=== PATIENT | female | born 1930 | race African-American/Black ===

== ENCOUNTER 2017-02-06 06:52 | Inpatient (IN) | payer OTHER ==
[2017-02-06 07:18] VITALS: BMI 15.6
[2017-02-06] MEDS ORDERED: ACETAMINOPHEN 1000 MG/100 ML VIAL (NON FORMULARY) IVPB ONE (07:29)
--- NOTE | 2017-02-06 07:36 | PDOC ---
History of Present Illness - General Chief Complaint: Injury Stated Complaint: FALL Time Seen by Provider: 02/06/17 07:11 History Source: Patient Exam Limitations: No Limitations - History of Present Illness Initial Comments: 02/06/17 07:50 86 yo F with significant PMHx of HTN, HLD, CHF, hypothyroidism , COPD and RA presents s/p fall x2. She states that last evening she fell walking from kitchen. she is not sure why she fell. She did not feel dizzy or legs did not give out. Unsure if she hit her head but was lightheaded after fall. Her aid was there to help her up. She was able to walk after. She then went to sleep and had to urinate. When she went to get up she states that her legs gave out and she fell again. Her niece was there to help her and called 911. She is not complaining of severe right leg pain 10/10 worse when she moves. No alleviating factors. Denies CP, DUTTON, SOB, abd. pain, N/V. Occurred: reports: just prior to arrival Severity: reports: moderate Pain Location: reports: lower extremity Method of Injury: Yes: fall Modifying Factors: improves with: rest Loss of Consciousness: no loss of consciousness Associated Symptoms (Fall): trouble walking Past History - Travel Traveled outside of the country in the last 30 days: No Close contact w/someone who was outside of country & ill: No - Past Medical History Allergies/Adverse Reactions: Allergies Allergy/AdvReac Type Severity Reaction Status Date / Time lactose Allergy Mild Verified 02/06/17 07:00 meperidine HCl [From Demerol] Allergy Verified 02/06/17 07:00 TAPE AdvReac Intermediate Uncoded 02/06/17 07:00 Home Medications: Ambulatory Orders Aspirin [ASA -] 81 mg PO DAILY 02/06/17 Atorvastatin Ca [Lipitor] 20 mg PO HS 02/06/17 Clopidogrel Bisulfate [Plavix -] 75 mg PO DAILY 02/06/17 Docusate Sodium 100 mg PO TID 02/06/17 Folic Acid 1 mg PO DAILY 02/06/17 Furosemide [Lasix] 40 mg PO DAILY 02/06/17 Isosorbide Mononitrate [Imdur -] 30 mg PO DAILY 02/06/17 Levothyroxine [Synthroid -] 50 mcg PO DAILY 02/06/17 Metoprolol Succinate [Toprol Xl] 50 mg PO DAILY 02/06/17 Montelukast Na [Singulair -] 10 mg PO HS 02/06/17 Multivitamin [Poly-Vitamin] 1 each PO DAILY 02/06/17 Omeprazole/Sodium Bicarbonate [Omeprazole-Bicarb 20-1,100 Cap] 1 each PO DAILY 02/06/17 Oxycodone HCl/Acetaminophen [Percocet 10-325 mg Tablet] 1 each PO Q6H PRN Prednisone 25 mg PO DAILY 02/06/17 Tizanidine HCl 2 mg PO DAILY 02/06/17 Trazodone HCl 50 mg PO HS 02/06/17 Anemia: Yes Asthma: Yes Cancer: No Cardiac Disorders: Yes CVA: No COPD: Yes (asthma, bronchitisbronchial pneumonia) CHF: No Dementia: No Diabetes: No GI Disorders: Yes (DIVERTICULITIS, polypscouldn'tbe taken out as pt on plavix and couldn't be) Disorders: No HTN: Yes Hypercholesterolemia: Yes Liver Disease: No Suicide Attempt (Hx): No Seizures: Yes (h/o trance-like episodes) Thyroid Disease: Yes (hypo) - Surgical History Abdominal Surgery: Yes Appendectomy: Yes Cardiac Surgery: Yes (cardiac stent X 3) Cholecystectomy: Yes Lung Surgery: Yes (Pul TB Lobectomy) Neurologic Surgery: No Orthopedic Surgery: Yes (RT HIP REPLACEMENT) - Immunization History Immunization Up to Date: Yes - Psycho/Social/Smoking Cessation Hx Anxiety: No Suicidal Ideation: No Smoking Status: Yes Smoking History: Never smoked Have you smoked in the past 12 months: No Number of Cigarettes Smoked Daily: 2 Information on smoking cessation initiated: No 'Breaking Loose' booklet given: 02/02/14 Hx Alcohol Use: No Drug/Substance Use Hx: No Substance Use Type: None Hx Substance Use Treatment: No Trauma Specific PMHX - Complaint Specific PMHX Arthritis: Yes (RA on chronic prednisone. ) Review of Systems - Review of Systems Able to Perform ROS?: Yes Is the patient limited Thai proficient: No Musculoskeletal: Yes: Joint Pain, Joint Stiffness All Other Systems: Reviewed and Negative *Physical Exam - Vital Signs Last Vital Signs Temp Pulse Resp BP Pulse Ox 97.1 F L 86 18 120/57 97 02/06/17 07:00 02/06/17 07:00 02/06/17 07:00 02/06/17 07:00 02/06/17 07:00 - Physical Exam General Appearance: Yes: Moderate Distress HEENT: positive: EOMI, MARCIO, Other (bilat. cataract) Neck: positive: Supple Respiratory/Chest: positive: Lungs Clear, Normal Breath Sounds. negative: Respiratory Distress, Accessory Muscle Use Cardiovascular: positive: Regular Rhythm, Tachycardia, Gallop/S3 Vascular Pulses: Dorsalis-Pedis (R): 1+, Doralis-Pedis (L): 1+ Gastrointestinal/Abdominal: positive: Normal Bowel Sounds, Flat, Soft, Other ( surgical scars midline). negative: Pulsatile Mass Musculoskeletal: positive: Normal Inspection. negative: CVA Tenderness Extremity: positive: Tender (severely tender on right hip. ), Other (calcified nodules on bilat. lateral thighs ). negative: Normal Range of Motion, Pelvis Stable, Swelling, Calf Tenderness Integumentary: positive: Normal Color, Dry, Warm, Other (calcified nodularities of bilat. lateral thighs. ). negative: Cyanotic, Erythema, Jaundice Neurologic: positive: edge burnisher II-XII NML intact, Fully Oriented, Alert, Normal Mood/ Affect. negative: Sensory Deficit ED Treatment Course - LABORATORY CBC & Chemistry Diagram: 02/07/17 06:40 02/07/17 06:40 - RADIOLOGY Radiology Studies Ordered: Category Date Time Status HEAD CT WITHOUT CONTRAST [CT] Stat CT Scan 02/06/17 07:29 Ordered HIP & PELVIS-RIGHT [RAD] Stat Radiology 02/06/17 07:27 Ordered Radiograph Interpretation: 02/06/17 09:44 * CT/HEAD CT WITHOUT CONTRAST Status post fall. CT scan of the brain without intravenous contrast. Since 09/01/2015, there remains moderate volume that is more prominent in the posterior fossa and moderate ventricular dilatation. Moderate periventricular chronic microvascular ischemic changes are present. No mass lesion, focal acute infarct or intracranial hemorrhage is seen. There is no shift of the midline structures. Minimal mucosal thickening in the ethmoid air cells. Calcification of the cavernous carotid arteries are present. The mastoid air cells are well aerated and the calvarium is intact IMPRESSION: No significant interval change or acute lung disease is present. Correlate clinically to determine further evaluation and follow-up Reported By: Sanjay Barnes MD 02/06/17 0901 Medical Decision Making - Medical Decision Making 02/06/17 08:06 A:86 yo F with significant PMHx of HTN, HLD, CHF, hypothyroidism , COPD and RA presents s/p fall x2. Possible hip fracture and will r/o IC bleed. P: * CBC,CMP,UA, and B12 * Hip/Pelvic Xray and Head CT w/o contrast. * IV tylenol for pain . *DC/Admit/Observation/Transfer Diagnosis at time of Disposition: Pelvic fracture Qualifiers: Encounter type: initial encounter Pelvic bone location: pubis Sublocation of pubis: unspecified portion of pubis Fracture type: closed Laterality: right Qualified Code(s): S32.501A - Unspecified fracture of right pubis, initial encounter for closed fracture - Discharge Dispostion Condition at time of disposition: Fair
[2017-02-06] MEDS ORDERED: ACETAMINOPHEN INJECTION 100 ML IVPB ONE (07:54)
--- NOTE | 2017-02-06 08:25 | PDOC ---
Attending Attestation - Resident Resident Name: Jose Eduardo Peoples - ED Attending Attestation I have performed the following: I have examined & evaluated the patient, The case was reviewed & discussed with the resident, I agree w/resident's findings & plan, Exceptions are as noted - HPI HPI: 02/06/17 08:22 86-year-old female with history of rheumatoid arthritis who walks with a walker at baseline presents with 2 falls since last night, the first with head injury but no loss of consciousness, the second this morning due to right leg weakness. Unable to stand after the second fall because of right groin/hip pain , has worsened mobility of her right lower extremity compared to baseline. No headache or focal neuro complaints. - Physicial Exam PE: 02/06/17 08:23 Vital signs normal. Head atraumatic. Right groin/pelvic tenderness, limited range of motion of the right lower extremity, but no shortening or rotation - Medical Decision Making 02/06/17 08:24 Patient seen and evaluated with the resident. I agree with the overall evaluation, assessment, and management with the following summary of visit: 86-year-old female with 2 falls, positive head injury, apparent right hip injury. Possible pelvic fracture, rule out TBI. Labs, urinalysis CT head, hip and right pelvis Pain control Likely admission 02/06/17 12:29 labs wnl, CT confirms fracture R inf pubis and ischial spine fx. non-ambulatory and requiring pain meds, will need pain control and likely rehab. D/W Dr. Centeno, agrees and requests admission to Dr. Godwin, who accepts pt for inpatient med/surg. Discharge Disposition - Diagnosis Pelvic fracture Qualifiers: Encounter type: initial encounter Pelvic bone location: pubis Sublocation of pubis: unspecified portion of pubis Fracture type: closed Laterality: right Qualified Code(s): S32.501A - Unspecified fracture of right pubis, initial encounter for closed fracture - Discharge Dispostion Condition at time of disposition: Fair Last Admission D/C Date: 09/05/15 Admit: Yes - Referrals Referrals: Jeff Centeno MD [Primary Care Provider] -
[2017-02-06 08:38] LABS: BASOPHIL 0.8 % (0-2.0); EOSINOPHIL 1.4 % (0-4.5); MCH 30.9 pg (25.7-33.7); MCHC 33.6 g/dl (32.0-36.0); MEAN CELL VOLUME 92.1 fl (80-96); MEAN PLT VOLUME 6.3 fl (7.5-11.1); NEUTROPHILS 77.8 % (42.8-82.8); PLATELET COUNT 364 K/MM3 (134-434); RDW 17.7 % (11.6-15.6); WHITE BLOOD COUNT 12.8 K/mm3 (4.0-10.0)
[2017-02-06 08:49] LABS: ALBUMIN 3.8 g/dl (3.4-5.0); BILIRUBIN,TOTAL 0.4 mg/dL (0.2-1.0); CALCIUM 8.9 mg/dL (8.5-10.1); COCKROFT - GAULT 25.6955; CREATININE 0.9 mg/dL (0.55-1.02); TOT PROT 7.7 g/dl (6.4-8.2)
[2017-02-06] MEDS ORDERED: oxyCODONE HCL 5 MG TABLET PO PRN (13:38)
[2017-02-06] MEDS ORDERED: ACETAMINOPHEN 325 MG TABLET (FP) PO PRN (13:38)
--- NOTE | 2017-02-06 13:58 | EKG ---
Test Reason : Blood Pressure : / mmHG Vent. Rate : 080 BPM Atrial Rate : 080 BPM P-R Int : 144 ms QRS Dur : 136 ms QT Int : 406 ms P-R-T Axes : 079 -61 014 degrees QTc Int : 468 ms NORMAL SINUS RHYTHM RIGHT BUNDLE BRANCH BLOCK LEFT ANTERIOR FASCICULAR BLOCK BIFASCICULAR BLOCK ABNORMAL ECG WHEN COMPARED WITH ECG OF 26-MAR-2016 20:14, ST NO LONGER DEPRESSED IN ANTERIOR LEADS Confirmed by KATT GALVEZ MD ([id number]) on 02/06/2017 1:58:34 PM Referred By: Confirmed By:KATT GALVEZ MD
[2017-02-06] MEDS ORDERED: DOCUSATE SODIUM 100 MG CAPSULE (FP) PO ONE (14:50)
[2017-02-06] MEDS ORDERED: oxyCODONE HCL 5 MG TABLET ONE (15:16)
[2017-02-06] MEDS: DOCUSATE SODIUM 100 MG CAPSULE (FP) PO SCH ×2 (17:52→21:09)
[2017-02-06 19:03] LABS: URINE APPEARANCE CLEAR; URINE BILIRUBIN NEGATIVE (NEGATIVE); URINE COLOR LTYELLOW; URINE GLUCOSE (UA) NEGATIVE (NEGATIVE); URINE KETONE NEGATIVE (NEGATIVE); URINE LEUK ESTERASE NEGATIVE (NEGATIVE); URINE NITRITE NEGATIVE (NEGATIVE); URINE PROTEIN NEGATIVE (NEGATIVE); URINE UROBILINOGEN NEGATIVE E.U./dl (0.2-1.0)
[2017-02-06 19:07] LABS: URINE BLOOD 1+ (NEGATIVE)
[2017-02-06 19:12] LABS: URINE RBC 4 /hpf (0-3); URINE WBC <1 /hpf (3-5)
[2017-02-06] MEDS: oxyCODONE HCL 5 MG TABLET PO PRN (19:55)
[2017-02-06] MEDS: ACETAMINOPHEN 325 MG TABLET (FP) PO PRN (19:57)
[2017-02-06] MEDS: MONTELUKAST NA 10 MG TABLET PO SCH (21:09)
[2017-02-06] MEDS: ATORVASTATIN CA 20 MG TABLET (FP) PO SCH (21:09)
[2017-02-07] MEDS: ACETAMINOPHEN 325 MG TABLET (FP) PO PRN ×5 (00:05→19:23)
[2017-02-07] MEDS: oxyCODONE HCL 5 MG TABLET PO PRN ×5 (00:06→19:24)
[2017-02-07] MEDS: LEVOTHYROXINE NA 50 MCG TABLET (FP) PO SCH (06:12)
[2017-02-07] MEDS: DOCUSATE SODIUM 100 MG CAPSULE (FP) PO SCH ×3 (06:12→21:31)
[2017-02-07 07:29] LABS: MCH 30.9 pg (25.7-33.7); MCHC 34.3 g/dl (32.0-36.0); MEAN CELL VOLUME 90.2 fl (80-96); MEAN PLT VOLUME 5.9 fl (7.5-11.1); PLATELET COUNT 351 K/MM3 (134-434); RDW 17.5 % (11.6-15.6); WHITE BLOOD COUNT 11.7 K/mm3 (4.0-10.0)
[2017-02-07 07:58] LABS: ALBUMIN 2.7 g/dl (3.4-5.0); ALK PHOS 67 U/L (45-117); ANION GAP 10 (8-16); BILIRUBIN,TOTAL 0.3 mg/dL (0.2-1.0); CALCIUM 8.3 mg/dL (8.5-10.1); CO2 25 mmol/L (21-32); COCKROFT - GAULT 46.2655; CREATININE 0.5 mg/dL (0.55-1.02); GLUCOSE,RANDOM 93 mg/dL (74-106); SGOT/AST 10 U/L (15-37); SGPT/ALT 14 U/L (12-78); TOT PROT 5.6 g/dl (6.4-8.2)
[2017-02-07] MEDS: CLOPIDOGREL BISULFATE 75 MG TABLET (FP) PO SCH (09:28)
[2017-02-07] MEDS: ISOSORBIDE MONONITRATE 30 MG TAB.SR.24H (FP) PO SCH (09:28)
[2017-02-07] MEDS: ASPIRIN 81 MG CHEWABLE TABLETS PO SCH (09:28)
[2017-02-07] MEDS: FOLIC ACID 1 MG TABLET (FP) PO SCH (09:28)
[2017-02-07] MEDS: METOPROLOL SUCCINATE 50 MG TAB.SR.24H (FP) PO SCH (09:28)
[2017-02-07] MEDS: predniSONE 5 MG TABLET (UD) PO SCH (09:28)
--- NOTE | 2017-02-07 10:29 | PN ---
Progress Note (short form) - Note Progress Note: Pt seen and examined. She is an 86 year old female 4 days s/p fall, with c/o pain with weight bearing in the right steph pelvis area. She is able to ambulate. PE Pt is quite thin. In NAD. B/L are NVI. Right hip + pain with log rolling and axial load, in entire right steph pelvis area. Good ROM at the right knee, ankle, foot, toes. Straight leg raise not possible bc of too much pain. Xrays and CT scan show acute fractures at the right inferior pubic ramus and the ischial spine. Imp 86 yo F 4 days s/p fall with acute fractures of the right inferior pubic ramus and ischial spine. Rec P.T. for ambulation, WBAT, walker, assistance. Consider anticoagulation, SCDs. Can DC from an orthopedic pov, no surgery planned. F/u as an out pt
--- NOTE | 2017-02-07 10:47 | HP ---
Admitting History and Physical - Primary Care Physician PCP: Jeff Centeno M - Admission Chief Complaint: s/p fall History of Present Illness: ER HISTORY - History of Present Illness Initial Comments: 02/06/17 07:50 86 yo F with significant PMHx of HTN, HLD, CHF, hypothyroidism , COPD and RA presents s/p fall x2. She states that last evening she fell walking from kitchen. she is not sure why she fell. She did not feel dizzy or legs did not give out. Unsure if she hit her head but was lightheaded after fall. Her aid was there to help her up. She was able to walk after. She then went to sleep and had to urinate. When she went to get up she states that her legs gave out and she fell again. Her niece was there to help her and called 911. She is not complaining of severe right leg pain 10/10 worse when she moves. No alleviating factors. Denies CP, DUTTON, SOB, abd. pain, N/V. Pt examined by me in the floors Pt walks with a walker and lives at home. Her legs gave out twice and fell twice. Found to have fractures of right inferior pubic ramus and ischial spine. C/o pain in right hip even after receiving Oxycodone today . Was seen by Ortho today . No dizziness, chest pain , head injuries. History Source: Patient Limitations to Obtaining History: No Limitations - Past Medical History Cardiovascular: Yes: CAD, HTN, Hyperlipdemia Gastrointestinal: Yes: Other (chronic biliary dilitation, dilitation common intrahepatic, hx colitis) Hepatobiliary: Yes: Other (MRCP--dilated intrahepatic ducts) Renal/: Yes: Other (hyponatremia) Heme/Onc: Yes: Anemia Musculoskeletal: Yes: Osteoarthritis (thigh pain , right THR), Other ( calicifications both thighs-- chronic per pt -- due to ?injection) Rheumatology: Yes: Rheumatoid Arthritis - Past Surgical History Past Surgical History: Yes: Appendectomy, Cholecystectomy, Joint Replacement (R THR), Stent - Smoking History Smoking history: Never smoked Have you smoked in the past 12 months: No Aproximately how many cigarettes per day: 2 - Alcohol/Substance Use Hx Alcohol Use: No - Social History Occupation: retired physician office secretary History of Recent Travel: No Home Medications - Allergies Allergies/Adverse Reactions: Allergies Allergy/AdvReac Type Severity Reaction Status Date / Time lactose Allergy Mild Verified 02/06/17 07:00 meperidine HCl [From Demerol] Allergy Verified 02/06/17 07:00 TAPE AdvReac Intermediate Uncoded 02/06/17 07:00 - Home Medications Home Medications: Ambulatory Orders Aspirin [ASA -] 81 mg PO DAILY 02/06/17 Atorvastatin Ca [Lipitor] 20 mg PO HS 02/06/17 Clopidogrel Bisulfate [Plavix -] 75 mg PO DAILY 02/06/17 Docusate Sodium 100 mg PO TID 02/06/17 Folic Acid 1 mg PO DAILY 02/06/17 Furosemide [Lasix] 40 mg PO DAILY 02/06/17 Isosorbide Mononitrate [Imdur -] 30 mg PO DAILY 02/06/17 Levothyroxine [Synthroid -] 50 mcg PO DAILY 02/06/17 Metoprolol Succinate [Toprol Xl] 50 mg PO DAILY 02/06/17 Montelukast Na [Singulair -] 10 mg PO HS 02/06/17 Multivitamin [Poly-Vitamin] 1 each PO DAILY 02/06/17 Omeprazole/Sodium Bicarbonate [Omeprazole-Bicarb 20-1,100 Cap] 1 each PO DAILY 02/06/17 Oxycodone HCl/Acetaminophen [Percocet 10-325 mg Tablet] 1 each PO Q6H PRN Prednisone 25 mg PO DAILY 02/06/17 Tizanidine HCl 2 mg PO DAILY 02/06/17 Trazodone HCl 50 mg PO HS 02/06/17 Family Disease History - Family Disease History Family Disease History: Heart Disease: Father, Mother, Other: Daughter (healthy and living) Review of Systems - Review of Systems Constitutional: denies: Chills, Fever Musculoskeletal: reports: Joint Pain Physical Examination Vital Signs: Vital Signs Temperature 98.8 F 02/07/17 09:31 Pulse Rate 95 H 02/07/17 09:31 Respiratory Rate 20 02/07/17 09:31 Blood Pressure 145/69 02/07/17 09:31 O2 Sat by Pulse Oximetry (%) 98 02/06/17 21:00 Constitutional: Yes: No Distress, Calm Cardiovascular: Yes: Regular Rate and Rhythm Respiratory: Yes: CTA Bilaterally Gastrointestinal: Yes: Normal Bowel Sounds, Soft, Other (surgical scar+). No: Tenderness Extremities: Yes: Other (able to move her legs , she had calcified maritza on both thighs which are chronic per patient) Edema: No Labs: CBC, BMP 02/07/17 06:40 02/07/17 06:40 Imaging - Results Chest X-ray: Image Reviewed (no infiltrate or congestion) X-ray: Report Reviewed Cat Scan: Report Reviewed EKG: Image Reviewed (NSR, Left ant. fascicular block) Problem List - Problems (1) Pelvic fracture Code(s): S32.9XXA - FRACTURE OF UNSP PARTS OF LUMBOSACRAL SPINE AND PELVIS, INIT Qualifiers: Encounter type: initial encounter Pelvic bone location: pubis Sublocation of pubis: unspecified portion of pubis Fracture type: closed Laterality: right Qualified Code(s): S32.501A - Unspecified fracture of right pubis, initial encounter for closed fracture (2) Intractable pain Code(s): R52 - PAIN, UNSPECIFIED (3) HTN (hypertension) Code(s): I10 - ESSENTIAL (PRIMARY) HYPERTENSION Qualifiers: Hypertension type: essential hypertension Qualified Code(s): I10 - Essential (primary) hypertension (4) Hip pain Code(s): M25.559 - PAIN IN UNSPECIFIED HIP Qualifiers: Laterality: left Qualified Code(s): M25.552 - Pain in left hip (5) Fall Code(s): W19.XXXA - UNSPECIFIED FALL, INITIAL ENCOUNTER Assessment/Plan PLAN Pain control -- add tramadol Physical therapy continue with meds CT head- negative CT pelvis shows fractures of rt pubic ramus and ischial spine OOB DVT prophylaxis- Heparin sc Ortho eval noted may need SNF Spoke with nurse Time spent 30 min
[2017-02-07] MEDS: traMADol HCL 50 MG TABLET PO PRN ×3 (12:17→21:31)
[2017-02-07] MEDS: PANTOPRAZOLE 40 MG TABLET (FP) PO SCH (12:18)
[2017-02-07] MEDS: MONTELUKAST NA 10 MG TABLET PO SCH (21:31)
[2017-02-07] MEDS: ATORVASTATIN CA 20 MG TABLET (FP) PO SCH (21:31)
[2017-02-08] MEDS: oxyCODONE HCL 5 MG TABLET PO PRN ×5 (02:56→21:55)
[2017-02-08] MEDS: ACETAMINOPHEN 325 MG TABLET (FP) PO PRN ×5 (02:57→21:56)
[2017-02-08] MEDS: traMADol HCL 50 MG TABLET PO PRN ×3 (05:42→19:53)
[2017-02-08] MEDS: DOCUSATE SODIUM 100 MG CAPSULE (FP) PO SCH ×3 (05:43→21:10)
[2017-02-08] MEDS: LEVOTHYROXINE NA 50 MCG TABLET (FP) PO SCH (06:09)
[2017-02-08] MEDS: ENOXAPARIN NA (PORCINE) 40 MG/0.4 ML DISP.SYRIN SQ SCH (10:23)
[2017-02-08] MEDS: ISOSORBIDE MONONITRATE 30 MG TAB.SR.24H (FP) PO SCH (10:23)
[2017-02-08] MEDS: PANTOPRAZOLE 40 MG TABLET (FP) PO SCH (10:23)
[2017-02-08] MEDS: FOLIC ACID 1 MG TABLET (FP) PO SCH (10:23)
[2017-02-08] MEDS: predniSONE 5 MG TABLET (UD) PO SCH (10:23)
[2017-02-08] MEDS: ASPIRIN 81 MG CHEWABLE TABLETS PO SCH (10:23)
[2017-02-08] MEDS: METOPROLOL SUCCINATE 50 MG TAB.SR.24H (FP) PO SCH (10:24)
[2017-02-08] MEDS: CLOPIDOGREL BISULFATE 75 MG TABLET (FP) PO SCH (10:24)
--- NOTE | 2017-02-08 10:37 | DS ---
Physical Examination Vital Signs: Vital Signs Temperature 98.4 F 02/08/17 05:38 Pulse Rate 90 02/08/17 05:38 Respiratory Rate 20 02/08/17 05:38 Blood Pressure 154/76 02/08/17 05:38 O2 Sat by Pulse Oximetry (%) 98 02/07/17 21:00 Labs: CBC, BMP 02/07/17 06:40 02/07/17 06:40 <Kristi Godwin - Last Filed: 02/08/17 10:36> Vital Signs: Vital Signs Temperature 98.4 F 02/08/17 05:38 Pulse Rate 90 02/08/17 05:38 Respiratory Rate 20 02/08/17 05:38 Blood Pressure 154/76 02/08/17 05:38 O2 Sat by Pulse Oximetry (%) 98 02/07/17 21:00 Findings/Remarks: Patient seen and examined. Comfortable. Pain under control. Ortho follow up noted. Constitutional: Yes: No Distress, Calm Neck: Yes: Supple Cardiovascular: Yes: Regular Rate and Rhythm Respiratory: Yes: CTA Bilaterally Edema: No Neurological: Yes: Alert Labs: CBC, BMP 02/07/17 06:40 02/07/17 06:40 <Jeane Hernández - Last Filed: 02/08/17 11:17> Discharge Summary Reason For Visit: FRACTURE OF PELVIS Current Active Problems DVT prophylaxis (Acute) Dilated cbd, acquired (Acute) Fall (Acute) Pelvic fracture (Acute) COPD (chronic obstructive pulmonary disease) (Chronic) Intractable pain (Chronic) - Home Medications Comprehensive Discharge Medication List: Ambulatory Orders Aspirin [ASA -] 81 mg PO DAILY 02/06/17 Atorvastatin Ca [Lipitor] 20 mg PO HS 02/06/17 Clopidogrel Bisulfate [Plavix -] 75 mg PO DAILY 02/06/17 Docusate Sodium 100 mg PO TID 02/06/17 Folic Acid 1 mg PO DAILY 02/06/17 Furosemide [Lasix] 40 mg PO DAILY 02/06/17 Isosorbide Mononitrate [Imdur -] 30 mg PO DAILY 02/06/17 Levothyroxine [Synthroid -] 50 mcg PO DAILY 02/06/17 Metoprolol Succinate [Toprol Xl] 50 mg PO DAILY 02/06/17 Montelukast Na [Singulair -] 10 mg PO HS 02/06/17 Multivitamin [Poly-Vitamin] 1 each PO DAILY 02/06/17 Omeprazole/Sodium Bicarbonate [Omeprazole-Bicarb 20-1,100 Cap] 1 each PO DAILY 02/06/17 Tizanidine HCl 2 mg PO DAILY 02/06/17 Trazodone HCl 50 mg PO HS 02/06/17 Acetaminophen [Tylenol .Regular Strength -] 325 mg PO Q4H PRN #0 tablet Enoxaparin [Lovenox -] 40 mg SQ DAILY #40 inch 02/08/17 Pantoprazole Sodium [Protonix -] 40 mg PO DAILY #30 cap 02/08/17 Prednisone [Deltasone -] 5 mg PO DAILY tablet 02/08/17 Tramadol HCl [Ultram -] 50 mg PO Q4H PRN #60 tablet MDD 4 02/08/17 <Kristi Godwin - Last Filed: 02/08/17 10:36> Current Active Problems DVT prophylaxis (Acute) Dilated cbd, acquired (Acute) Fall (Acute) Pelvic fracture (Acute) COPD (chronic obstructive pulmonary disease) (Chronic) Intractable pain (Chronic) Hospital Course: Patient is a 86 yo F with PMHx of HTN, HLD, CHF, hypothyroidism, COPD and RA who was admitted to the hospital s/p fall. Workup revealed she has R inferior pubic ramus fracture. Ortho consult was taken. No surgery intervention needed. Pt will need PT. Will benefit from short term rehab. Discussed with patient. Patient lives alone. Patient agrees with the plan. Medically stable for d.c when bed available. Meds reconciled and updated. Plan discussed with nursing staff and casey saw operator. Time spent discharge planning, examining and documenting as well as coordinating care: 35 mins Documentation prepared by Jeane Hernández, acting as a medical economics consultant for Kristi Godwin MD. - Home Medications Comprehensive Discharge Medication List: Ambulatory Orders Aspirin [ASA -] 81 mg PO DAILY 02/06/17 Atorvastatin Ca [Lipitor] 20 mg PO HS 02/06/17 Clopidogrel Bisulfate [Plavix -] 75 mg PO DAILY 02/06/17 Docusate Sodium 100 mg PO TID 02/06/17 Folic Acid 1 mg PO DAILY 02/06/17 Furosemide [Lasix] 40 mg PO DAILY 02/06/17 Isosorbide Mononitrate [Imdur -] 30 mg PO DAILY 02/06/17 Levothyroxine [Synthroid -] 50 mcg PO DAILY 02/06/17 Metoprolol Succinate [Toprol Xl] 50 mg PO DAILY 02/06/17 Montelukast Na [Singulair -] 10 mg PO HS 02/06/17 Multivitamin [Poly-Vitamin] 1 each PO DAILY 02/06/17 Omeprazole/Sodium Bicarbonate [Omeprazole-Bicarb 20-1,100 Cap] 1 each PO DAILY 02/06/17 Tizanidine HCl 2 mg PO DAILY 02/06/17 Trazodone HCl 50 mg PO HS 02/06/17 Acetaminophen [Tylenol .Regular Strength -] 325 mg PO Q4H PRN #0 tablet Enoxaparin [Lovenox -] 40 mg SQ DAILY #40 inch 02/08/17 Pantoprazole Sodium [Protonix -] 40 mg PO DAILY #30 cap 02/08/17 Prednisone [Deltasone -] 5 mg PO DAILY tablet 02/08/17 Tramadol HCl [Ultram -] 50 mg PO Q4H PRN #60 tablet MDD 4 02/08/17 <Jeane Hernández - Last Filed: 02/08/17 11:17> Condition: Fair - Instructions Referrals: Jeff Centeno MD [Primary Care Provider] -
--- NOTE | 2017-02-08 10:45 | PN ---
Progress Note (short form) - Note Progress Note: AVSS MORE COMFORTABLE TODAY CALF SOFT AND NT NVI IMP: IMPROVING PLAN: OOB, PT-WBAT, DC PLANING
[2017-02-08] MEDS: MONTELUKAST NA 10 MG TABLET PO SCH (21:10)
[2017-02-08] MEDS: ATORVASTATIN CA 20 MG TABLET (FP) PO SCH (21:10)
[2017-02-09] MEDS: oxyCODONE HCL 5 MG TABLET PO PRN ×4 (02:06→14:41)
[2017-02-09] MEDS: ACETAMINOPHEN 325 MG TABLET (FP) PO PRN ×4 (02:07→14:41)
[2017-02-09] MEDS: DOCUSATE SODIUM 100 MG CAPSULE (FP) PO SCH ×2 (06:02→15:15)
[2017-02-09] MEDS: LEVOTHYROXINE NA 50 MCG TABLET (FP) PO SCH (06:03)
[2017-02-09] MEDS: FOLIC ACID 1 MG TABLET (FP) PO SCH (09:45)
[2017-02-09] MEDS: ISOSORBIDE MONONITRATE 30 MG TAB.SR.24H (FP) PO SCH (09:45)
[2017-02-09] MEDS: PANTOPRAZOLE 40 MG TABLET (FP) PO SCH (09:45)
[2017-02-09] MEDS: METOPROLOL SUCCINATE 50 MG TAB.SR.24H (FP) PO SCH (09:45)
[2017-02-09] MEDS: ENOXAPARIN NA (PORCINE) 40 MG/0.4 ML DISP.SYRIN SQ SCH (09:45)
[2017-02-09] MEDS: predniSONE 5 MG TABLET (UD) PO SCH (09:45)
[2017-02-09] MEDS: ASPIRIN 81 MG CHEWABLE TABLETS PO SCH (09:45)
[2017-02-09] MEDS: CLOPIDOGREL BISULFATE 75 MG TABLET (FP) PO SCH (09:45)
--- NOTE | 2017-02-09 12:56 | PN ---
Progress Note (short form) - Note Progress Note: comfortable but need pain meds no other issues Vital Signs Temp 98 F 02/09/17 06:18 Pulse 86 02/09/17 06:18 Resp 18 02/09/17 06:18 BP 153/81 02/09/17 06:18 Pulse Ox 96 02/08/17 08:00 Intake & Output 02/08/17 02/09/17 02/09/17 23:59 11:59 23:59 Intake Total 350 400 Output Total 400 200 Balance -50 200 Weight 96 lb 8 oz Intake: Oral 350 400 Output: Urine 400 200 Void 400 200 Other: Voiding Method Bedpan Bedpan Bowel Movement Yes Active Medications Acetaminophen (Tylenol -) 325 mg PO Q4H PRN PRN Reason: PAIN Last Admin: 02/09/17 09:53 Dose: 325 mg Aspirin (Asa -) 81 mg PO DAILY [facility] Last Admin: 02/09/17 09:45 Dose: 81 mg Atorvastatin Calcium (Lipitor -) 20 mg PO [facility] Last Admin: 02/08/17 21:10 Dose: 20 mg Clopidogrel Bisulfate (Plavix -) 75 mg PO DAILY [facility] Last Admin: 02/09/17 09:45 Dose: 75 mg Docusate Sodium (Colace -) 100 mg PO TID [facility] Last Admin: 02/09/17 06:02 Dose: 100 mg Enoxaparin Sodium (Lovenox -) 40 mg SQ DAILY [facility] Last Admin: 02/09/17 09:45 Dose: 40 mg Folic Acid (Folic Acid -) 1 mg PO DAILY [facility] Last Admin: 02/09/17 09:45 Dose: 1 mg Isosorbide Mononitrate (Imdur -) 30 mg PO DAILY [facility] Last Admin: 02/09/17 09:45 Dose: 30 mg Levothyroxine Sodium (Synthroid -) 50 mcg PO DAILY@0700 [facility] Last Admin: 02/09/17 06:03 Dose: 50 mcg Metoprolol Succinate (Toprol Xl -) 50 mg PO DAILY [facility] Last Admin: 02/09/17 09:45 Dose: 50 mg Montelukast Sodium (Singulair -) 10 mg PO [facility] Last Admin: 02/08/17 21:10 Dose: 10 mg Oxycodone HCl (Roxicodone -) 10 mg PO Q4H PRN PRN Reason: PAIN Last Admin: 02/09/17 09:54 Dose: 10 mg Pantoprazole Sodium (Protonix -) 40 mg PO DAILY [facility] Last Admin: 02/09/17 09:45 Dose: 40 mg Prednisone (Deltasone -) 5 mg PO DAILY [facility] Last Admin: 02/09/17 09:45 Dose: 5 mg Tramadol HCl (Ultram -) 50 mg PO Q4H PRN PRN Reason: PAIN Last Admin: 02/08/17 19:53 Dose: 50 mg Physical Constitutional: Yes: No Distress, Calm/ comfortable Neck: Yes: Supple Cardiovascular: Yes: Regular Rate and Rhythm Respiratory: Yes: CTA Bilaterally Edema: No Neurological: Yes: Alert a/p stable anticipate d/c to long-term for str today discussed with transplant case manager see discharge summary of yesterday
[2017-02-09 14:05] VITALS: PULSE 88; TEMP 98.4
[2017-02-09 16:42] VITALS: BP 138/74
== END 2017-02-09 17:32 | DRG 536 ==
LOC: JER 06:52 → JERBED 13:00 → J6S 15:35
PROVIDERS: ADMIT Internal Medicine; ATTEND Internal Medicine
DX: S32.591A Other specified fracture of right pubis, initial encounter for closed fracture (principal); E03.9 Hypothyroidism, unspecified; J44.9 Chronic obstructive pulmonary disease, unspecified; I11.0 Hypertensive heart disease with heart failure; I50.9 Heart failure, unspecified; E78.5 Hyperlipidemia, unspecified; M06.9 Rheumatoid arthritis, unspecified; W18.39XA Other fall on same level, initial encounter; Y93.89 Activity, other specified; Y92.090 Kitchen in other non-institutional residence as the place of occurrence of the external cause; Y99.8 Other external cause status
CPT/HCPCS: 36415; 70450-TC; 71010-TC; 72192-TC; 73523-TC; 80053; 81003; 81015; 82607; 85025; 85027; 93005; 93010; 97116-GP; 97162-PG; 99285-25

== ENCOUNTER 2017-10-18 14:40 | Inpatient (IN) | payer OTHER ==
--- NOTE | 2017-10-18 15:31 | PDOC ---
Attending Attestation - Resident Resident Name: Edgar Roberto - ED Attending Attestation I have performed the following: I have examined & evaluated the patient, The case was reviewed & discussed with the resident, I agree w/resident's findings & plan, Exceptions are as noted - HPI HPI: 10/18/17 15:31 87y F hx of htn, HL, asthma, diverticulitis, cad on plavix presents s/p fall - pt states she fell yetserday morning and has been too weak to get up and to call EMS. She finally made it to the phone this morning and was able to call her landlord who called EMS. The pt denies head injury, LOC, neck pain, back pain, chest pain, palpitatoins, sob. Pt endorses some pain in the R wrist and L hip. On exam the pt has n focal tendernes sbut some pain on ROM of her R wrist. Her L hip noted for mild pain when ranging her leg. consider possible pelvic vs hip fx will obtain xray to r/o wrist fx labs to r/o metabolic dernagement, anemia ekg to screen for arrythmia ua to screen for occult infection . - Physicial Exam PE: 10/18/17 17:28 see abobve - Medical Decision Making 10/18/17 17:28 see abve Heart Score/ECG Review - ECG Impressions Comment:: 10/18/17 17:28 Twelve-lead EKG was performed and reviewed by me. There is normal sinus rhythm with a normal rate. 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
[2017-10-18] MEDS ORDERED: ACETAMINOPHEN 325 MG TABLET (FP) PO ONE (15:43)
[2017-10-18] MEDS ORDERED: ACETAMINOPHEN 325 MG TABLET (FP) ONE (16:47)
--- NOTE | 2017-10-18 16:57 | PDOC ---
History of Present Illness - General Chief Complaint: Injury Stated Complaint: FALL Time Seen by Provider: 10/18/17 15:23 - History of Present Illness Initial Comments: 10/18/17 16:59 The patient is an 87 year old female with a history of HTN, COPD, HLD, who presents for evaluation following a fall. The patient reports that she fell while going to the bathroom yesterday evening. She states that she was walking to the bathroom and her "legs gave out on her due to her arthritis". She denies LOC or head trauma. She denies any lightheadedness, dizziness, chest pain, SOB, or palpitations at the time of the fall nor currently. She states she was unable to get up and stayed there all night until she was found and EMS was called. She currently complains of left lower extremity pain. She denies any nausea, vomiting, abdominal pain, or changes with urination or bowel movements. Past History - Past Medical History Allergies/Adverse Reactions: Allergies Allergy/AdvReac Type Severity Reaction Status Date / Time lactose Allergy Mild Verified 02/06/17 07:00 meperidine HCl [From Demerol] Allergy Verified 02/06/17 07:00 TAPE AdvReac Intermediate Uncoded 02/06/17 07:00 Home Medications: Ambulatory Orders Atorvastatin Ca [Lipitor] 20 mg PO HS 02/06/17 Clopidogrel Bisulfate [Plavix -] 75 mg PO DAILY 02/06/17 Docusate Sodium 100 mg PO TID 02/06/17 Folic Acid 1 mg PO DAILY 02/06/17 Furosemide [Lasix] 40 mg PO DAILY 02/06/17 Isosorbide Mononitrate [Imdur -] 30 mg PO DAILY 02/06/17 Levothyroxine [Synthroid -] 50 mcg PO DAILY 02/06/17 Metoprolol Succinate [Toprol Xl] 50 mg PO DAILY 02/06/17 Multivitamin [Poly-Vitamin] 1 each PO DAILY 02/06/17 Acetaminophen [Tylenol .Regular Strength -] 325 mg PO Q4H PRN #0 tablet Oxycodone HCl [Roxicodone -] 10 mg PO Q4H PRN #60 tablet MDD 6 02/08/17 Anemia: Yes Asthma: Yes Cancer: No Cardiac Disorders: Yes CVA: No COPD: Yes (asthma, bronchitisbronchial pneumonia) CHF: No Dementia: No Diabetes: No GI Disorders: Yes (DIVERTICULITIS, polypscouldn'tbe taken out as pt on plavix and couldn't be) Disorders: No HTN: Yes Hypercholesterolemia: Yes Liver Disease: No Seizures: Yes (h/o trance-like episodes) Thyroid Disease: Yes (hypo) - Surgical History Abdominal Surgery: Yes Appendectomy: Yes Cardiac Surgery: Yes (cardiac stent X 3) Cholecystectomy: Yes Lung Surgery: Yes (Pul TB Lobectomy) Neurologic Surgery: No Orthopedic Surgery: Yes (RT HIP REPLACEMENT) - Immunization History Immunization Up to Date: Yes - Suicide/Smoking/Psychosocial Hx Smoking Status: Yes Smoking History: Never smoked Have you smoked in the past 12 months: No Number of Cigarettes Smoked Daily: 2 Information on smoking cessation initiated: No 'Breaking Loose' booklet given: 02/02/14 Hx Alcohol Use: No Drug/Substance Use Hx: No Substance Use Type: None Hx Substance Use Treatment: No Review of Systems - Review of Systems Comments:: 10/18/17 17:05 Constitutional: No fevers, chills, fatigue, malaise HEENT: No Rhinorrhea, nasal congestion, visual changes Cardiovascular: No chest pain, syncope, palpitations, lightheadedness Respiratory: No Cough, SOB, Hemoptysis, Gastrointestinal: No Abdominal pain, Nausea, Vomiting, Constipation, Diarrhea, Melena Genitourinary: No Dysuria, Frequency, Urgency, Hesitancy, Hematuria, Flank pain Musculoskeletal: Left lower extremity pain. No Myalgia, arthralgia Skin: No rashes, bruising, pallor Neurologic: No Headache, Dizziness, Numbness, Weakness, or Tingling Psychiatric: No Hallucinations. No SI or HI *Physical Exam - Vital Signs Last Vital Signs Temp Pulse Resp BP Pulse Ox 98.3 F 101 H 20 154/86 96 10/18/17 14:42 10/18/17 14:42 10/18/17 14:42 10/18/17 14:42 10/18/17 14:42 - Physical Exam Comments: 10/18/17 17:05 General Appearance: Nourished. No Apparent Distress HEENT: EOMI, MARCIO. No obvious signs of head trauma. No Pharyngeal Erythema, Tonsillar Exudate, Tonsillar Erythema Neck: No Cervical Lymphadenopathy or -C-spine tenderness. Respiratory/Chest: Lungs Clear, Normal Breath Sounds. No Crackles, Rales, Rhonchi, Wheezing Cardiovascular: Regular Rhythm, Regular Rate. No Murmur, Gallops, Rubs Gastrointestinal/Abdominal: Normal Bowel Sounds, Soft. No Guarding, Rebound, Tenderness Musculoskeletal: No CVA Tenderness Extremity: Pain with movement of the left hip. Full range of motion of the left knee. Sensation to light touch and temperature intact in the distal extremities bilaterally, 2+ dp pulses bilaterally. Normal Capillary Refill Integumentary: Normal Color, Dry, Warm Neurologic: etcher machine II-XII NML intact, Fully Oriented, Alert, Normal Mood/Affect, Normal Response, ED Treatment Course - LABORATORY CBC & Chemistry Diagram: 10/18/17 18:00 10/18/17 18:00 - RADIOLOGY Radiology Studies Ordered: Category Date Time Status FEMUR-LEFT [RAD] Stat Radiology 10/18/17 15:41 Taken HIP & PELVIS-LEFT [RAD] Stat Radiology 10/18/17 15:41 Taken - Medications Given in the ED: ED Medications Discontinued Medications Generic Name Dose Route Start Last Admin Trade Name Joãoq PRN Reason Stop Dose Admin Acetaminophen 650 mg 10/18/17 15:43 10/18/17 16:51 Tylenol - PO 10/18/17 15:44 650 mg ONCE ONE Administration Oxycodone/Acetaminophen 1 combo 10/18/17 15:54 10/18/17 16:51 Percocet 5/325 - PO 10/18/17 15:55 1 combo ONCE ONE Administration Medical Decision Making - Medical Decision Making 10/18/17 17:11 The patient is an 87 year old female with a history of HTN, COPD, HLD, who presents for evaluation following a fall. Differential includes but is not limited to: Fracture, contusion, rhabdomylolysis, uti, infectious, metabolic derangement. Given the patient's physical exam, we will obtain plain films to evaluate for any signs of fracture. Given her long down time, we will obtain a cbc, cmp, cpk, ua to evaluate for other etiologies and rhabdo. We will continue to monitor and reassess. 10/18/17 18:00 Plain films do not demonstrate any signs of acute fracture as read by our radiologist. We attempted to walk the patient who reports that she is normally able to ambulate with a walker. The patient was unable to tolerate ambulation secondary to pain. Given her continued pain, we will obtain a ct pelvis to further evaluate for fracture. 10/18/17 19:00 Patient signed out to the night team. Dispo pending labs and ct pelvis. *DC/Admit/Observation/Transfer Diagnosis at time of Disposition: Hip pain Qualifiers: Laterality: left Qualified Code(s): M25.552 - Pain in left hip - Discharge Dispostion Condition at time of disposition: Stable - Referrals - Patient Instructions - Post Discharge Activity
[2017-10-18 18:18] LABS: BASO % 0.9 % (0-2.0); EOS % 3.1 % (0-4.5); HEMATOCRIT 32.9 % (32.4-45.2); HEMOGLOBIN 10.9 GM/dL (10.7-15.3); LYMPH % 16.4 % (8-40); MCH 29.5 pg (25.7-33.7); MCHC 33.1 g/dl (32.0-36.0); MEAN CELL VOLUME 89.3 fl (80-96); MONO % 5.7 % (3.8-10.2); NEUT % 73.9 % (42.8-82.8); PLATELET COUNT 627 K/MM3 (134-434); RBC 3.68 M/mm3 (3.60-5.2); RDW 16.6 % (11.6-15.6)
[2017-10-18 18:59] LABS: ALBUMIN 2.9 g/dl (3.4-5.0); ALK PHOS 100 U/L (45-117); ANION GAP 8 (8-16); BILIRUBIN,TOTAL 0.3 mg/dL (0.2-1.0); BLOOD UREA NITROGEN 12 mg/dL (7-18); CALCIUM 8.4 mg/dL (8.5-10.1); CHLORIDE 108 mmol/L (98-107); CO2 24 mmol/L (21-32); CREATININE 0.6 mg/dL (0.55-1.02); GLUCOSE,RANDOM 154 mg/dL (74-106); POTASSIUM 3.8 mmol/L (3.5-5.1); SGOT/AST 9 U/L (15-37); SGPT/ALT 10 U/L (12-78); SODIUM 140 mmol/L (136-145)
--- NOTE | 2017-10-18 19:54 | PDOC ---
History of Present Illness - General Chief Complaint: Injury Stated Complaint: FALL Time Seen by Provider: 10/18/17 15:23 Past History - Past Medical History Allergies/Adverse Reactions: Allergies Allergy/AdvReac Type Severity Reaction Status Date / Time lactose Allergy Mild Verified 02/06/17 07:00 meperidine HCl [From Demerol] Allergy Verified 02/06/17 07:00 TAPE AdvReac Intermediate Uncoded 02/06/17 07:00 Home Medications: Ambulatory Orders Aspirin [ASA -] 81 mg PO DAILY 02/06/17 Atorvastatin Ca [Lipitor] 20 mg PO HS 02/06/17 Clopidogrel Bisulfate [Plavix -] 75 mg PO DAILY 02/06/17 Docusate Sodium 100 mg PO TID 02/06/17 Folic Acid 1 mg PO DAILY 02/06/17 Furosemide [Lasix] 40 mg PO DAILY 02/06/17 Isosorbide Mononitrate [Imdur -] 30 mg PO DAILY 02/06/17 Levothyroxine [Synthroid -] 50 mcg PO DAILY 02/06/17 Metoprolol Succinate [Toprol Xl] 50 mg PO DAILY 02/06/17 Montelukast Na [Singulair -] 10 mg PO HS 02/06/17 Multivitamin [Poly-Vitamin] 1 each PO DAILY 02/06/17 Omeprazole/Sodium Bicarbonate [Omeprazole-Bicarb 20-1,100 Cap] 1 each PO DAILY 02/06/17 Tizanidine HCl 2 mg PO DAILY 02/06/17 Trazodone HCl 50 mg PO HS 02/06/17 Acetaminophen [Tylenol .Regular Strength -] 325 mg PO Q4H PRN #0 tablet Enoxaparin [Lovenox -] 40 mg SQ DAILY #40 inch 02/08/17 Oxycodone HCl [Roxicodone -] 10 mg PO Q4H PRN #60 tablet MDD 6 02/08/17 Pantoprazole Sodium [Protonix -] 40 mg PO DAILY #30 cap 02/08/17 Prednisone [Deltasone -] 5 mg PO DAILY tablet 02/08/17 Anemia: Yes Asthma: Yes Cancer: No Cardiac Disorders: Yes CVA: No COPD: Yes (asthma, bronchitisbronchial pneumonia) CHF: No Dementia: No Diabetes: No GI Disorders: Yes (DIVERTICULITIS, polypscouldn'tbe taken out as pt on plavix and couldn't be) Disorders: No HTN: Yes Hypercholesterolemia: Yes Liver Disease: No Seizures: Yes (h/o trance-like episodes) Thyroid Disease: Yes (hypo) - Surgical History Abdominal Surgery: Yes Appendectomy: Yes Cardiac Surgery: Yes (cardiac stent X 3) Cholecystectomy: Yes Lung Surgery: Yes (Pul TB Lobectomy) Neurologic Surgery: No Orthopedic Surgery: Yes (RT HIP REPLACEMENT) - Immunization History Immunization Up to Date: Yes - Suicide/Smoking/Psychosocial Hx Smoking Status: Yes Smoking History: Never smoked Have you smoked in the past 12 months: No Number of Cigarettes Smoked Daily: 2 Information on smoking cessation initiated: No 'Breaking Loose' booklet given: 02/02/14 Hx Alcohol Use: No Drug/Substance Use Hx: No Substance Use Type: None Hx Substance Use Treatment: No *Physical Exam - Vital Signs Last Vital Signs Temp Pulse Resp BP Pulse Ox 98.3 F 101 H 20 154/86 96 10/18/17 14:42 10/18/17 14:42 10/18/17 14:42 10/18/17 14:42 10/18/17 14:42 ED Treatment Course - LABORATORY CBC & Chemistry Diagram: 10/18/17 18:00 10/18/17 18:00 - ADDITIONAL ORDERS Additional order review: Laboratory Results 10/18/17 10/18/17 18:00 18:00 Sodium 140 Potassium 3.8 Chloride 108 H Carbon Dioxide 24 Anion Gap 8 BUN 12 Creatinine 0.6 Creat Clearance w eGFR > 60 Random Glucose 154 H Calcium 8.4 L Total Bilirubin 0.3 AST 9 L ALT 10 L D Alkaline Phosphatase 100 Creatine Kinase 132 Total Protein 7.0 D Albumin 2.9 L 10/18/17 18:00 RBC 3.68 MCV 89.3 MCHC 33.1 RDW 16.6 H MPV 6.0 L Neutrophils % 73.9 Lymphocytes % 16.4 D Monocytes % 5.7 Eosinophils % 3.1 D Basophils % 0.9 - Medications Given in the ED: ED Medications Discontinued Medications Generic Name Dose Route Start Last Admin Trade Name Freq PRN Reason Stop Dose Admin Acetaminophen 650 mg 10/18/17 15:43 10/18/17 16:51 Tylenol - PO 10/18/17 15:44 650 mg ONCE ONE Administration Oxycodone/Acetaminophen 1 combo 10/18/17 15:54 01/12/18 16:51 Percocet 5/325 - PO 10/18/17 15:55 1 combo ONCE ONE Administration Medical Decision Making - Medical Decision Making 10/18/17 19:49 Pt signed out by day team. Pt is a pleasant 87 y/o F who presented to ED with Left leg pain following a fall. Currently awaiting CT pelvis. CK normal. Pt stable, afebrile, in NAD. 10/19/17 00:14 CT pelvis shows no overt fracture. Pt is unable to bear weight. Pt accepted by hospitalist team for obs. 10/19/17 00:16 *DC/Admit/Observation/Transfer Diagnosis at time of Disposition: Hip pain Qualifiers: Laterality: left Qualified Code(s): M25.552 - Pain in left hip - Discharge Dispostion Condition at time of disposition: Stable Admit: Yes - Referrals Referrals: Jeff Centeno MD [Primary Care Provider] - - Patient Instructions - Post Discharge Activity
[2017-10-18 20:08] LABS: URINE APPEARANCE SLCLOUDY; URINE BILIRUBIN NEGATIVE (NEGATIVE); URINE BLOOD NEGATIVE (NEGATIVE); URINE COLOR YELLOW; URINE GLUCOSE (UA) NEGATIVE (NEGATIVE); URINE KETONE TRACE (NEGATIVE); URINE LEUK ESTERASE NEGATIVE (NEGATIVE); URINE NITRITE NEGATIVE (NEGATIVE); URINE PROTEIN NEGATIVE (NEGATIVE)
[2017-10-18] MEDS ORDERED: morphine CARPU-JECT 4 MG/1 ML DISP.SYRIN IVPUSH ONE (23:15)
[2017-10-18] MEDS ORDERED: morphine CARPU-JECT 2 MG/1 ML DISP.SYRIN IM ONE (23:28)
[2017-10-18] MEDS ORDERED: morphine CARPU-JECT 10 MG/1 ML DISP.SYRIN ONE (23:48)
--- NOTE | 2017-10-19 01:38 | HP ---
CHIEF COMPLAINT: left hip pain PCP: Jeff Centeno HISTORY OF PRESENT ILLNESS: This is an 87 year old female with a significant past medical history of falls and OA who presented to the ED s/p fall at home. She states her legs gave out under her and she was unable to get up until she heard her aid at the door the next morning and she called for help. Pt reports pain to her left hip since fall and is unable to ambulate. ER course was notable for: (1) xray and CT negative for fracture, severe [id number] arthritis of left hip Recent Travel: pt denies PAST MEDICAL HISTORY: HTN, HLD, CAD, asthma, diverticulitis, chronic biliary dilatation, colitis, hyponatremia, OA, seizures PAST SURGICAL HISTORY: cardiac stent x 3 cholecystectomy appendectomy TB lobectomy R THR Social History: Retired secretary to [employer] Smoking: quit 1 month ago, 1/2 ppd x 70 years Alcohol: pt denies Drugs: pt denies Family History: mother , liver CA father , unknown no siblings daughter alive and well Allergies lactose Allergy (Mild, Verified 02/06/17 07:00) meperidine HCl [From Demerol] Allergy (Verified 02/06/17 07:00) TAPE Adverse Reaction (Intermediate, Uncoded 02/06/17 07:00) FROM DURAGESIC PATCH HOME MEDICATIONS: 3 Medication Instructions Recorded Aspirin [ASA -] 81 mg PO DAILY 02/06/17 Atorvastatin Ca [Lipitor] 20 mg PO HS 02/06/17 Clopidogrel Bisulfate [Plavix -] 75 mg PO DAILY 02/06/17 Docusate Sodium 100 mg PO TID 02/06/17 Folic Acid 1 mg PO DAILY 02/06/17 Furosemide [Lasix] 40 mg PO DAILY 02/06/17 Isosorbide Mononitrate [Imdur -] 30 mg PO DAILY 02/06/17 Levothyroxine [Synthroid -] 50 mcg PO DAILY 02/06/17 Metoprolol Succinate [Toprol Xl] 50 mg PO DAILY 02/06/17 Montelukast Na [Singulair -] 10 mg PO HS 02/06/17 Multivitamin [Poly-Vitamin] 1 each PO DAILY 02/06/17 Omeprazole/Sodium Bicarbonate 1 each PO DAILY 02/06/17 [Omeprazole-Bicarb 20-1,100 Cap] Tizanidine HCl 2 mg PO DAILY 02/06/17 Trazodone HCl 50 mg PO HS 02/06/17 Acetaminophen [Tylenol .Regular 325 mg PO Q4H PRN #0 tablet 02/08/17 Strength -] Enoxaparin [Lovenox -] 40 mg SQ DAILY #40 inch 02/08/17 Oxycodone HCl [Roxicodone -] 10 mg PO Q4H PRN #60 tablet MDD 6 02/08/17 Pantoprazole Sodium [Protonix -] 40 mg PO DAILY #30 cap 02/08/17 Prednisone [Deltasone -] 5 mg PO DAILY tablet 02/08/17 Pt states she no longer takes many of these medications, some she stopped on her own because she feels they give her diarrhea and she stopped all her GI meds because Dr. Joseph "told her to." She denies taking: ASA, Tylenol, Lovenox, Lasix, Singulair, Omeprazole, oxycodone, Protonix, Prednisone, Tizanidine, trazodone REVIEW OF SYSTEMS CONSTITUTIONAL: Absent: fever, chills, diaphoresis, generalized weakness, malaise, loss of appetite, weight change HEENT: Absent: rhinorrhea, nasal congestion, throat pain, throat swelling, difficulty swallowing, mouth swelling, ear pain, eye pain, visual changes CARDIOVASCULAR: Absent: chest pain, syncope, palpitations, irregular heart rate, lightheadedness , peripheral edema RESPIRATORY: Absent: cough, shortness of breath, dyspnea with exertion, orthopnea, wheezing, stridor, hemoptysis GASTROINTESTINAL: Absent: abdominal pain, abdominal distension, nausea, vomiting, diarrhea, constipation, melena, hematochezia GENITOURINARY: Absent: dysuria, frequency, urgency, hesitancy, hematuria, flank pain, genital pain MUSCULOSKELETAL: Present, left hip pain Absent: myalgia, arthralgia, joint swelling, back pain, neck pain SKIN: Absent: rash, itching, pallor HEMATOLOGIC/IMMUNOLOGIC: Absent: easy bleeding, easy bruising, lymphadenopathy, frequent infections ENDOCRINE: Absent: unexplained weight gain, unexplained weight loss, heat intolerance, cold intolerance NEUROLOGIC: Absent: headache, focal weakness or paresthesias, dizziness, unsteady gait, seizure, mental status changes, bladder or bowel incontinence PSYCHIATRIC: Absent: anxiety, depression, suicidal or homicidal ideation, hallucinations. PHYSICAL EXAMINATION Vital Signs - 24 hr 3 10/18/17 14:42 Temperature 98.3 F Pulse Rate 101 H Respiratory 20 Rate Blood Pressure 154/86 O2 Sat by Pulse 96 Oximetry (%) GENERAL: Awake, alert, and fully oriented, in no acute distress. HEAD: Normal with no signs of trauma. EYES: Pupils equal, round and reactive to light, extraocular movements intact, sclera anicteric, conjunctiva clear. No lid lag. EARS, NOSE, THROAT: Ears normal, nares patent, oropharynx clear without exudates. Moist mucous membranes. NECK: Normal range of motion, supple without lymphadenopathy, JVD, or masses. LUNGS: Breath sounds equal, clear to auscultation bilaterally. No wheezes. No accessory muscle use. + crackles R base HEART: Regular rate and rhythm, normal S1 and S2 without murmur, rub or gallop. ABDOMEN: Soft, nontender, not distended, normoactive bowel sounds, no guarding, no rebound, no masses. No hepatomegaly or splenomegaly. MUSCULOSKELETAL: Normal range of motion at all joints. No bony deformities or tenderness. No CVA tenderness. UPPER EXTREMITIES: 2+ pulses, warm, well-perfused. No cyanosis. No clubbing. No peripheral edema. LOWER EXTREMITIES: 2+ pulses, warm, well-perfused. No calf tenderness. No peripheral edema. L hip with pain on ROM, no shortening or rotation NEUROLOGICAL: Cranial nerves II-XII intact. Normal speech. Normal gait. PSYCHIATRIC: Cooperative. Good eye contact. Appropriate mood and affect. SKIN: Warm, dry, normal turgor, no rashes or lesions noted, normal capillary refill. Laboratory Results - last 24 hr 3 10/18/17 10/18/17 10/18/17 18:00 18:00 18:00 WBC 7.0 D RBC 3.68 Hgb 10.9 D Hct 32.9 MCV 89.3 MCH 29.5 MCHC 33.1 RDW 16.6 H Plt Count 627 H D MPV 6.0 L Neutrophils % 73.9 Lymphocytes % 16.4 D Monocytes % 5.7 Eosinophils % 3.1 D Basophils % 0.9 Sodium 140 Potassium 3.8 Chloride 108 H Carbon Dioxide 24 Anion Gap 8 BUN 12 Creatinine 0.6 Creat Clearance w eGFR > 60 Random Glucose 154 H Calcium 8.4 L Total Bilirubin 0.3 AST 9 L ALT 10 L D Alkaline Phosphatase 100 Creatine Kinase 132 Total Protein 7.0 D Albumin 2.9 L Urine Color Urine Appearance Urine pH Ur Specific [place] Urine Protein Urine Glucose (UA) Urine Ketones Urine Blood Urine Nitrite Urine Bilirubin Urine Urobilinogen Ur Leukocyte Esterase 3 Urine Color Yellow 10/18/17 19:45 Urine Appearance Slcloudy 10/18/17 19:45 Urine pH 6.0 (5.0-8.0) 10/18/17 19:45 Ur Specific [place] 1.020 (1.001-1.035) 10/18/17 19:45 Urine Protein Negative (NEGATIVE) 10/18/17 19:45 Urine Glucose (UA) Negative (NEGATIVE) 10/18/17 19:45 Urine Ketones Trace (NEGATIVE) H 10/18/17 19:45 Urine Blood Negative (NEGATIVE) 10/18/17 19:45 Urine Nitrite Negative (NEGATIVE) 10/18/17 19:45 Urine Bilirubin Negative (NEGATIVE) 10/18/17 19:45 Ur Leukocyte Esterase Negative (NEGATIVE) 10/18/17 19:45 ECG Normal sinus rhythm Rate 99, QTC 508 possible LA enlargement RBB, LAFB Radiology Reports CT Pelvis Impression: 1. No acute displaced fracture or dislocation in the left hip or bony pelvis. If there is continued clinical suspicion for nondisplaced acute fracture, then consider further evaluation with nuclear medicine bone scintigraphy or MRI. 2. Severe [id number] osteoarthritis in the left hip as described above. Flattening of the left femoral head may be degenerative osseous remodeling, although, a component of AVN cannot be entirely excluded. 3. Small left hip joint effusion and prominent soft tissue surrounding the left hip which may be the sequela of synovitis, overall similar to 09/10/2017 CT. 4. Status post right total hip arthroplasty. 5. Partially imaged sheetlike ossifications in the soft tissues overlying bilateral femurs may be posttraumatic change or related to autoimmune, inflammatory or collagen vascular disease. Reported By: Jacob Trejo DO 10/18/17 2149 L Femur, hip and pelvis xray Impression: 1. No acute displaced fracture or dislocation in the pelvis, left hip or left femur. 2. Severe, [id number] osteoarthritic changes in the left hip with interval progression of left femoral head flattening since 06/26/2016. Left femoral head AVN is not excluded. 3. Extensive sheetlike soft tissue calcifications versus ossifications overlying the left femoral diaphysis appears similar to 06/26/2016 and may reflect chronic posttraumatic injury such as myositis ossificans, although, an autoimmune/inflammatory disease or collagen vascular disease are not excluded. 4. Status post right total hip arthroplasty. Reported By: Jacob Trejo DO 10/18/17 1702 R wrist Impression: 1. A 2 x 2 MM triangular-shaped ossific density in the radial soft tissues adjacent to the base of the first metacarpal may be an old fracture, indeterminant chronicity. Please correlate clinically with point tenderness. 2. Otherwise, no definite acute fracture in the remainder of the right hand or right wrist. 3. Osteoarthritic changes as described above. Reported By: Jacob Trejo DO 10/18/17 9829 ASSESSMENT/PLAN: 87yF with PMH HTN, HLD, CAD, asthma, diverticulitis, chronic biliary dilatation , colitis, hyponatremia, OA, seizures presented to the ED s/p fall with hip pain. Left hip pain - likely due to severe OA, unlikely fracture given negative CT results. - ortho consult - PT consult after cleared for weight bearing by ortho - oxycodone 5mg q4h for pain HTN - cont toprol - pt reports she stopped taking her lasix. will restart CAD - cont plavix and lipitor - pt states she no longer takes ASA or imdur, but unclear if she stopped it or her PCP/cardio stopped it , PCP to f/u in am HLD - cont statin asthma - pt states she no longer takes singulair, but again unclear if she stopped it or her PCP stopped it, PCP to f/u in am GERD - pt states that Dr. Joseph told her to stop taking all her stomach medications and to go on an ice cream diet which she states has helped. seizures as per history - Unknown what medication if any she takes for same DVT PPX - chemoprophylaxis deferred for now, start if LOS >48h FEN - po fluids as tolerated - bmp in am - low sodium diet as tolerated Dispo: Pt currently requires inpatient observation for management of her emergent condition Visit type - Emergency Visit Emergency Visit: Yes ED Registration Date: 10/18/17 Care time: The patient presented to the Emergency Department on the above date and was hospitalized for further evaluation of their emergent condition. - New Patient This patient is new to me today: Yes Date on this admission: 10/19/17 - Critical Care Critical Care patient: No
[2017-10-19] MEDS ORDERED: oxyCODONE HCL 5 MG TABLET ONE (01:57)
[2017-10-19] MEDS: oxyCODONE HCL 5 MG TABLET PO PRN ×3 (02:06→18:11)
[2017-10-19] MEDS ORDERED: morphine CARPU-JECT 10 MG/1 ML DISP.SYRIN IVPUSH ONE ×2 (04:43→05:47)
[2017-10-19 05:18] VITALS: BMI 15.9
[2017-10-19] MEDS: LEVOTHYROXINE NA 50 MCG TABLET (FP) PO SCH (06:24)
[2017-10-19 08:28] LABS: ANION GAP 8 (8-16); BLOOD UREA NITROGEN 15 mg/dL (7-18); CALCIUM 8.2 mg/dL (8.5-10.1); CHLORIDE 105 mmol/L (98-107); CO2 25 mmol/L (21-32); CREATININE 0.6 mg/dL (0.55-1.02); GLUCOSE,RANDOM 79 mg/dL (74-106); MAGNESIUM 2.2 mg/dL (1.8-2.4); PHOSPHOROUS 3.9 mg/dL (2.5-4.9); SODIUM 138 mmol/L (136-145)
[2017-10-19] MEDS: FOLIC ACID 1 MG TABLET (FP) PO SCH (10:16)
[2017-10-19] MEDS: CLOPIDOGREL BISULFATE 75 MG TABLET (FP) PO SCH (10:16)
[2017-10-19] MEDS: ISOSORBIDE MONONITRATE 30 MG TAB.SR.24H (FP) PO SCH (10:16)
[2017-10-19] MEDS: FUROSEMIDE 40 MG TABLET (FP) PO SCH (10:16)
[2017-10-19] MEDS: METOPROLOL SUCCINATE 50 MG TAB.SR.24H (FP) PO SCH (10:16)
[2017-10-19] MEDS: MULTIVITAMINS (DAILY MVI) TABLET (FP) PO SCH (10:16)
--- NOTE | 2017-10-19 13:25 | PN ---
Progress Note (short form) - Note Progress Note: pt seen/ examined chart reviewed c/c pain morphine for pain dvt prophylaxis physical therapy will follow
[2017-10-19] MEDS: morphine CARPU-JECT 10 MG/1 ML DISP.SYRIN IVPUSH PRN ×2 (14:32→22:57)
[2017-10-19] MEDS: FLU VACCINE QUAD 60 MCG/0.5 ML (MDV 17-18) IM ONE ×2 (14:33→14:43)
--- NOTE | 2017-10-19 16:59 | EKG ---
Test Reason : Blood Pressure : / mmHG Vent. Rate : 099 BPM Atrial Rate : 099 BPM P-R Int : 146 ms QRS Dur : 126 ms QT Int : 396 ms P-R-T Axes : 071 -80 043 degrees QTc Int : 508 ms NORMAL SINUS RHYTHM POSSIBLE LEFT ATRIAL ENLARGEMENT RIGHT BUNDLE BRANCH BLOCK LEFT ANTERIOR FASCICULAR BLOCK BIFASCICULAR BLOCK ABNORMAL ECG WHEN COMPARED WITH ECG OF 06-FEB-2017 07:30, NO SIGNIFICANT CHANGE WAS FOUND Confirmed by FRANTZ DSOUZA MD ([id number]) on 10/19/2017 4:59:03 PM Referred By: Confirmed By:FRANTZ DSOUZA MD
[2017-10-19] MEDS: DOCUSATE SODIUM 100 MG CAPSULE (FP) PO SCH (22:25)
[2017-10-19] MEDS: HEPARIN NA (PORCINE) 5,000 UNITS/ML 1ML VIAL SQ SCH (22:25)
[2017-10-19] MEDS: ATORVASTATIN CA 20 MG TABLET (FP) PO SCH (22:26)
[2017-10-20] MEDS: LEVOTHYROXINE NA 50 MCG TABLET (FP) PO SCH (06:33)
[2017-10-20] MEDS: oxyCODONE HCL 5 MG TABLET PO PRN ×3 (07:39→19:48)
[2017-10-20] MEDS: ACETAMINOPHEN 325 MG TABLET (FP) PO PRN ×2 (07:40→15:07)
[2017-10-20] MEDS ORDERED: PT OWN MED DRAWER 7, Y5N ONE (09:53)
[2017-10-20] MEDS: morphine CARPU-JECT 10 MG/1 ML DISP.SYRIN IVPUSH PRN ×3 (10:18→23:09)
[2017-10-20] MEDS: ISOSORBIDE MONONITRATE 30 MG TAB.SR.24H (FP) PO SCH (11:03)
[2017-10-20] MEDS: METOPROLOL SUCCINATE 50 MG TAB.SR.24H (FP) PO SCH (11:03)
[2017-10-20] MEDS: FUROSEMIDE 40 MG TABLET (FP) PO SCH (11:03)
[2017-10-20] MEDS: MULTIVITAMINS (DAILY MVI) TABLET (FP) PO SCH (11:03)
[2017-10-20] MEDS: CLOPIDOGREL BISULFATE 75 MG TABLET (FP) PO SCH (11:03)
[2017-10-20] MEDS: FOLIC ACID 1 MG TABLET (FP) PO SCH (11:04)
[2017-10-20] MEDS: HEPARIN NA (PORCINE) 5,000 UNITS/ML 1ML VIAL SQ SCH ×2 (11:04→21:08)
--- NOTE | 2017-10-20 11:37 | PN ---
Progress Note, Physician History of Present Illness: comfortable pain meds helps but asks for more no distress - Current Medication List Current Medications: Active Medications Acetaminophen (Tylenol -) 650 mg PO Q6H PRN PRN Reason: PAIN Last Admin: 10/20/17 07:40 Dose: 650 mg Atorvastatin Calcium (Lipitor -) 20 mg PO HS [facility] Last Admin: 10/19/17 22:26 Dose: 20 mg Clopidogrel Bisulfate (Plavix -) 75 mg PO DAILY [facility] Last Admin: 10/20/17 11:03 Dose: 75 mg Docusate Sodium (Colace -) 300 mg PO HS [facility] Last Admin: 10/19/17 22:25 Dose: 300 mg Folic Acid (Folic Acid -) 1 mg PO DAILY [facility] Last Admin: 10/20/17 11:04 Dose: 1 mg Furosemide (Lasix -) 40 mg PO DAILY [facility] Last Admin: 10/20/17 11:03 Dose: 40 mg Heparin Sodium (Porcine) (Heparin -) 5,000 unit SQ BID [facility] Last Admin: 10/20/17 11:04 Dose: 5,000 unit Isosorbide Mononitrate (Imdur -) 30 mg PO DAILY [facility] Last Admin: 10/20/17 11:03 Dose: 30 mg Levothyroxine Sodium (Synthroid -) 50 mcg PO DAILY@0700 [facility] Last Admin: 10/20/17 06:33 Dose: 50 mcg Metoprolol Succinate (Toprol Xl -) 50 mg PO DAILY [facility] Last Admin: 10/20/17 11:03 Dose: 50 mg Morphine Sulfate (Morphine Injection -) 2 mg IVPUSH Q6H PRN PRN Reason: PAIN LEVEL 6-10 Last Admin: 10/20/17 10:18 Dose: 2 mg Multivitamins/Minerals/Vitamin C (Tab-A-Vit -) 1 tab PO DAILY [facility] Last Admin: 10/20/17 11:03 Dose: 1 tab Oxycodone HCl (Roxicodone -) 5 mg PO Q4H PRN PRN Reason: Pain 4-10 Last Admin: 10/20/17 07:39 Dose: 5 mg - Objective Vital Signs: Vital Signs Temperature 98.7 F 10/20/17 06:00 Pulse Rate 94 H 10/20/17 06:00 Respiratory Rate 20 10/20/17 06:00 Blood Pressure 163/87 10/20/17 06:00 O2 Sat by Pulse Oximetry (%) 95 10/20/17 04:00 Constitutional: Yes: No Distress, Calm Eyes: Yes: Conjunctiva Clear Neck: Yes: Supple Cardiovascular: Yes: Regular Rate and Rhythm Respiratory: Yes: CTA Bilaterally Gastrointestinal: Yes: Soft Edema: No Neurological: Yes: Alert Psychiatric: Yes: Alert Labs: CBC, BMP 10/19/17 07:00 10/19/17 07:00 Problem List - Problems (1) Hip pain Code(s): M25.559 - PAIN IN UNSPECIFIED HIP Qualifiers: Laterality: left Qualified Code(s): M25.552 - Pain in left hip (2) Arthritis Code(s): M19.90 - UNSPECIFIED OSTEOARTHRITIS, UNSPECIFIED SITE (3) Difficulty in walking Code(s): R26.2 - DIFFICULTY IN WALKING, NOT ELSEWHERE CLASSIFIED (4) Hip osteoarthritis Code(s): M16.9 - OSTEOARTHRITIS OF HIP, UNSPECIFIED Qualifiers: Osteoarthritis type: primary Laterality: left Qualified Code(s): M16.12 - Unilateral primary osteoarthritis, left hip (5) Intractable pain Code(s): R52 - PAIN, UNSPECIFIED Assessment/Plan overall stable pain control physical therapy , await ortho input will follow
--- NOTE | 2017-10-20 14:25 | CONSULT ---
Consult - text type - Consultation Consultation Note: FULL CONSULT DICTATED IMP: SEVERE DJD LEFT HIP IN NEED OF HIP REPLACEMENT PLAN: ANALGESICS, PT-WBAT, PATIENT WILL DECIDE IF SHE WANTS TO GO THROUGHT WITH HIP MREPLACEMENT SOONER OR LATER
--- NOTE | 2017-10-20 16:28 | CONS ---
DATE OF CONSULTATION: 10/20/2017 LOCATION: [facility]. The patient is an 87-year-old female complaining of severe left hip pain, no specific etiology or a fall recently, just increasing pain and inability to walk. Patient did have a right total hip replacement approximately 4 years ago. Now is complaining of increased pain on the left hip. On physical exam, she holds the left hip shortened and internally rotated. She has some significant pain with internal and external rotation, can get it down to about 30 degrees of flexion and some abduction but otherwise markedly painful. Good range of motion in the ankle and toes. Otherwise neurovascularly intact and her right hip seems to be doing very well with good motion, incision well healed. Calves are soft, nontender. X-rays show severe DJD, left hip, but no evidence of any acute fracture or dislocation. The right hip appears to be in acceptable position. IMPRESSION: Severe degenerative joint disease, left hip, with no acute evidence of fracture. Risks, benefits, alternatives discussed with patient in great detail. The patient wants to try conservative measures, i.e., analgesics and physical therapy before relenting to go through a total hip replacement. I believe that this will fail but those are the patient's wishes. We will try that. If not, the patient will need a left total hip replacement in the near future. ALESSIA NELSON M.D. [id number]
[2017-10-20] MEDS: DOCUSATE SODIUM 100 MG CAPSULE (FP) PO SCH (21:08)
[2017-10-20] MEDS: ATORVASTATIN CA 20 MG TABLET (FP) PO SCH (21:08)
[2017-10-21] MEDS: oxyCODONE HCL 5 MG TABLET PO PRN (06:40)
[2017-10-21] MEDS: LEVOTHYROXINE NA 50 MCG TABLET (FP) PO SCH (06:40)
[2017-10-21] MEDS: morphine CARPU-JECT 10 MG/1 ML DISP.SYRIN IVPUSH PRN ×2 (07:52→21:40)
--- NOTE | 2017-10-21 08:32 | PN ---
Progress Note (short form) - Note Progress Note: Ortho Pt seen and examined, c/o left hip pain +ttp, decr rom, nvi a/p PT wbat pain control if no improvement with conservative tx, then will consider THR d/w Dr. Morelos
[2017-10-21] MEDS ORDERED: PT OWN MED DRAWER 7, Y5N ONE (09:44)
[2017-10-21] MEDS: CLOPIDOGREL BISULFATE 75 MG TABLET (FP) PO SCH (09:51)
[2017-10-21] MEDS: ISOSORBIDE MONONITRATE 30 MG TAB.SR.24H (FP) PO SCH (09:51)
[2017-10-21] MEDS: FUROSEMIDE 40 MG TABLET (FP) PO SCH (09:51)
[2017-10-21] MEDS: FOLIC ACID 1 MG TABLET (FP) PO SCH (09:51)
[2017-10-21] MEDS: MULTIVITAMINS (DAILY MVI) TABLET (FP) PO SCH (09:52)
[2017-10-21] MEDS: HEPARIN NA (PORCINE) 5,000 UNITS/ML 1ML VIAL SQ SCH ×2 (09:52→21:40)
[2017-10-21] MEDS: METOPROLOL SUCCINATE 50 MG TAB.SR.24H (FP) PO SCH (09:52)
[2017-10-21] MEDS: ACETAMINOPHEN 325 MG TABLET (FP) PO PRN (09:53)
--- NOTE | 2017-10-21 10:44 | PN ---
Progress Note (short form) - Note Progress Note: Pt seen/ examined c/-c pain ortho consult noted / appreciated Vital Signs Temp 97.2 F L 10/21/17 06:00 Pulse 94 H 10/21/17 06:00 Resp 18 10/21/17 06:00 BP 161/77 10/21/17 06:00 Pulse Ox 95 10/21/17 04:00 Intake & Output 10/20/17 10/20/17 10/21/17 11:59 23:59 11:59 Intake Total 250 200 200 Balance 250 200 200 Intake: Oral 250 200 200 Other: Voiding Method Bedpan Bedpan Bedpan # Unmeasured Voids Void 3 4 Bowel Movement No No # Bowel Movements 0 Active Medications Acetaminophen (Tylenol -) 650 mg PO Q6H PRN PRN Reason: PAIN Last Admin: 10/21/17 09:53 Dose: 650 mg Atorvastatin Calcium (Lipitor -) 20 mg PO [facility] Last Admin: 10/20/17 21:08 Dose: 20 mg Clopidogrel Bisulfate (Plavix -) 75 mg PO DAILY [facility] Last Admin: 10/21/17 09:51 Dose: 75 mg Docusate Sodium (Colace -) 300 mg PO [facility] Last Admin: 10/20/17 21:08 Dose: 300 mg Folic Acid (Folic Acid -) 1 mg PO DAILY [facility] Last Admin: 10/21/17 09:51 Dose: 1 mg Furosemide (Lasix -) 40 mg PO DAILY [facility] Last Admin: 10/21/17 09:51 Dose: 40 mg Heparin Sodium (Porcine) (Heparin -) 5,000 unit SQ BID [facility] Last Admin: 10/21/17 09:52 Dose: 5,000 unit Isosorbide Mononitrate (Imdur -) 30 mg PO DAILY [facility] Last Admin: 10/21/17 09:51 Dose: 30 mg Levothyroxine Sodium (Synthroid -) 50 mcg PO DAILY@0700 [facility] Last Admin: 10/21/17 06:40 Dose: 50 mcg Metoprolol Succinate (Toprol Xl -) 50 mg PO DAILY [facility] Last Admin: 10/21/17 09:52 Dose: 50 mg Morphine Sulfate (Morphine Injection -) 2 mg IVPUSH Q6H PRN PRN Reason: PAIN LEVEL 6-10 Last Admin: 10/21/17 07:52 Dose: 2 mg Multivitamins/Minerals/Vitamin C (Tab-A-Vit -) 1 tab PO DAILY [facility] Last Admin: 10/21/17 09:52 Dose: 1 tab Oxycodone HCl (Roxicodone -) 5 mg PO Q4H PRN PRN Reason: Pain 4-10 Last Admin: 10/21/17 06:40 Dose: 5 mg CBC, BMP 10/19/17 07:00 10/19/17 07:00 Physical Exam. Constitutional: Yes: No Distress. Eyes: Yes: Conjunctiva Clear Neck: Yes: Supple Cardiovascular: Yes: Regular Rate and Rhythm Respiratory: Yes: CTA Bilaterally Gastrointestinal: Yes: Soft Edema: No Neurological: Yes: Alert Psychiatric: Yes: Alert Assessment/Plan overall stable except pain issues pain control physical therapy , pt thinking about surgery will follow Problem List - Problems (1) Hip pain Code(s): M25.559 - PAIN IN UNSPECIFIED HIP Qualifiers: Laterality: left Qualified Code(s): M25.552 - Pain in left hip (2) Arthritis Code(s): M19.90 - UNSPECIFIED OSTEOARTHRITIS, UNSPECIFIED SITE (3) Difficulty in walking Code(s): R26.2 - DIFFICULTY IN WALKING, NOT ELSEWHERE CLASSIFIED (4) Hip osteoarthritis Code(s): M16.9 - OSTEOARTHRITIS OF HIP, UNSPECIFIED Qualifiers: Osteoarthritis type: primary Laterality: left Qualified Code(s): M16.12 - Unilateral primary osteoarthritis, left hip (5) Intractable pain Code(s): R52 - PAIN, UNSPECIFIED
[2017-10-21] MEDS: DOCUSATE SODIUM 100 MG CAPSULE (FP) PO SCH (21:40)
[2017-10-21] MEDS: ATORVASTATIN CA 20 MG TABLET (FP) PO SCH (21:40)
[2017-10-22] MEDS: morphine CARPU-JECT 10 MG/1 ML DISP.SYRIN IVPUSH PRN (06:14)
[2017-10-22] MEDS: LEVOTHYROXINE NA 50 MCG TABLET (FP) PO SCH (06:17)
--- NOTE | 2017-10-22 08:35 | PN ---
Progress Note (short form) - Note Progress Note: pt seen/ examined agreeing for surgery denies cp/sob. no abd pain. Vital Signs Temp 97.7 F 10/22/17 06:00 Pulse 77 10/22/17 06:00 Resp 18 10/22/17 06:00 BP 146/73 10/22/17 06:00 Pulse Ox 95 10/22/17 04:00 Intake & Output 10/21/17 10/21/17 10/22/17 11:59 23:59 11:59 Intake Total 200 450 Balance 200 450 Intake: Oral 200 450 Other: Voiding Method Bedpan Bedpan Bedpan # Unmeasured Voids Void 4 1 3 Bowel Movement No No No # Bowel Movements 0 Active Medications Acetaminophen (Tylenol -) 650 mg PO Q6H PRN PRN Reason: PAIN Last Admin: 10/21/17 09:53 Dose: 650 mg Atorvastatin Calcium (Lipitor -) 20 mg PO [facility] Last Admin: 10/21/17 21:40 Dose: 20 mg Clopidogrel Bisulfate (Plavix -) 75 mg PO DAILY [facility] Last Admin: 10/21/17 09:51 Dose: 75 mg Docusate Sodium (Colace -) 300 mg PO [facility] Last Admin: 10/21/17 21:40 Dose: 300 mg Folic Acid (Folic Acid -) 1 mg PO DAILY [facility] Last Admin: 10/21/17 09:51 Dose: 1 mg Furosemide (Lasix -) 40 mg PO DAILY [facility] Last Admin: 10/21/17 09:51 Dose: 40 mg Heparin Sodium (Porcine) (Heparin -) 5,000 unit SQ BID [facility] Last Admin: 10/21/17 21:40 Dose: 5,000 unit Isosorbide Mononitrate (Imdur -) 30 mg PO DAILY [facility] Last Admin: 10/21/17 09:51 Dose: 30 mg Levothyroxine Sodium (Synthroid -) 50 mcg PO DAILY@0700 [facility] Last Admin: 10/22/17 06:17 Dose: 50 mcg Metoprolol Succinate (Toprol Xl -) 50 mg PO DAILY [facility] Last Admin: 10/21/17 09:52 Dose: 50 mg Morphine Sulfate (Morphine Injection -) 2 mg IVPUSH Q6H PRN PRN Reason: PAIN LEVEL 6-10 Last Admin: 10/22/17 06:14 Dose: 2 mg Multivitamins/Minerals/Vitamin C (Tab-A-Vit -) 1 tab PO DAILY [facility] Last Admin: 10/21/17 09:52 Dose: 1 tab CBC, BMP 10/19/17 07:00 10/19/17 07:00 Physical Exam. Constitutional: Yes: awake/ comfortable. Eyes: Yes: Conjunctiva Clear Neck: Yes: Supple Cardiovascular: Yes: Regular Rate and Rhythm Respiratory: Yes: CTA Bilaterally Gastrointestinal: Yes: Soft/ non tender Edema: No Neurological: Yes: Alert Psychiatric: Yes: Alert Assessment/Plan overall stable except pain issues pain control physical therapy , agree for surgery will inform ortho hold plavix discussed with nursing staff will follow Problem List - Problems (1) Hip pain Code(s): M25.559 - PAIN IN UNSPECIFIED HIP Qualifiers: Laterality: left Qualified Code(s): M25.552 - Pain in left hip (2) Arthritis Code(s): M19.90 - UNSPECIFIED OSTEOARTHRITIS, UNSPECIFIED SITE (3) Difficulty in walking Code(s): R26.2 - DIFFICULTY IN WALKING, NOT ELSEWHERE CLASSIFIED (4) Hip osteoarthritis Code(s): M16.9 - OSTEOARTHRITIS OF HIP, UNSPECIFIED Qualifiers: Osteoarthritis type: primary Laterality: left Qualified Code(s): M16.12 - Unilateral primary osteoarthritis, left hip (5) Intractable pain Code(s): R52 - PAIN, UNSPECIFIED
[2017-10-22] MEDS: MULTIVITAMINS (DAILY MVI) TABLET (FP) PO SCH (09:42)
[2017-10-22] MEDS: ISOSORBIDE MONONITRATE 30 MG TAB.SR.24H (FP) PO SCH (09:42)
[2017-10-22] MEDS: FUROSEMIDE 40 MG TABLET (FP) PO SCH (09:42)
[2017-10-22] MEDS: FOLIC ACID 1 MG TABLET (FP) PO SCH (09:43)
[2017-10-22] MEDS: METOPROLOL SUCCINATE 50 MG TAB.SR.24H (FP) PO SCH (09:43)
[2017-10-22] MEDS: HEPARIN NA (PORCINE) 5,000 UNITS/ML 1ML VIAL SQ SCH ×2 (09:43→21:26)
[2017-10-22] MEDS: DOCUSATE SODIUM 100 MG CAPSULE (FP) PO SCH (21:26)
[2017-10-22] MEDS: ATORVASTATIN CA 20 MG TABLET (FP) PO SCH (21:26)
[2017-10-23] MEDS: LEVOTHYROXINE NA 50 MCG TABLET (FP) PO SCH (06:17)
[2017-10-23] MEDS: ACETAMINOPHEN 325 MG TABLET (FP) PO PRN (06:34)
--- NOTE | 2017-10-23 08:20 | PN ---
Progress Note (short form) - Note Progress Note: patient wants surgery. We will arrange her transfer to [facility] to the [facility] [place] for a left GUERLINE
[2017-10-23] MEDS: morphine CARPU-JECT 10 MG/1 ML DISP.SYRIN IVPUSH PRN ×3 (08:31→22:31)
--- NOTE | 2017-10-23 09:32 | PN ---
Progress Note (short form) - Note Progress Note: c/c-pain agree for surgery ortho f/u noted pt to be transferred to [facility] Vital Signs Temp 97.8 F 10/23/17 06:00 Pulse 83 10/23/17 06:00 Resp 18 10/23/17 06:00 BP 164/102 10/23/17 06:00 Pulse Ox 98 10/22/17 21:00 Intake & Output 10/22/17 10/22/17 10/23/17 11:59 23:59 11:59 Intake Total 300 600 Balance 300 600 Intake: Oral 300 600 Other: Voiding Method Bedpan Bedpan Bedpan # Unmeasured Voids Void 3 1 1 Bowel Movement No No Active Medications Acetaminophen (Tylenol -) 650 mg PO Q6H PRN PRN Reason: PAIN Last Admin: 10/23/17 06:34 Dose: 650 mg Atorvastatin Calcium (Lipitor -) 20 mg PO HS [facility] Last Admin: 10/22/17 21:26 Dose: 20 mg Docusate Sodium (Colace -) 300 mg PO [facility] Last Admin: 10/22/17 21:26 Dose: 300 mg Folic Acid (Folic Acid -) 1 mg PO DAILY [facility] Last Admin: 10/22/17 09:43 Dose: 1 mg Furosemide (Lasix -) 40 mg PO DAILY [facility] Last Admin: 10/22/17 09:42 Dose: 40 mg Heparin Sodium (Porcine) (Heparin -) 5,000 unit SQ BID [facility] Last Admin: 10/22/17 21:26 Dose: 5,000 unit Isosorbide Mononitrate (Imdur -) 30 mg PO DAILY [facility] Last Admin: 10/22/17 09:42 Dose: 30 mg Levothyroxine Sodium (Synthroid -) 50 mcg PO DAILY@0700 [facility] Last Admin: 10/23/17 06:17 Dose: 50 mcg Metoprolol Succinate (Toprol Xl -) 50 mg PO DAILY [facility] Last Admin: 10/22/17 09:43 Dose: 50 mg Morphine Sulfate (Morphine Injection -) 2 mg IVPUSH Q3H PRN PRN Reason: PAIN Last Admin: 10/23/17 08:31 Dose: 2 mg Multivitamins/Minerals/Vitamin C (Tab-A-Vit -) 1 tab PO DAILY [facility] Last Admin: 10/22/17 09:42 Dose: 1 tab CBC, BMP 10/19/17 07:00 01/13/18 07:[address] - Pending.-report Physical Exam. Constitutional: Yes: awake/ comfortable. Eyes: Yes: Conjunctiva Clear Neck: Yes: Supple Cardiovascular: Yes: Regular Rate and Rhythm Respiratory: Yes: CTA Bilaterally Gastrointestinal: Yes: Soft/ non tender Edema: No Neurological: Yes: Alert Psychiatric: Yes: Alert Assessment/Plan overall stable except pain issues pain control physical therapy , agree for surgery plavix- on hold discussed with nursing staff will follow Problem List - Problems (1) Hip pain Code(s): M25.559 - PAIN IN UNSPECIFIED HIP Qualifiers: Laterality: left Qualified Code(s): M25.552 - Pain in left hip (2) Arthritis Code(s): M19.90 - UNSPECIFIED OSTEOARTHRITIS, UNSPECIFIED SITE (3) Difficulty in walking Code(s): R26.2 - DIFFICULTY IN WALKING, NOT ELSEWHERE CLASSIFIED (4) Hip osteoarthritis Code(s): M16.9 - OSTEOARTHRITIS OF HIP, UNSPECIFIED Qualifiers: Osteoarthritis type: primary Laterality: left Qualified Code(s): M16.12 - Unilateral primary osteoarthritis, left hip (5) Intractable pain Code(s): R52 - PAIN, UNSPECIFIED
[2017-10-23] MEDS: MULTIVITAMINS (DAILY MVI) TABLET (FP) PO SCH (09:39)
[2017-10-23] MEDS: FUROSEMIDE 40 MG TABLET (FP) PO SCH (09:39)
[2017-10-23] MEDS: METOPROLOL SUCCINATE 50 MG TAB.SR.24H (FP) PO SCH (09:39)
[2017-10-23] MEDS: FOLIC ACID 1 MG TABLET (FP) PO SCH (09:39)
[2017-10-23] MEDS: ISOSORBIDE MONONITRATE 30 MG TAB.SR.24H (FP) PO SCH (09:39)
[2017-10-23] MEDS: HEPARIN NA (PORCINE) 5,000 UNITS/ML 1ML VIAL SQ SCH ×2 (09:39→21:05)
[2017-10-23] MEDS ORDERED: PT OWN MED DRAWER 7, Y5N ONE (21:00)
[2017-10-23] MEDS: ATORVASTATIN CA 20 MG TABLET (FP) PO SCH (21:05)
[2017-10-23] MEDS: DOCUSATE SODIUM 100 MG CAPSULE (FP) PO SCH (21:05)
[2017-10-24] MEDS: morphine CARPU-JECT 10 MG/1 ML DISP.SYRIN IVPUSH PRN ×4 (03:10→21:57)
[2017-10-24] MEDS: LEVOTHYROXINE NA 50 MCG TABLET (FP) PO SCH (06:30)
--- NOTE | 2017-10-24 07:58 | PN ---
Progress Note (short form) - Note Progress Note: Ortho Pt seen and examined, c/o left hip pain +ttp, decr rom, nvi a/p OR tomorrow for left denice thr NPO after midnight d/w Dr. Morelos
[2017-10-24 08:49] LABS: ACTIVATED PTT 30.3 SECONDS (24.0-38.9)
[2017-10-24 08:51] LABS: HEMATOCRIT 31.3 % (32.4-45.2); HEMOGLOBIN 10.9 GM/dl (10.7-15.3); MCH 31.6 pg (25.7-33.7); MCHC 34.7 g/dl (32.0-36.0); MEAN PLT VOLUME 6.7 fl (7.5-11.1); PLATELET COUNT 671 K/MM3 (134-434); RBC 3.44 M/mm3 (3.60-5.2); WHITE BLOOD COUNT 7.6 K/mm3 (4.0-10.8)
[2017-10-24 08:54] LABS: INR 1.06 (0.82-1.09); PROTHROMBIN TIME (PATIENT) 11.8 SEC (10.2-13.0)
[2017-10-24 08:55] LABS: ALBUMIN 3.1 g/dl (3.5-5.0); ALK PHOS 71 U/L (32-92); ANION GAP 10 (8-16); BLOOD UREA NITROGEN 19 mg/dl (7-18); CALCIUM 9.2 mg/dl (8.4-10.2); CHLORIDE 102 mmol/L (98-107); CO2 26 mmol/L (22-28); CREATININE 0.6 mg/dl (0.6-1.3); POTASSIUM 4.2 mmol/L (3.5-5.1); SGOT/AST 15 U/L (10-42); SGPT/ALT 8 U/L (10-40); SODIUM 138 mmol/L (136-145); TOT PROT 6.7 g/dl (6.4-8.3)
[2017-10-24] MEDS: FUROSEMIDE 40 MG TABLET (FP) PO SCH (09:26)
[2017-10-24] MEDS: FOLIC ACID 1 MG TABLET (FP) PO SCH (09:27)
[2017-10-24] MEDS: METOPROLOL SUCCINATE 50 MG TAB.SR.24H (FP) PO SCH (09:27)
[2017-10-24] MEDS: MULTIVITAMINS (DAILY MVI) TABLET (FP) PO SCH (09:27)
[2017-10-24] MEDS: ISOSORBIDE MONONITRATE 30 MG TAB.SR.24H (FP) PO SCH (09:27)
[2017-10-24 10:24] LABS: BILIRUBIN,TOTAL 0.3 mg/dl (0.2-1.0)
[2017-10-24] MEDS: ACETAMINOPHEN 325 MG TABLET (FP) PO PRN (11:53)
[2017-10-24 12:32] LABS: GLUCOSE,RANDOM 87 mg/dL (74-106)
[2017-10-24] MEDS: DOCUSATE SODIUM 100 MG CAPSULE (FP) PO SCH (21:41)
[2017-10-24] MEDS: ATORVASTATIN CA 20 MG TABLET (FP) PO SCH (21:42)
[2017-10-25] MEDS: morphine CARPU-JECT 10 MG/1 ML DISP.SYRIN IVPUSH PRN ×3 (01:12→15:32)
[2017-10-25] MEDS: LEVOTHYROXINE NA 50 MCG TABLET (FP) PO SCH (07:30)
[2017-10-25] MEDS: ISOSORBIDE MONONITRATE 30 MG TAB.SR.24H (FP) PO SCH (10:02)
[2017-10-25] MEDS: FUROSEMIDE 40 MG TABLET (FP) PO SCH (10:02)
[2017-10-25] MEDS: FOLIC ACID 1 MG TABLET (FP) PO SCH (10:02)
[2017-10-25] MEDS: MULTIVITAMINS (DAILY MVI) TABLET (FP) PO SCH (10:02)
[2017-10-25] MEDS: METOPROLOL SUCCINATE 50 MG TAB.SR.24H (FP) PO SCH (10:02)
[2017-10-25] MEDS ORDERED: ceFAZolin SODIUM 1 GM VIAL ONE (10:46)
[2017-10-25] MEDS ORDERED: VANCOMYCIN 1,000 MG VIAL (RESTRICTED TO ID ONLY) ONE (10:46)
[2017-10-25] MEDS ORDERED: TRANEXAMIC ACID 1000 MG/10 ML VIAL IVPUSH ONE (11:43)
[2017-10-25] MEDS ORDERED: CEFAZOLIN 2 GM in DEXTROSE 5%-WATER - 50 ML IVPB ONE (11:43)
[2017-10-25] MEDS ORDERED: fentaNYL CITRATE 250 MCG/5 ML VIAL ONE ×2 (11:57→12:53)
[2017-10-25] MEDS ORDERED: ETOMIDATE 20 MG/10 ML AMPUL IVPUSH ONE ×2 (11:57→11:58)
[2017-10-25] MEDS ORDERED: ROCURONIUM BROMIDE 50 MG/5 ML VIAL ONE (11:58)
[2017-10-25] MEDS ORDERED: ePHEDrine SULFATE 50 MG/1 ML AMPULE ONE (12:04)
[2017-10-25] MEDS ORDERED: VANCOMYCIN 1,000 MG VIAL (RESTRICTED TO ID ONLY) IVPB ONE (12:56)
[2017-10-25] MEDS ORDERED: NEOSTIGMINE METHYLSULFATE 0.5 MG/ML - 10 ML MDV ONE (13:16)
[2017-10-25] MEDS ORDERED: GLYCOPYRROLATE 0.2 MG/1 ML VIAL ONE (13:17)
[2017-10-25] MEDS ORDERED: LABETALOL HCL 5 MG/1 ML (100MG/20 ML VIAL) ONE (13:28)
[2017-10-25] MEDS ORDERED: PROPOFOL 20 ML ONE (13:34)
[2017-10-25] MEDS ORDERED: PROMETHAZINE HCL 25 MG/1 ML VIAL IVPUSH PRN (14:02)
[2017-10-25] MEDS ORDERED: LABETALOL HCL 5 MG/1 ML (100MG/20 ML VIAL) IVPUSH ONE (14:03)
[2017-10-25] MEDS: ONDANSETRON 4 MG/2 ML VIAL IVPUSH PRN (14:10)
[2017-10-25] MEDS: LACTATED RINGERS SOLUTION 1,000 ML IV SCH (15:33)
[2017-10-25] MEDS: CEFAZOLIN 1 GM/D5W 1 GM/50 ML BAG IVPB SCH (20:55)
[2017-10-25] MEDS: ATORVASTATIN CA 20 MG TABLET (FP) PO SCH (22:04)
[2017-10-25] MEDS: ACETAMINOPHEN 325 MG TABLET (FP) PO PRN (22:04)
[2017-10-25] MEDS: DOCUSATE SODIUM 100 MG CAPSULE (FP) PO SCH (22:04)
[2017-10-26] MEDS: morphine CARPU-JECT 10 MG/1 ML DISP.SYRIN IVPUSH PRN ×3 (00:03→07:58)
[2017-10-26] MEDS ORDERED: morphine CARPU-JECT 2 MG/1 ML DISP.SYRIN IVPUSH ONE (01:50)
[2017-10-26] MEDS: ACETAMINOPHEN 325 MG TABLET (FP) PO PRN (03:31)
[2017-10-26] MEDS: CEFAZOLIN 1 GM/D5W 1 GM/50 ML BAG IVPB SCH (03:31)
[2017-10-26] MEDS: LEVOTHYROXINE NA 50 MCG TABLET (FP) PO SCH (06:45)
[2017-10-26] MEDS: ASPIRIN 325 MG TABLET PO SCH (07:58)
--- NOTE | 2017-10-26 08:00 | OP ---
DATE OF OPERATION: 10/25/2017 PREOPERATIVE DIAGNOSIS: Degenerative joint disease, left hip. POSTOPERATIVE DIAGNOSIS: Degenerative joint disease, left hip. PROCEDURE: Left total hip replacement with robotic assisted navigation (Makoplasty). SURGEON: Dr. Shaggy Morelos POWER DISTRIBUTOR: FRANKIE Cleary ANESTHESIA: General. CLOSURE: A 52 PSL Press-Fit acetabulum with 2 screws, a standard MDM liner, and a No. 4 Accolade 2 Press-fit femoral stem, No. 1 Vicryl for fascia, 0 and 2-0 subcutaneous, 3-0 V-Lock for skin with skin glue, 4-0 undyed Vicryl for pin sites. ESTIMATED BLOOD LOSS: Less than 100 mL. COMPLICATIONS: None. CONDITION: To recovery room in stable condition. DESCRIPTION OF OPERATIVE PROCEDURE: The patient was taken to the operating room on October 25, 2017. General anesthesia with endotracheal intubation was administered by the anesthesiologist. IV Kefzol was administered prophylactically prior to the case. The patient was placed in the lateral decubitus position with all prominences well-padded. The left lower extremity was prepped in the usual sterile fashion. Three pins were placed in the iliac wing in between the two tables through 3 stab incisions. Through these pins was fashioned the navigation array. The posterior approach was utilized to gain access to the hip. A 10-cm curved longitudinal incision over the posterolateral aspect of the hip was incised. Hemostasis was achieved with Bovie cautery. Sharp dissection was carried down to the level of the fascia, which was opened the entire length of the incision spreading the gluteus keagan fibers in the direction of their origin. A Charnley retractor was placed in this layer, and care was taken not to repel the sciatic nerve. Short external rotators were detached after insertion and greater trochanter peeled off the capsule. A capsulotomy was then performed posteriorly exposing the femoral head. A checkpoint was malleted into the greater trochanter. The femur was registered in the checkpoint in the greater trochanter and a point on the inferior pole of the patella to be used for leg length and offset measurements. The hip was then dislocated. The neck was then osteotomized at the appropriate level as directed by the navigation device. Anterior posterior retractors were applied. The labrum was excised circumferentially. An acetabular checkpoint was malleted into place. The hip was then registered with multiple places in and around the acetabulum, and excellent registration was obtained. Confirmation of this was performed by "popping the bubbles". The robot was then brought in the field and was registered. The acetabulum was then reamed as per our preoperative plan down to the appropriate depth until bleeding bone was obtained. The PCL cup was then malleted down into place achieving excellent fixation and rigidity. Two screws were placed superiorly and posteriorly to give adjuvant fixation. These were depth gaged and screwed with the appropriate length screws. An MDM liner was then cold welded to the acetabulum. Next, our attention was directed to the femur. Box chisel and canal finder and serial broaches were used until a No. 4 stem achieved excellent fit and fill. This was also directed by the navigation of the appropriate size. A trial reduction with a standard MDM head achieved equal limb length to the contralateral side was stable to marked flexion. At 90 degrees of flexion, was stable to marked adduction and internal rotation. Had a positive hang test, negative toe scoping, and good stability in extension with external rotation. Trial component was removed. The hip was pulse antibiotic irrigated. The real component was then malleted into place. The MDM was then cold welded to the trunnion, and the hip was reduced. Range of motion, stability, and limb length was described earlier. The hip was post antibiotic irrigated. The checkpoints were all removed as were the pins in the acetabulum. Vancomycin powder was placed into the hip joint. Capsule was closed with 0 Vicryl. No. 1 Vicryl was used to close the fascia, 0 and 2-0 for subcutaneous, and V-Lock for skin with skin glue and 4-0 undyed Vicryl for pin sites. Sterile pressure dressing was applied. The patient was placed in the supine position. Bilateral SCDs and an abduction pillow were applied. Postoperative x-ray revealed good position of the components. The patient was transferred to the recovery room in stable condition. ESTIMATED BLOOD LOSS: Less than 100 mL. Bing [id number]
[2017-10-26 08:03] LABS: HEMATOCRIT 29.8 % (32.4-45.2); HEMOGLOBIN 9.7 GM/dl (10.7-15.3); MCH 29.7 pg (25.7-33.7); MCHC 32.5 g/dl (32.0-36.0); MEAN CELL VOLUME 91.4 fl (80-96); MEAN PLT VOLUME 6.6 fl (7.5-11.1); PLATELET COUNT 545 K/MM3 (134-434); RBC 3.26 M/mm3 (3.60-5.2); WHITE BLOOD COUNT 7.7 K/mm3 (4.0-10.8)
[2017-10-26] MEDS ORDERED: morphine SULFATE 4 MG/ML VIAL IV PRN (08:59)
[2017-10-26] MEDS: ISOSORBIDE MONONITRATE 30 MG TAB.SR.24H (FP) PO SCH (09:39)
[2017-10-26] MEDS: FOLIC ACID 1 MG TABLET (FP) PO SCH (09:39)
[2017-10-26] MEDS: MULTIVITAMINS (DAILY MVI) TABLET (FP) PO SCH (09:39)
[2017-10-26] MEDS: FUROSEMIDE 40 MG TABLET (FP) PO SCH (09:39)
[2017-10-26] MEDS: METOPROLOL SUCCINATE 50 MG TAB.SR.24H (FP) PO SCH (09:39)
--- NOTE | 2017-10-26 13:49 | PN ---
Physical Exam: SUBJECTIVE: Patient seen and examined. Pain is controlled with IV morphine. She would like to try to get out of bed. OBJECTIVE: Vital Signs Period Temp Pulse Resp BP Sys/[place] Pulse Ox Last 24 Hr 97.7 F-99.2 F 72-106 14-19 105-185/53-90 94-100 GENERAL: The patient is awake, alert, and fully oriented, in no acute distress. HEAD: Normal with no signs of trauma. EYES: PERRL, extraocular movements intact, sclera anicteric, conjunctiva clear. No ptosis. ENT: Ears normal, nares patent, oropharynx clear without exudates, moist mucous membranes. NECK: Trachea midline, full range of motion, supple. LUNGS: Breath sounds equal, clear to auscultation bilaterally, no wheezes, no crackles, no accessory muscle use. HEART: Regular rate and rhythm, S1, S2 without murmur, rub or gallop. ABDOMEN: Soft, nontender, nondistended, normoactive bowel sounds, no guarding, no rebound, no hepatosplenomegaly, no masses. EXTREMITIES: 2+ pulses, warm, well-perfused, no edema. Left hip distal dressing 80% saturated with blood, no leakage around the dressing, no tenderness to palpation. NEUROLOGICAL: Cranial nerves II through XII grossly intact. Normal speech, gait not observed. PSYCH: Normal mood, normal affect. SKIN: Warm, dry, normal turgor, no rashes or lesions noted. Laboratory Results - last 24 hr 10/26/17 07:58 WBC 7.7 RBC 3.26 L Hgb 9.7 L D Hct 29.8 L MCV 91.4 MCH 29.7 MCHC 32.5 RDW 16.0 H Plt Count 545 H MPV 6.6 L Active Medications Generic Name Dose Route Start Last Admin Trade Name Freq PRN Reason Stop Dose Admin Acetaminophen 650 mg 10/19/17 01:41 10/26/17 03:31 Tylenol - PO 650 mg Q6H PRN Administration PAIN Aspirin 325 mg 10/26/17 08:00 10/26/17 07:58 Asa - PO 325 mg DAILY@0800 [facility] Administration Atorvastatin Calcium 20 mg 10/19/17 22:00 10/25/17 22:04 Lipitor - PO 20 mg HS [facility] Administration Docusate Sodium 300 mg 10/19/17 22:00 10/25/17 22:04 Colace - PO 300 mg HS [facility] Administration Fentanyl 50 mcg 10/25/17 14:16 Sublimaze Injection - IVPUSH Q5M PRN PAIN-PACU ORDER X 4 DOSES ONLY Folic Acid 1 mg 10/19/17 10:00 10/26/17 09:39 Folic Acid - PO 1 mg DAILY [facility] Administration Furosemide 40 mg 10/19/17 10:00 10/26/17 09:39 Lasix - PO 40 mg DAILY [facility] Administration Lactated Ringer's 1,000 mls @ 75 mls/hr 10/25/17 14:15 10/25/17 15:33 Lactated Ringers Solution IV 75 mls/hr ASDIR [facility] Administration Isosorbide Mononitrate 30 mg 10/19/17 10:00 10/26/17 09:39 Imdur - PO 30 mg DAILY [facility] Administration Levothyroxine Sodium 50 mcg 10/19/17 07:00 10/26/17 06:45 Synthroid - PO 50 mcg DAILY@0700 [facility] Administration Metoprolol Succinate 50 mg 10/19/17 10:00 10/26/17 09:39 Toprol Xl - PO 50 mg DAILY [facility] Administration Morphine Sulfate 4 mg 10/26/17 08:59 10/26/17 11:45 Morphine Sulfate IV 10/29/17 08:58 4 mg Q4H PRN Administration Multivitamins/Minerals/Vitamin C 1 tab 10/19/17 10:00 10/26/17 09:39 Tab-A-Vit - PO 1 tab DAILY [facility] Administration Ondansetron HCl 4 mg 10/25/17 14:02 10/25/17 14:10 Zofran Injection IVPUSH 3.5 mg Q6H PRN Administration NAUSEA AND/OR VOMITING Promethazine HCl 12.5 mg 10/25/17 14:02 Phenergan Injection - IVPUSH Q6H PRN NAUSEA-FOR RESCUE AFTER 15 MIN ASSESSMENT/PLAN: 87yF with HTN, HLD, CAD, asthma, diverticulitis, chronic biliary dilatation, colitis, hyponatremia, OA, and seizures presented to the ED s/p fall with left hip pain. POD #1 s/p left hip JONY for severe DJD. 1. Left hip pain -S/p JONY, POD #1 -Transition from morphine to oral oxycodone-APAP -ASA for DVT ppx per ortho -PT 2. HTN -At goal -Continue Toprol, Lasix 3. CAD -Holding Plavix -Continue Imdur -ASA 4. F/E/N: Severe malnutrition in the setting of chronic illness (BMI 15.9) -Supplemental ensure -Encourage adequate PO intake -Monitor electrolytes, body weight DISPO: Continue inpatient management. Visit type - Emergency Visit Emergency Visit: Yes ED Registration Date: 10/19/17 Care time: The patient presented to the Emergency Department on the above date and was hospitalized for further evaluation of their emergent condition. - New Patient This patient is new to me today: Yes Date on this admission: 10/26/17 - Critical Care Critical Care patient: No - Discharge Referral Referred to [facility] No
[2017-10-26] MEDS ORDERED: morphine CARPU-JECT 4 MG/1 ML DISP.SYRIN IVPUSH ONE (14:37)
[2017-10-26] MEDS ORDERED: morphine SULFATE 4 MG/ML VIAL ONE (14:54)
[2017-10-26] MEDS ORDERED: morphine SULFATE 4 MG/ML VIAL IV ONE (15:00)
[2017-10-26] MEDS: LACTATED RINGERS SOLUTION 1,000 ML IV SCH (15:20)
[2017-10-26] MEDS: ATORVASTATIN CA 20 MG TABLET (FP) PO SCH (22:26)
[2017-10-26] MEDS: DOCUSATE SODIUM 100 MG CAPSULE (FP) PO SCH (22:26)
[2017-10-27] MEDS: LEVOTHYROXINE NA 50 MCG TABLET (FP) PO SCH (06:45)
[2017-10-27] MEDS: ASPIRIN 325 MG TABLET PO SCH (07:49)
[2017-10-27 08:47] LABS: HEMATOCRIT 23.4 % (32.4-45.2); HEMOGLOBIN 7.9 GM/dl (10.7-15.3); MCH 30.4 pg (25.7-33.7); MCHC 33.6 g/dl (32.0-36.0); MEAN CELL VOLUME 90.6 fl (80-96); MEAN PLT VOLUME 7.3 fl (7.5-11.1); PLATELET COUNT 418 K/MM3 (134-434); RBC 2.58 M/mm3 (3.60-5.2); WHITE BLOOD COUNT 13.1 K/mm3 (4.0-10.8)
[2017-10-27] MEDS: FUROSEMIDE 40 MG TABLET (FP) PO SCH (09:19)
[2017-10-27] MEDS: FOLIC ACID 1 MG TABLET (FP) PO SCH (09:19)
[2017-10-27] MEDS: ISOSORBIDE MONONITRATE 30 MG TAB.SR.24H (FP) PO SCH (09:19)
[2017-10-27] MEDS: MULTIVITAMINS (DAILY MVI) TABLET (FP) PO SCH (09:19)
[2017-10-27] MEDS: METOPROLOL SUCCINATE 50 MG TAB.SR.24H (FP) PO SCH (09:20)
--- NOTE | 2017-10-27 10:40 | PN ---
Physical Exam: SUBJECTIVE: Patient seen and examined. Complaining of "cramping" hip pain. OBJECTIVE: POD #2 s/p THR. Discussed with Dr. Madera and will ask PT to stretch patient and teach her stretching exercises. Will remove Aquacel and re- dress with dry, sterile dressing as it is saturated. WBC and H/H within expected post-op range. Vital Signs Period Temp Pulse Resp BP Sys/Montgomery Pulse Ox Last 24 Hr 98.1 F-99.4 F 97-113 18-20 111-152/44-63 94-96 GENERAL: The patient is awake, alert, and fully oriented, in no acute distress. HEAD: Normal with no signs of trauma. EYES: PERRL, extraocular movements intact, sclera anicteric, conjunctiva clear. No ptosis. ENT: Ears normal, nares patent, oropharynx clear without exudates, moist mucous membranes. NECK: Trachea midline, full range of motion, supple. LUNGS: Breath sounds equal, clear to auscultation bilaterally, no wheezes, no crackles, no accessory muscle use. HEART: Regular rate and rhythm, S1, S2 without murmur, rub or gallop. ABDOMEN: Soft, nontender, nondistended, normoactive bowel sounds, no guarding, no rebound, no hepatosplenomegaly, no masses. EXTREMITIES: 2+ pulses, warm, well-perfused, no edema. Left hip distal dressing 100% saturated with blood, no leakage around the dressing, no tenderness to palpation. NEUROLOGICAL: Cranial nerves II through XII grossly intact. Normal speech, gait not observed. PSYCH: Normal mood, normal affect. SKIN: Warm, dry, normal turgor, no rashes or lesions noted. Laboratory Results - last 24 hr 10/27/17 10/27/17 07:00 07:00 WBC Cancelled 13.1 H D Corrected WBC (auto) Cancelled RBC Cancelled 2.58 L D Hgb Cancelled 7.9 L D Hct Cancelled 23.4 L D MCV Cancelled 90.6 MCH Cancelled 30.4 MCHC Cancelled 33.6 RDW Cancelled 16.0 H Plt Count Cancelled 418 MPV Cancelled 7.3 L Neutrophils % Cancelled Lymphocytes % Cancelled Monocytes % Cancelled Eosinophils % Cancelled Basophils % Cancelled Nucleated RBC % Cancelled Platelet Estimate Cancelled Platelet Comment Cancelled Active Medications Generic Name Dose Route Start Last Admin Trade Name Freq PRN Reason Stop Dose Admin Acetaminophen 650 mg 10/19/17 01:41 10/26/17 03:31 Tylenol - PO 650 mg Q6H PRN Administration PAIN Aspirin 325 mg 10/26/17 08:00 10/27/17 07:49 Asa - PO 325 mg DAILY@0800 DAVID Administration Atorvastatin Calcium 20 mg 10/19/17 22:00 10/26/17 22:26 Lipitor - PO 20 mg HS DAVID Administration Docusate Sodium 300 mg 10/19/17 22:00 10/26/17 22:26 Colace - PO 300 mg HS DAVID Administration Fentanyl 50 mcg 10/25/17 14:16 Sublimaze Injection - IVPUSH Q5M PRN PAIN-PACU ORDER X 4 DOSES ONLY Folic Acid 1 mg 10/19/17 10:00 10/27/17 09:19 Folic Acid - PO 1 mg DAILY DAVID Administration Furosemide 40 mg 10/19/17 10:00 10/27/17 09:19 Lasix - PO 40 mg DAILY DAVID Administration Isosorbide Mononitrate 30 mg 10/19/17 10:00 10/27/17 09:19 Imdur - PO 30 mg DAILY DAVID Administration Levothyroxine Sodium 50 mcg 10/19/17 07:00 10/27/17 06:45 Synthroid - PO 50 mcg DAILY@0700 [facility] Administration Metoprolol Succinate 50 mg 10/19/17 10:00 10/27/17 09:20 Toprol Xl - PO 50 mg DAILY DAVID Administration Morphine Sulfate 2 mg 10/27/17 10:35 Morphine Injection - IM 10/27/17 10:36 ONCE ONE Multivitamins/Minerals/Vitamin C 1 tab 10/19/17 10:00 10/27/17 09:19 Tab-A-Vit - PO 1 tab DAILY DAVID Administration Ondansetron HCl 4 mg 10/25/17 14:02 10/25/17 14:10 Zofran Injection IVPUSH 3.5 mg Q6H PRN Administration NAUSEA AND/OR VOMITING Oxycodone/Acetaminophen 2 combo 10/27/17 09:06 10/27/17 09:15 Percocet 5/325 - PO 2 combo Q4H PRN Administration PAIN LEVEL 6-10 Promethazine HCl 12.5 mg 10/25/17 14:02 Phenergan Injection - IVPUSH Q6H PRN NAUSEA-FOR RESCUE AFTER 15 MIN ASSESSMENT/PLAN: 87yF with HTN, HLD, CAD, asthma, diverticulitis, chronic biliary dilatation, colitis, hyponatremia, OA, and seizures presented to the ED s/p fall with left hip pain. POD #1 s/p left hip JONY for severe DJD. 1. Left hip pain -S/p JONY, POD #2 -Increase oral oxycodone-APAP to q4h -ASA for DVT ppx per ortho -PT 2. HTN -At goal -Continue Toprol, Lasix 3. CAD -Holding Plavix -Continue Imdur -ASA 4. F/E/N: Severe malnutrition in the setting of chronic illness (BMI 15.9) -Supplemental ensure -Encourage adequate PO intake -Monitor electrolytes, body weight DISPO: Continue inpatient management. For SUDHIR placement. No IV access Visit type - Emergency Visit Emergency Visit: Yes ED Registration Date: 10/19/17 Care time: The patient presented to the Emergency Department on the above date and was hospitalized for further evaluation of their emergent condition. - New Patient This patient is new to me today: No - Critical Care Critical Care patient: No - Discharge Referral Referred to [facility] Med P.C.: No
[2017-10-27] MEDS: morphine CARPU-JECT 4 MG/1 ML DISP.SYRIN IM ONE ×2 (11:13→11:16)
[2017-10-27] MEDS ORDERED: morphine CARPU-JECT 2 MG/1 ML DISP.SYRIN IM ONE (11:15)
[2017-10-27] MEDS: ACETAMINOPHEN 325 MG TABLET (FP) PO PRN (16:16)
[2017-10-27] MEDS ORDERED: oxyCODONE HCL 5 MG TABLET PO ONE (21:40)
[2017-10-27] MEDS: ATORVASTATIN CA 20 MG TABLET (FP) PO SCH (21:52)
[2017-10-27] MEDS: DOCUSATE SODIUM 100 MG CAPSULE (FP) PO SCH (21:52)
[2017-10-28] MEDS: LEVOTHYROXINE NA 50 MCG TABLET (FP) PO SCH (06:31)
[2017-10-28 08:17] LABS: HEMATOCRIT 22.2 % (32.4-45.2); HEMOGLOBIN 7.4 GM/dl (10.7-15.3); MCH 30.6 pg (25.7-33.7); MCHC 33.1 g/dl (32.0-36.0); MEAN CELL VOLUME 92.3 fl (80-96); MEAN PLT VOLUME 7.1 fl (7.5-11.1); PLATELET COUNT 402 K/MM3 (134-434); RBC 2.41 M/mm3 (3.60-5.2); RDW 16.2 % (11.6-15.6); WHITE BLOOD COUNT 15.6 K/mm3 (4.0-10.8)
[2017-10-28] MEDS: ASPIRIN 325 MG TABLET PO SCH (09:09)
[2017-10-28] MEDS: MULTIVITAMINS (DAILY MVI) TABLET (FP) PO SCH (10:44)
[2017-10-28] MEDS: FOLIC ACID 1 MG TABLET (FP) PO SCH (10:44)
[2017-10-28] MEDS: METOPROLOL SUCCINATE 50 MG TAB.SR.24H (FP) PO SCH (10:47)
[2017-10-28] MEDS: ISOSORBIDE MONONITRATE 30 MG TAB.SR.24H (FP) PO SCH (10:47)
[2017-10-28] MEDS: FUROSEMIDE 40 MG TABLET (FP) PO SCH (10:48)
--- NOTE | 2017-10-28 10:56 | PN ---
Physical Exam: SUBJECTIVE: Patient seen and examined, reports left hip pain upon movement, reports ongoing dizziness upon ambulating. OBJECTIVE: patient is a 87yF with HTN, HLD, CAD, asthma, diverticulitis, chronic biliary dilatation, colitis, hyponatremia, OA, and seizures presented to the ED s/p fall with left hip pain. POD # 3 s/p left hip JONY for severe DJD. Vital Signs Period Temp Pulse Resp BP Sys/Montgomery Pulse Ox Last 24 Hr 97.9 F-98.1 F 92-100 18-19 100-121/45-56 96-98 GENERAL: The patient is awake, alert, and fully oriented, in no acute distress. HEAD: Normal with no signs of trauma. EYES: PERRL, extraocular movements intact, sclera anicteric, conjunctiva clear. No ptosis. ENT: Ears normal, nares patent, oropharynx clear without exudates, moist mucous membranes. NECK: Trachea midline, full range of motion, supple. LUNGS: Breath sounds equal, clear to auscultation bilaterally, no wheezes, no crackles, no accessory muscle use. HEART: Regular rate and rhythm, S1, S2 without murmur, rub or gallop. ABDOMEN: Soft, nontender, nondistended, normoactive bowel sounds, no guarding, no rebound, no hepatosplenomegaly, no masses. EXTREMITIES: 2+ pulses, warm, well-perfused, no edema. LEFT LOWER EXTREMITY: scd/emliy, dressing CDI, less than 3 second capillary refill , +3 pedal pulse NEUROLOGICAL: Cranial nerves II through XII grossly intact. Normal speech, gait not observed. PSYCH: Normal mood, normal affect. SKIN: Warm, dry, normal turgor, no rashes or lesions noted Laboratory Results - last 24 hr 10/28/17 08:00 WBC 15.6 H RBC 2.41 L Hgb 7.4 L Hct 22.2 L MCV 92.3 MCH 30.6 MCHC 33.1 RDW 16.2 H Plt Count 402 MPV 7.1 L Active Medications Generic Name Dose Route Start Last Admin Trade Name Freq PRN Reason Stop Dose Admin Acetaminophen 650 mg 10/19/17 01:41 10/27/17 16:16 Tylenol - PO 650 mg Q6H PRN Administration PAIN LEVEL 1-5 Aspirin 325 mg 10/26/17 08:00 10/28/17 09:09 Asa - PO 325 mg DAILY@0800 [facility] Administration Atorvastatin Calcium 20 mg 10/19/17 22:00 10/27/17 21:52 Lipitor - PO 20 mg HS [facility] Administration Docusate Sodium 300 mg 10/19/17 22:00 10/27/17 21:52 Colace - PO 300 mg HS DAVID Administration Ferrous Sulfate 325 mg 10/28/17 11:00 Feosol - PO BID DAVID Folic Acid 1 mg 10/19/17 10:00 10/28/17 10:44 Folic Acid - PO 1 mg DAILY DAVID Administration Furosemide 40 mg 10/19/17 10:00 10/28/17 10:48 Lasix - PO Not Given DAILY [facility] Isosorbide Mononitrate 30 mg 10/19/17 10:00 10/28/17 10:47 Imdur - PO 30 mg DAILY DAVID Administration Levothyroxine Sodium 50 mcg 10/19/17 07:00 10/28/17 06:31 Synthroid - PO 50 mcg DAILY@0700 [facility] Administration Metoprolol Succinate 50 mg 10/19/17 10:00 10/28/17 10:47 Toprol Xl - PO 50 mg DAILY [facility] Administration Multivitamins/Minerals/Vitamin C 1 tab 10/19/17 10:00 10/28/17 10:44 Tab-A-Vit - PO 1 tab DAILY [facility] Administration Ondansetron HCl 4 mg 10/25/17 14:02 10/25/17 14:10 Zofran Injection IVPUSH 3.5 mg Q6H PRN Administration NAUSEA AND/OR VOMITING Oxycodone/Acetaminophen 2 combo 10/27/17 09:06 10/28/17 09:09 Percocet 5/325 - PO 2 combo Q4H PRN Administration PAIN LEVEL 6-10 ASSESSMENT/PLAN: 1. Left hip pain -S/p JONY, POD #3 - hgb 7.2, baseline 13, pt is symptomatic, 1 unit of PRBC ordered, repeat cbc at 1800 - continue oral oxycodone-APAP to q4h -ASA for DVT ppx per ortho -PT 2. HTN -At goal -Continue Toprol, Lasix 3. CAD -Holding Plavix -Continue Imdur -ASA DISPO: Continue inpatient management. For SUDHIR placement. Visit type - Emergency Visit Emergency Visit: Yes ED Registration Date: 10/19/17 Care time: The patient presented to the Emergency Department on the above date and was hospitalized for further evaluation of their emergent condition. - New Patient This patient is new to me today: No - Critical Care Critical Care patient: No - Discharge Referral Referred to [facility] Med P.C.: No
--- NOTE | 2017-10-28 10:56 | PN ---
Progress Note (short form) - Note Progress Note: Ortho Pt seen and examined s/p left denice thr Selected Entries 10/26/17 14:09 Temperature 98.1 F Pulse Rate 100 H Respiratory 20 Rate Blood Pressure 115/44 Laboratory Tests 10/28/17 08:00 WBC 15.6 H Hgb 7.4 L Hct 22.2 L Plt Count 402 dressing c/d/i, calf soft, nt nvi a/p Monitor h/h If stable tomorrow restart Plavix PT wbat dvt ppx d/c planning
[2017-10-28] MEDS: FERROUS SO4 325 MG TABLET (FP) PO SCH ×2 (12:28→21:04)
[2017-10-28] MEDS: AMINO ACIDS/PROTEIN HYDROLYS 30 ML LIQUID.PKT PO SCH (18:19)
[2017-10-28 18:40] LABS: PLATELET ESTIMATE SLT INCREASE
[2017-10-28 20:17] LABS: BASO % 0.2 % (0-2.0); EOS % 2.3 % (0-4.5); HEMATOCRIT 28.8 % (32.4-45.2); HEMOGLOBIN 9.3 GM/dl (10.7-15.3); LYMPH % 6.3 % (8-40); MCH 28.7 pg (25.7-33.7); MCHC 32.2 g/dl (32.0-36.0); MEAN CELL VOLUME 89.3 fl (80-96); MEAN PLT VOLUME 7.1 fl (7.5-11.1); MONO % 6.5 % (3.8-10.2); NEUT % 84.7 % (42.8-82.8); PLATELET COUNT 451 K/MM3 (134-434); RBC 3.22 M/mm3 (3.60-5.2); RDW 16.5 % (11.6-15.6); WHITE BLOOD COUNT 11.2 K/mm3 (4.0-10.8)
[2017-10-28] MEDS: DOCUSATE SODIUM 100 MG CAPSULE (FP) PO SCH (21:04)
[2017-10-28] MEDS: ATORVASTATIN CA 20 MG TABLET (FP) PO SCH (21:04)
[2017-10-29] MEDS: ACETAMINOPHEN 325 MG TABLET (FP) PO PRN ×2 (03:37→04:12)
[2017-10-29] MEDS: ONDANSETRON 4 MG/2 ML VIAL IVPUSH PRN (04:11)
[2017-10-29] MEDS: LEVOTHYROXINE NA 50 MCG TABLET (FP) PO SCH (06:28)
[2017-10-29] MEDS ORDERED: CLOPIDOGREL BISULFATE 75 MG TABLET (FP) PO SCH ×2 (08:00→08:34)
[2017-10-29] MEDS: ASPIRIN 325 MG TABLET PO SCH (08:06)
[2017-10-29] MEDS: AMINO ACIDS/PROTEIN HYDROLYS 30 ML LIQUID.PKT PO SCH (08:06)
--- NOTE | 2017-10-29 08:16 | PN ---
Progress Note (short form) - Note Progress Note: Ortho Pt seen and examined s/p left denice thr. received 1 unit prbcs Selected Entries 10/29/17 05:23 Temperature 98.9 F Pulse Rate 97 H Respiratory 16 Rate Blood Pressure 151/66 Laboratory Tests 10/28/17 20:00 WBC 11.2 H Hgb 9.3 L D Hct 28.8 L D Plt Count 451 H dressing c/d/i, calf soft, nt nvi a/p Restart plavix PT wbat dvt ppx d/c planning
[2017-10-29] MEDS: ISOSORBIDE MONONITRATE 30 MG TAB.SR.24H (FP) PO SCH (09:43)
[2017-10-29] MEDS: FUROSEMIDE 40 MG TABLET (FP) PO SCH (09:43)
[2017-10-29] MEDS: FERROUS SO4 325 MG TABLET (FP) PO SCH (09:43)
[2017-10-29] MEDS: METOPROLOL SUCCINATE 50 MG TAB.SR.24H (FP) PO SCH (09:43)
[2017-10-29] MEDS: MULTIVITAMINS (DAILY MVI) TABLET (FP) PO SCH (09:43)
[2017-10-29] MEDS: FOLIC ACID 1 MG TABLET (FP) PO SCH (09:43)
[2017-10-29 10:31] LABS: EOS % 2.2 % (0-4.5); HEMOGLOBIN 9.6 GM/dl (10.7-15.3); MCH 29.2 pg (25.7-33.7)
[2017-10-29 10:34] LABS: BASO % 0.3 % (0-2.0); HEMATOCRIT 29.4 % (32.4-45.2); LYMPH % 7.3 % (8-40); MCHC 32.5 g/dl (32.0-36.0); MEAN CELL VOLUME 89.9 fl (80-96); MEAN PLT VOLUME 7.1 fl (7.5-11.1); MONO % 5.5 % (3.8-10.2); NEUT % 84.7 % (42.8-82.8); PLATELET COUNT 507 K/MM3 (134-434); RBC 3.27 M/mm3 (3.60-5.2); WHITE BLOOD COUNT 11.2 K/mm3 (4.0-10.8)
--- NOTE | 2017-10-29 11:03 | DS ---
Physical Exam: SUBJECTIVE: Patient seen and examined Still c/o left hip pain OBJECTIVE: Vital Signs Period Temp Pulse Resp BP Sys/Montgomery Pulse Ox Last 24 Hr 98 F-98.9 F 88-97 15-18 105-151/51-66 96-96 PHYSICAL EXAM GENERAL: The patient is awake, alert, and fully oriented, in no acute distress. HEAD: Normal with no signs of trauma. EYES: PERRL, extraocular movements intact, sclera anicteric, conjunctiva clear. ENT: Ears normal, nares patent, oropharynx clear without exudates, moist mucous membranes. NECK: Trachea midline, full range of motion, supple. LUNGS: Breath sounds equal, clear to auscultation bilaterally, no wheezes, no crackles, no accessory muscle use. HEART: Regular rate and rhythm, S1, S2 without murmur, rub or gallop. ABDOMEN: Soft, nontender, nondistended, normoactive bowel sounds, no guarding, no rebound, no hepatosplenomegaly, no masses. EXTREMITIES: 2+ pulses, warm, well-perfused, no edema. Left hip dsg dry and intact NEUROLOGICAL: Cranial nerves II through XII grossly intact. Normal speech, gait not observed. PSYCH: Normal mood, normal affect. SKIN: Warm, dry, normal turgor, no rashes or lesions noted. LABS Laboratory Results - last 24 hr 10/28/17 10/28/17 10/28/17 08:00 11:00 20:00 WBC 11.2 H RBC 3.22 L D Hgb 9.3 L D Hct 28.8 L D MCV 89.3 MCH 28.7 MCHC 32.2 RDW 16.5 H Plt Count 451 H MPV 7.1 L Neutrophils % 84.7 H Neutrophils % (Manual) 62.0 Band Neutrophils % 5.0 Lymphocytes % 6.3 L Lymphocytes % (Manual) 23.0 Monocytes % 6.5 Monocytes % (Manual) 10 Eosinophils % 2.3 Basophils % 0.2 Platelet Estimate Slt increase Blood Type B POSITIVE Antibody Screen Negative Crossmatch See Detail 10/29/17 07:15 WBC 11.2 H RBC 3.27 L Hgb 9.6 L Hct 29.4 L MCV 89.9 MCH 29.2 MCHC 32.5 RDW 17.0 H Plt Count 507 H MPV 7.1 L Neutrophils % 84.7 H Neutrophils % (Manual) Band Neutrophils % Lymphocytes % 7.3 L Lymphocytes % (Manual) Monocytes % 5.5 Monocytes % (Manual) Eosinophils % 2.2 Basophils % 0.3 Platelet Estimate Blood Type Antibody Screen Crossmatch * ECG Normal sinus rhythm,Rate 99, QTC 508 possible LA enlargement,RBB, LAFB Radiology Reports CT Pelvis Impression: 1. No acute displaced fracture or dislocation in the left hip or bony pelvis. If there is continued clinical suspicion for nondisplaced acute fracture, then consider further evaluation with nuclear medicine bone scintigraphy or MRI. 2. Severe ukxc-ec-[id number] osteoarthritis in the left hip as described above. Flattening of the left femoral head may be degenerative osseous remodeling, although, a component of AVN cannot be entirely excluded. 3. Small left hip joint effusion and prominent soft tissue surrounding the left hip which may be the sequela of synovitis, overall similar to 09/10/2017 CT. 4. Status post right total hip arthroplasty. 5. Partially imaged sheetlike ossifications in the soft tissues overlying bilateral femurs may be posttraumatic change or related to autoimmune, inflammatory or collagen vascular disease. Reported By: Jacob Trejo DO 10/18/17 2149 L Femur, hip and pelvis xray Impression: 1. No acute displaced fracture or dislocation in the pelvis, left hip or left femur. 2. Severe, [id number] osteoarthritic changes in the left hip with interval progression of left femoral head flattening since 06/26/2016. Left femoral head AVN is not excluded. 3. Extensive sheetlike soft tissue calcifications versus ossifications overlying the left femoral diaphysis appears similar to 06/26/2016 and may reflect chronic posttraumatic injury such as myositis ossificans, although, an autoimmune/inflammatory disease or collagen vascular disease are not excluded. 4. Status post right total hip arthroplasty. Reported By: Jacob Trejo DO 10/18/17 1702 R wrist Impression: 1. A 2 x 2 MM triangular-shaped ossific density in the radial soft tissues adjacent to the base of the first metacarpal may be an old fracture, indeterminant chronicity. Please correlate clinically with point tenderness. 2. Otherwise, no definite acute fracture in the remainder of the right hand or right wrist. 3. Osteoarthritic changes as described above. Reported By: Jacob Trejo DO 10/18/17 1707 HOSPITAL COURSE: Date of Admission:10/19/17 Date of Discharge: 10/29/17 This is an 87yF with HTN, HLD, CAD, asthma, diverticulitis, hypothyroidism, chronic biliary dilatation, colitis, hyponatremia, OA, and seizures presented to the ED s/p fall a mechanical fall with left hip pain. Imaging ruled out acute fracture but revealed severe iibv-gy-[id number] osteoarthritis in the left hip. Pt was evaluated by orthopedic and underwent total left hip replacement,rec WBAT ,left dressing D&I. PT eval done, recommend Rehab which arranged. Will continue on ASA for DVT prophylaxis and pain management with Oxycodone. *Acute blood loss anemia secondary to sx, pt received unit of blood, CBC remains stable,will continue on Fe pills and followup on CBC *HTN: BP stable, will continue on home dose Toprol, Lasix. *CAD: Will continue on Plavix, ASA,Imdur,Toprol and Lasix and Statin. *HLD: Will continue on statin * Hypothyroidism: Will continue on Synthroid * ? hx of seizure: Not on any medications * Hx of asthma - stable, not on any meds at this time Minutes to complete discharge: 40 Discharge Summary Reason For Visit: ARTHRALGIA OF HIP Current Active Problems Hip pain (Acute) Condition: Stable - Instructions Diet, Activity, Other Instructions: Heart Healthy diet. Activity : Weight bearing as tolerated. Followup on CBC Referrals: Shaggy Morelos MD [Staff Physician] - Jeff Centeno MD [Primary Care Provider] - Disposition: LONGTERM FACILITY - Home Medications Comprehensive Discharge Medication List: Ambulatory Orders Clopidogrel Bisulfate [Plavix -] 75 mg PO DAILY 02/06/17 Acetaminophen [Tylenol .Regular Strength -] 325 mg PO Q4H PRN #0 tablet Oxycodone HCl [Roxicodone -] 10 mg PO Q4H PRN #60 tablet MDD 6 02/08/17 Amino Acids/Protein Hydrolys [Prosource No Carb Liquid Pkt] 30 ml PO BID@0800, 1730 packet 10/29/17 Aspirin [ASA -] 325 mg PO DAILY@0800 tablet 10/29/17 Atorvastatin Ca [Lipitor] 20 mg PO HS tablet 10/29/17 Docusate Sodium [Colace -] 300 mg PO HS capsule 10/29/17 Ferrous Sulfate [Feosol] 325 mg PO BID ud 10/29/17 Folic Acid - 1 mg PO DAILY tablet 10/29/17 Isosorbide Mononitrate [Imdur -] 30 mg PO DAILY tab.sr.24h 10/29/17 Levothyroxine [Synthroid -] 50 mcg PO DAILY@0700 tablet 10/29/17 Metoprolol Succinate [Toprol XL -] 50 mg PO DAILY tab.sr.24h 10/29/17 Multivitamins [Multivit ([facility] Formulary)] 1 tab PO DAILY tab 10/29/17 This patient is new to me today: Yes Date on this admission: 10/29/17 Emergency Visit: Yes ED Registration Date: 10/19/17 Care time: The patient presented to the Emergency Department on the above date and was hospitalized for further evaluation of their emergent condition. Critical Care patient: No - Discharge Referral Referred to [facility] Med P.C.: No
[2017-10-29 18:03] VITALS: BP 116/68; PULSE 88; TEMP 98
--- NOTE | 2017-10-30 15:35 | PATH ---
Surgical Pathology Report Patient Name: MARY WADE Med. Rec. #: [id number] /Age/Gender: 1930 (Age: 87) / F Account: [id number] Location: [facility] MED-SURG Taken: 10/25/2017 Received: 10/25/2017 Reported: 10/30/2017 Physicians: Shaggy Morelos M.D. Specimen(s) Received LEFT HEAD OF FEMUR Clinical History Arthralgia of left hip Final Diagnosis HEAD OF FEMUR, LEFT, TOTAL HIP REPLACEMENT: DEGENERATIVE JOINT DISEASE. Electronically Signed Marylin Dixon M.D. Gross Description Received in formalin, labeled "left head of femur," is a 4.5 x 4.5 x 3.2 cm. markedly deformed femoral head with a 1.2 cm in length portion of femoral neck attached. The margin of resection is smooth. There is a 5.2 cm greatest dimension area of eburnation identified. The remaining articular surface is small-yellow and granular. The underlying trabecular bone is yellow and hard. A computer help desk representative section is submitted in one cassette, following decalcification. 10/29/2017 saudi10/29/2017
== END 2017-10-29 16:35 | DRG 469 ==
LOC: JER 14:40 → JERBED 10-19 00:17 → OBSVTOIN 10-19 00:17 → JERBED 10-19 00:30 → UNDOADMOB 10-19 00:30 → J8W 10-19 03:03 → OBSVTOIN 10-22 13:38 → INTOOBSV 10-22 13:38 → UNDODISIN 10-23 18:33 → FM/S 10-23 18:40 → UNDODISIN 10-27 12:00
PROVIDERS: ADMIT Internal Medicine; ATTEND Nurse Practitioner Family
PROC: 30233N1 Transfusion of Nonautologous Red Blood Cells into Peripheral Vein, Percutaneous Approach (ICD-10-PCS; 2017-10-24)
PROC: 8E0Y0CZ Robotic Assisted Procedure of Lower Extremity, Open Approach (ICD-10-PCS; 2017-10-25)
PROC: 0SRB0JZ Replacement of Left Hip Joint with Synthetic Substitute, Open Approach (ICD-10-PCS; principal; 2017-10-25 12:28)
DX: M16.12 Unilateral primary osteoarthritis, left hip (principal); E43 Unspecified severe protein-calorie malnutrition; D62 Acute posthemorrhagic anemia; J45.909 Unspecified asthma, uncomplicated; I10 Essential (primary) hypertension; J44.9 Chronic obstructive pulmonary disease, unspecified; I25.10 Atherosclerotic heart disease of native coronary artery without angina pectoris; Z87.891 Personal history of nicotine dependence; K21.9 Gastro-esophageal reflux disease without esophagitis
CPT/HCPCS: 36415; 36430; 36511; 72192-TC; 73110-TC-RT; 73130-TC-RT; 73523-TC; 73552-TC-LT; 73700-TC-RT; 80048; 80053; 81003; 82550; 83735; 84100; 85025; 85027; 85610; 85730; 86850; 86900; 86901; 86922; 90688; 93005; 93010; 94010; 94760; 97116-GP; 97162-GP; 99284-25; G0378; J1644; P9038; P9058

== ENCOUNTER 2018-06-14 12:01 | Inpatient (IN) | payer OTHER ==
--- NOTE | 2018-06-14 13:15 | PDOC ---
History of Present Illness - General Chief Complaint: Edema Stated Complaint: SEVERE KNEE PAIN Time Seen by Provider: 06/14/18 12:54 History Source: Patient Exam Limitations: No Limitations - History of Present Illness Initial Comments: CHIEF COMPLAINT: 88 y/o afebrile female with PMH OA with left hip replacement in 10/2017 for [id number] OA, HLD, CAD (on plavix) c/o worsened left knee pain for over 1 week. HISTORY OF PRESENT ILLNESS: The patient states 8 days ago she started having left knee pain. She was seen here, had a negative left knee xray and a doppler that was negative for DVT. She was discharged. She states her left knee pain and swelling has gotten worse and she cannot extend her left knee. She states she can't walk. She denies fall, trauma, redness, streaking, fever, chills. Vital signs on arrival are within normal limits REVIEW OF SYSTEMS: GENERAL/CONSTITUTIONAL: No fever/chills. No weakness. No weight change. MUSCULOSKELETAL: +left knee swelling and pain. No neck or back pain. SKIN: No rash or easy bruising. NEUROLOGIC: No headache, vertigo, loss of consciousness, or loss of sensation. PHYSICAL EXAM: VITAL_SIGNS: within normal limits GENERAL_APPEARANCE: alert, cooperative, mild obvious discomfort. MENTAL_STATUS: speech clear, oriented X 3, responds appropriately to questions. NEURO: sensory intact in injured extremity. EXTREMITIES: moderate swelling to left knee, which is held in flexion. Exquisite pain with attempt at extension and with palpation of left knee joint line. No erythema, warmth, streaking, deformities to left knee. No left calf pain. Negative Robbie's sign left leg. SKIN: warm, dry, good color. Past History - Past Medical History Allergies/Adverse Reactions: Allergies Allergy/AdvReac Type Severity Reaction Status Date / Time lactose Allergy Mild Verified 06/06/18 09:59 meperidine HCl [From Demerol] Allergy Verified 06/06/18 09:59 TAPE AdvReac Intermediate Uncoded 06/06/18 09:59 Home Medications: Ambulatory Orders Atorvastatin Calcium 20 mg PO HS 06/06/18 Clopidogrel Bisulfate [Plavix] 75 mg PO DAILY 06/06/18 Esomeprazole Magnesium 40 mg PO DAILY 06/06/18 Folic Acid 1 mg PO DAILY 06/06/18 Isosorbide Mononitrate [Isosorbide Mononitrate ER] 30 mg PO DAILY 06/06/18 Levothyroxine [Synthroid -] 50 mcg PO DAILY 06/06/18 Metoprolol Tartrate 50 mg PO DAILY 06/06/18 Multivitamins [Tab-A-Vit -] 1 tab PO DAILY 06/06/18 Prednisone 5 mg PO DAILY 06/06/18 Tramadol HCl 25 mg PO QID PRN #20 tablet MDD 4 06/06/18 Tramadol HCl 25 mg PO QID PRN #10 tablet MDD 4 06/14/18 Anemia: Yes Asthma: Yes Cancer: No Cardiac Disorders: Yes CVA: No COPD: Yes (asthma, bronchitis bronchial pneumonia) CHF: No Dementia: No Diabetes: No GI Disorders: Yes (DIVERTICULITIS, polyps) Disorders: No HTN: Yes Hypercholesterolemia: Yes Liver Disease: No Seizures: Yes (h/o trance-like episodes) Thyroid Disease: Yes (hypo) - Surgical History Abdominal Surgery: Yes Appendectomy: Yes Cardiac Surgery: Yes (cardiac stent X 3) Cholecystectomy: Yes Lung Surgery: Yes (Pulm TB, Lobectomy) Neurologic Surgery: No Orthopedic Surgery: Yes (RT HIP REPLACEMENT) - Immunization History Immunization Up to Date: Yes - Suicide/Smoking/Psychosocial Hx Smoking Status: Yes Smoking History: Never smoked Have you smoked in the past 12 months: No Number of Cigarettes Smoked Daily: 2 'Breaking Loose' booklet given: 02/02/14 Hx Alcohol Use: No Drug/Substance Use Hx: No Substance Use Type: None Hx Substance Use Treatment: No Medical Decision Making - Medical Decision Making A/P: 88 y/o female with worsening left knee swelling and pain. Plan is as follows: 1. Left knee xray Left knee xray IMPRESSION: Loss of bone density with no sign of a gross fracture. There are heavy soft tissue calcifications about the femur. An effusion is not seen. An effusion was present in the earlier study of 06/06/18. The knee appears distorted and flexed. Gross fracture is not seen. There is no sign of blastic or lytic changes. There is some loss of bone density. Gave patient her results and tramadol. Called EMS for return home. Waited over an hour for EMS. On vital check prior to discharge patient was found to be hypertensive. Gave 50mg of metoprolol and 2 percocet for pain 40 minutes later the patient states her pain is much better and she feels better. However, vital check shows slightly decreased BP but tachycardic to 120 and irregular. Will change from discharge to active patient. Ordered labs, EKG, CXR I am signing this patient out to my colleague: NADIA Chun In brief, this patient is being seen in the ED for a chief complaint of: left knee pain I have completed the initial assessment interview note and have ordered: left knee xray, labs, EKG, CXR I have reviewed the following results: left knee xray Pending results are: rest Plan for disposition is as follows: pending *DC/Admit/Observation/Transfer Diagnosis at time of Disposition: Tachycardia Knee pain, left Qualifiers: Chronicity: acute Qualified Code(s): M25.562 - Pain in left knee - Discharge Dispostion Disposition: HOME Condition at time of disposition: Fair - Prescriptions Prescriptions: Tramadol HCl 25 mg PO QID PRN #10 tablet MDD 4 PRN Reason: Pain - Referrals Referrals: Shaggy Morelos MD [Staff Physician] - (Call Saturday) - Patient Instructions Printed Discharge Instructions: How To Perform RICE (Rest, Ice, Compress, Elevate), DI for Knee Pain Additional Instructions: Discharge Instructions: -The xray of your knee did not show any broken bones or swelling -A prescription for pain medication has been sent to your pharmacy; please take as prescribed if needed for pain -Call Dr. Morelos on Saturday to schedule a follow up appointment as soon as possible -Follow RICE instructions and use YAQUELIN bandage for comfort. - Post Discharge Activity
[2018-06-14] MEDS ORDERED: traMADol HCL 50 MG TABLET PO ONE (15:01)
[2018-06-14] MEDS ORDERED: traMADol HCL 50 MG TABLET ONE (15:16)
[2018-06-14] MEDS ORDERED: METOPROLOL TARTRATE 50 MG TABLET (FP) PO ONE (18:00)
[2018-06-14] MEDS ORDERED: METOPROLOL TARTRATE 50 MG TABLET (FP) ONE (18:12)
--- NOTE | 2018-06-14 19:27 | PDOC ---
*Physical Exam - Vital Signs Last Vital Signs Temp Pulse Resp BP Pulse Ox 97.8 F 121 H 16 197/121 96 06/14/18 17:45 06/14/18 18:56 06/14/18 18:56 06/14/18 18:56 06/14/18 18:56 - Physical Exam General Appearance: Yes: Thin Respiratory/Chest: positive: Lungs Clear, Normal Breath Sounds. negative: Chest Tender, Respiratory Distress, Accessory Muscle Use Cardiovascular: positive: Regular Rhythm, Regular Rate. negative: Murmur Gastrointestinal/Abdominal: positive: Normal Bowel Sounds, Soft. negative: Tender Extremity: positive: Other (Large irregular firm palpable lobular masses noted to bilateral thighs.) Integumentary: positive: Normal Color, Dry, Warm ED Treatment Course - LABORATORY CBC & Chemistry Diagram: 06/14/18 20:35 06/14/18 20:35 - Medications Given in the ED: ED Medications Discontinued Medications Generic Name Dose Route Start Last Admin Trade Name Freq PRN Reason Stop Dose Admin Metoprolol Tartrate 50 mg 06/14/18 18:00 06/14/18 18:11 Lopressor - PO 06/14/18 18:01 50 mg ONCE ONE Administration Oxycodone/Acetaminophen 1 combo 06/14/18 17:26 06/14/18 17:11 Percocet 5/325 - PO 06/14/18 17:27 1 combo ONCE ONE Administration Oxycodone/Acetaminophen 1 combo 06/14/18 18:00 06/14/18 18:11 Percocet 5/325 - PO 06/14/18 18:01 1 combo ONCE ONE Administration Tramadol HCl 50 mg 06/14/18 15:01 06/14/18 15:16 Ultram - PO 06/14/18 15:02 50 mg ONCE ONE Administration Progress Note - Progress Note Progress Note: Received signout from FRANKIE Matson. Briefly this is an 88-year-old woman past medical history of osteoarthritis hyperlipidemia, hypertension, CAD on Plavix, hypothyroidism and GERD who presents emergency departments with knee pain. Workup for knee pain was completed and patient was pending transfer back to long-term facility when she became hypertensive. Patient was given an extra dose of metoprolol while in the emergency departments and then developed tachycardia. Patient was tachycardic with a rate of 125 and was irregular her signout. Workup for new onset A. fib started. Presently patient denies headaches, dizziness, chest pain, shortness of breath, nausea, vomiting. Apical heart rate auscultated which is regular with a rate of 92 bpm. I have added urine studies, cardiac monitoring and d-dimer to laboratory testing. PE is less likely given patient had negative DVT study performed 8 days prior. Disposition pending. Medical Decision Making - Medical Decision Making 06/14/18 22:30 EKG is sinus rhythm with ventricular rate of 95. Right bundle-branch block present. No ischemic changes noted. Unchanged from previous EKG performed on . 06/14/18 23:[address] Collins the hospitalist service. I'll give the patient nifedipine 60 mg orally now and reassess blood pressure. If blood pressure does not improve after receiving nifedipine we'll start a nicardipine drip and admit patient to ICU. 06/15/18 00:51 X-rays read by me: No focal consolidations or infiltrates present. Chest wall deformity noted on the left side which is present in previous study of 02/06/17. Cardiomegaly present. 06/15/18 01:42 No change in BP. Cardene gtt started. Pt to be admitted to ICU. Accepted for admission by MD Collins. 06/15/18 03:36 SBP dropped to 93. Cardene gtt stopped. 500cc bolus of NS given. Admitting team made aware. Dispo changed to floor. *DC/Admit/Observation/Transfer Diagnosis at time of Disposition: Asymptomatic hypertensive urgency Knee pain, left Qualifiers: Chronicity: acute Qualified Code(s): M25.562 - Pain in left knee - Discharge Dispostion Condition at time of disposition: Fair Decision to Admit order: Yes - Prescriptions - Referrals - Patient Instructions - Post Discharge Activity
[2018-06-14 20:48] LABS: BASO % 0.8 % (0-2.0); EOS % 0.9 % (0-4.5); HEMATOCRIT 39.7 % (32.4-45.2); HEMOGLOBIN 13.3 GM/dL (10.7-15.3); LYMPH % 6.2 % (8-40); MCH 30.3 pg (25.7-33.7); MCHC 33.4 g/dl (32.0-36.0); MEAN CELL VOLUME 90.6 fl (80-96); MONO % 6.1 % (3.8-10.2); PLATELET COUNT 712 K/MM3 (134-434); RBC 4.38 M/mm3 (3.60-5.2); RDW 14.9 % (11.6-15.6); WHITE BLOOD COUNT 12.5 K/mm3 (4.0-10.0)
[2018-06-14 20:53] LABS: VENOUS PC02 44.4 mmHg (38-52); VENOUS PH 7.39 (7.32-7.42); VENOUS PO2 46.9 mmHg (28-48)
[2018-06-14] MEDS ORDERED: METOPROLOL TARTRATE 5 MG/5 ML VIAL IVPUSH ONE (20:53)
[2018-06-14] MEDS ORDERED: METOPROLOL TARTRATE 5 MG/5 ML VIAL ONE (21:02)
[2018-06-14 21:07] LABS: ALBUMIN 3.3 g/dl (3.4-5.0); ANION GAP 11 MMOL/L (8-16); BILIRUBIN,TOTAL 0.2 mg/dL (0.2-1.0); BLOOD UREA NITROGEN 7 mg/dL (7-18); CHLORIDE 99 mmol/L (98-107); CO2 26 mmol/L (21-32); CREATININE 0.6 mg/dL (0.55-1.02); GLUCOSE,RANDOM 159 mg/dL (74-106); POTASSIUM 3.3 mmol/L (3.5-5.1); SGOT/AST 14 U/L (15-37); SGPT/ALT 12 U/L (12-78); SODIUM 136 mmol/L (136-145); TOT PROT 8.5 g/dl (6.4-8.2)
[2018-06-14 21:09] LABS: ALK PHOS 118 U/L (45-117)
[2018-06-14] MEDS ORDERED: NITROGLYCERIN 2% OINTMENT - 1GM PACKET TD ONE ×2 (22:15→22:20)
[2018-06-14] MEDS ORDERED: LABETALOL HCL 5 MG/1 ML (100MG/20 ML VIAL) IVPUSH ONE (22:15)
[2018-06-14] MEDS ORDERED: LABETALOL HCL 5 MG/1 ML (200MG/40ML VIAL) IVPB ONE (22:20)
[2018-06-15] MEDS ORDERED: NIFEdipine E.R 60 MG TABLET (UD) PO ONE
[2018-06-15] MEDS ORDERED: hydrALAZINE HCL 20 MG/ML VIAL IVPUSH ONE (01:09)
[2018-06-15] MEDS ORDERED: hydrALAZINE HCL 20 MG/ML VIAL ONE (01:11)
[2018-06-15] MEDS ORDERED: NICARDIPINE 25 MG in DEXTROSE 5%-WATER - 240 ML IVPB SCH (01:15)
[2018-06-15] MEDS ORDERED: traMADol HCL 50 MG TABLET PO PRN (02:31)
--- NOTE | 2018-06-15 02:32 | HP ---
CHIEF COMPLAINT: L knee pain HISTORY OF PRESENT ILLNESS: Patient is an 88 yo F with PMHx of osteoarthritis, HLD, hypertension, CAD on Plavix, hypothyroidism and GERD, presented to the ED w/ L knee pain. Patient says pain is 10/10 and has been going on for over a week. She came to the ED 1 week ago for L knee pain. Left Knee plain films revealed calcification and degenerative changes of joint space with a new suprapatellar effusion. She was given Tramadol in the ER and was being prepared for discharge. Patient was found to have BP of 214/130 on discharge. Lopressor 50mg, Nifedipine 60mg, Labetolol 10mg, was then given with no improvement in BP. Patient is now on Cardipine drip. Patient denies headache, chest pain, sob, dizziness, nausea, vomiting, chills, fevers, dysuria. ER course was notable for: (1) X ray of L knee: Loss of bone density with no sign of a gross fracture. There are heavy soft tissue calcifications about the femur. An effusion is not seen. An effusion was present in the earlier study of 06/06/18. The knee appears distorted and flexed. Gross fracture is not seen. There is no sign of blastic or lytic changes. There is some loss of bone density. (2) BP of 214/130 (3) ICU, on nicardipine drip Recent Travel: n/a PAST MEDICAL HISTORY: per HPI Family History: Allergies lactose Allergy (Mild, Verified 06/06/18 09:59) meperidine HCl [From Demerol] Allergy (Verified 06/06/18 09:59) TAPE Adverse Reaction (Intermediate, Uncoded 06/06/18 09:59) FROM DURAGESIC PATCH HOME MEDICATIONS: Home Medications Medication Instructions Recorded Atorvastatin Calcium 20 mg PO HS 06/06/18 Clopidogrel Bisulfate [Plavix] 75 mg PO DAILY 06/06/18 Esomeprazole Magnesium 40 mg PO DAILY 06/06/18 Folic Acid 1 mg PO DAILY 06/06/18 Isosorbide Mononitrate [Isosorbide 30 mg PO DAILY 06/06/18 Mononitrate ER] Levothyroxine [Synthroid -] 50 mcg PO DAILY 06/06/18 Metoprolol Tartrate 50 mg PO DAILY 06/06/18 Multivitamins [Tab-A-Vit -] 1 tab PO DAILY 06/06/18 Prednisone 5 mg PO DAILY 06/06/18 Tramadol HCl 25 mg PO QID PRN #20 tablet MDD 4 06/06/18 Tramadol HCl 25 mg PO QID PRN #10 tablet MDD 4 06/14/18 REVIEW OF SYSTEMS CONSTITUTIONAL: Absent: fever, chills, diaphoresis, generalized weakness, malaise, loss of appetite, weight change HEENT: Absent: rhinorrhea, nasal congestion, throat pain, throat swelling, difficulty swallowing, mouth swelling, ear pain, eye pain, visual changes CARDIOVASCULAR: Absent: chest pain, syncope, palpitations, irregular heart rate, lightheadedness , peripheral edema RESPIRATORY: Absent: cough, shortness of breath, dyspnea with exertion, orthopnea, wheezing, stridor, hemoptysis GASTROINTESTINAL: Absent: abdominal pain, abdominal distension, nausea, vomiting, diarrhea, constipation, melena, hematochezia GENITOURINARY: Absent: dysuria, frequency, urgency, hesitancy, hematuria, flank pain, genital pain MUSCULOSKELETAL: joint swelling, arthralgia Absent: myalgia, back pain, neck pain SKIN: Absent: rash, itching, pallor HEMATOLOGIC/IMMUNOLOGIC: Absent: easy bleeding, easy bruising, lymphadenopathy, frequent infections ENDOCRINE: Absent: unexplained weight gain, unexplained weight loss, heat intolerance, cold intolerance NEUROLOGIC: Absent: headache, focal weakness or paresthesias, dizziness, unsteady gait, seizure, mental status changes, bladder or bowel incontinence PSYCHIATRIC: Absent: anxiety, depression, suicidal or homicidal ideation, hallucinations. PHYSICAL EXAMINATION Vital Signs - 24 hr 06/14/18 06/14/18 06/14/18 12:01 15:28 17:45 Temperature 98.0 F 97.8 F Pulse Rate 100 H 68 Pulse Rate [ 74 Left Apical] Respiratory 16 16 Rate Blood Pressure 186/102 Blood Pressure 214/130 [Left Arm] O2 Sat by Pulse 100 98 96 Oximetry (%) 06/14/18 06/14/18 06/14/18 18:56 19:05 23:58 Temperature 97.9 F 98.2 F Pulse Rate Pulse Rate [ 121 H 90 84 Left Apical] Respiratory 16 23 22 Rate Blood Pressure Blood Pressure 197/121 173/126 206/106 [Left Arm] O2 Sat by Pulse 96 97 99 Oximetry (%) GENERAL: A/o x 3, in NAD EYES: Pupils equal, round and reactive to light, extraocular movements intact EARS, NOSE, THROAT: oropharynx clear without exudates. Moist mucous membranes. NECK: supple without lymphadenopathy, JVD, or masses. LUNGS: Breath sounds equal, clear to auscultation bilaterally. No wheezes, and no crackles. No accessory muscle use. HEART: Regular rate and rhythm, normal S1 and S2 without murmur, rub or gallop. ABDOMEN: Soft, nontender, not distended, normoactive bowel sounds, no guarding, no rebound, no masses. No hepatomegaly or splenomegaly. LOWER EXTREMITIES: L knee swelling. Patient has knee flexed. Pain with attempt to extend knee. Patient refused further knee examination. Did not appear erythematous. NEUROLOGICAL: Cranial nerves II-XII intact SKIN: cutaneous nodules/mass on lateral thighs (chronic per [employer]) Laboratory Results - last 24 hr 06/14/18 06/14/18 06/14/18 20:35 20:35 20:35 WBC 12.5 H RBC 4.38 Hgb 13.3 Hct 39.7 D MCV 90.6 MCH 30.3 MCHC 33.4 RDW 14.9 D Plt Count 712 H MPV 6.0 L Absolute Neuts (auto) 10.8 H Neutrophils % 86.0 H Lymphocytes % 6.2 L D Monocytes % 6.1 Eosinophils % 0.9 Basophils % 0.8 Nucleated RBC % 0 D-Dimer VBG pH 7.39 POC VBG pCO2 44.4 POC VBG pO2 46.9 Mixed VBG HCO3 26.1 H Sodium 136 Potassium 3.3 L Chloride 99 Carbon Dioxide 26 Anion Gap 11 BUN 7 Creatinine 0.6 Creat Clearance w eGFR > 60 Random Glucose 159 H Calcium 9.0 Total Bilirubin 0.2 AST 14 L ALT 12 Alkaline Phosphatase 118 H Creatine Kinase 71 Troponin I 0.04 Total Protein 8.5 H Albumin 3.3 L 06/14/18 21:33 WBC RBC Hgb Hct MCV MCH MCHC RDW Plt Count MPV Absolute Neuts (auto) Neutrophils % Lymphocytes % Monocytes % Eosinophils % Basophils % Nucleated RBC % D-Dimer 2044 H VBG pH POC VBG pCO2 POC VBG pO2 Mixed VBG HCO3 Sodium Potassium Chloride Carbon Dioxide Anion Gap BUN Creatinine Creat Clearance w eGFR Random Glucose Calcium Total Bilirubin AST ALT Alkaline Phosphatase Creatine Kinase Troponin I Total Protein Albumin ASSESSMENT/PLAN: 88 yo F with PMHx of osteoarthritis, HLD, hypertension, CAD on Plavix, hypothyroidism and GERD, presented to the ED w/ L knee pain and was found to be in hypertensive urgency. #Hypertensive Urgency -50mg Lopressor, Nifedipine 60mg, Labetolol 10mg, given in ED with no improvement in BP -Nicardipine Drip -ICU admission -cardiac monitoring -needs Med rec -EKG is NSR. RBBB present. No ischemic changes noted. Unchanged from previous EKG performed on 06/06/18. #Left knee Pain - X ray of L knee: Loss of bone density with no sign of a gross fracture. There are heavy soft tissue calcifications about the femur. An effusion is not seen. An effusion was present in the earlier study of 06/06/18. The knee appears distorted and flexed. Gross fracture is not seen. There is no sign of blastic or lytic changes. There is some loss of bone density. -Ortho consult -Tramadol 50mg PO PRN #FEN -No Iv fluids -monitor lyes -low sodium diet Ppx: Hep SQ Visit type - Emergency Visit Emergency Visit: Yes ED Registration Date: 06/15/18 Care time: The patient presented to the Emergency Department on the above date and was hospitalized for further evaluation of their emergent condition. - New Patient This patient is new to me today: Yes Date on this admission: 06/15/18 - Critical Care Critical Care patient: Yes Total Critical Care Time (in minutes): 35 Critical Care Statement: The care of this patient involved high complexity decision making to prevent further life threatening deterioration of the patient 's condition and/or to evaluate & treat vital organ system(s) failure or risk of failure. Hospitalist Screening - Colonoscopy Questionnaire Colonoscopy Questionnaire: Colonoscopy Questionnaire - Patient: 50 - 75 years old and never had a screening colonoscopy: Unknown History of colon or rectal polyps, or CA: Unknown History of IBD, Crohn's disease or UC: Unknown History of abdominal radiation therapy as a child: Unknown - Relative: 1 with colon or rectal CA, or polyps at age 60 or younger: Unknown Colon or rectal CA diagnosed at age 45 or younger: Unknown Multiple relatives with colon or rectal CA: Unknown - Outcome: Screening Result: Negative Screen
[2018-06-15] MEDS ORDERED: SODIUM CHLORIDE 0.9% 500 ML INFUS.BAG IV ONE (03:03)
[2018-06-15] MEDS ORDERED: PANTOPRAZOLE SODIUM 40 MG VIAL IVPUSH ONE (03:03)
--- NOTE | 2018-06-15 03:17 | PN ---
Teaching Attending Note Name of Resident: Luisito Hayes ATTENDING PHYSICIAN STATEMENT I saw and evaluated the patient. I reviewed the resident's note and discussed the case with the resident. I agree with the resident's findings and plan as documented. SUBJECTIVE: OBJECTIVE: ASSESSMENT AND PLAN: 88 yo F with PMHx of osteoarthritis, HLD, hypertension, CAD on Plavix, hypothyroidism and GERD, presented to the ED w/ L knee pain and was found to be in hypertensive urgency. #Hypertensive Urgency -50mg Lopressor, Nifedipine 60mg, Labetolol 10mg, given in ED with no improvement in BP -Nicardipine Drip titrate and d/c accordingly -admit the patient to the ICU -EKG is NSR. RBBB present. No ischemic changes noted. Unchanged from previous EKG performed on 06/06/18. - start the patient on 90mg nifidipine - start the patient on ramipril 10mg #Left knee Pain - X ray of L knee: Loss of bone density with no sign of a gross fracture. There are heavy soft tissue calcifications about the femur. An effusion is not seen. An effusion was present in the earlier study of 06/06/18. The knee appears distorted and flexed. Gross fracture is not seen. There is no sign of blastic or lytic changes. There is some loss of bone density. -Ortho consult -Tramadol 50mg PO PRN
[2018-06-15] MEDS ORDERED: PANTOPRAZOLE SODIUM 40 MG VIAL ONE (03:53)
[2018-06-15] MEDS: HEPARIN NA (PORCINE) 5,000 UNITS/ML 1ML VIAL SQ SCH ×3 (06:17→21:04)
[2018-06-15] MEDS ORDERED: NIFEdipine E.R 60 MG TABLET (UD) PO SCH (10:00)
[2018-06-15] MEDS ORDERED: MUPIROCIN 2% TOPICAL OINTMENT FOR DECOLONIZATION NS SCH (10:00)
[2018-06-15 10:31] LABS: HEMATOCRIT 36.1 % (32.4-45.2); HEMOGLOBIN 12.2 GM/dL (10.7-15.3); MCH 29.9 pg (25.7-33.7); MCHC 33.7 g/dl (32.0-36.0); MEAN CELL VOLUME 88.9 fl (80-96); MEAN PLT VOLUME 5.9 fl (7.5-11.1); PLATELET COUNT 702 K/MM3 (134-434); RBC 4.06 M/mm3 (3.60-5.2); RDW 14.5 % (11.6-15.6); WHITE BLOOD COUNT 12.2 K/mm3 (4.0-10.0)
[2018-06-15] MEDS ORDERED: oxyCODONE HCL 5 MG TABLET PO PRN (10:58)
--- NOTE | 2018-06-15 11:16 | PN ---
Progress Note (short form) - Note Progress Note: Has severe pain in left knee Unable to ambulate-- used to walk with rolator no injuries recently Vital Signs - 24 hr 06/14/18 06/14/18 06/14/18 12:01 15:28 17:45 Temperature 98.0 F 97.8 F Pulse Rate 100 H 68 Pulse Rate [ 74 Left Apical] Respiratory 16 16 Rate Blood Pressure 186/102 Blood Pressure 214/130 [Left Arm] O2 Sat by Pulse 100 98 96 Oximetry (%) 06/14/18 06/14/18 06/14/18 18:56 19:05 23:58 Temperature 97.9 F 98.2 F Pulse Rate Pulse Rate [ 121 H 90 84 Left Apical] Respiratory 16 23 22 Rate Blood Pressure Blood Pressure 197/121 173/126 206/106 [Left Arm] O2 Sat by Pulse 96 97 99 Oximetry (%) 06/15/18 06/15/18 06/15/18 01:00 01:15 02:00 Temperature 98.1 F Pulse Rate 89 Pulse Rate [ 90 Left Apical] Respiratory 23 Rate Blood Pressure 203/106 Blood Pressure 208/116 203/106 [Left Arm] O2 Sat by Pulse 98 Oximetry (%) 06/15/18 06/15/18 06/15/18 02:57 04:00 06:16 Temperature 98.1 F 98.0 F 98.4 F Pulse Rate 84 Pulse Rate [ 89 85 Left Apical] Respiratory 25 H 18 20 Rate Blood Pressure 134/67 Blood Pressure 93/56 107/56 [Left Arm] O2 Sat by Pulse 100 100 Oximetry (%) 06/15/18 06/15/18 07:45 08:00 Temperature 97.8 F 97.8 F Pulse Rate 91 H 91 H Pulse Rate [ Left Apical] Respiratory 18 18 Rate Blood Pressure 117/62 117/62 Blood Pressure [Left Arm] O2 Sat by Pulse Oximetry (%) Current Medications Generic Name Dose Route Start Last Admin Trade Name Freq PRN Reason Stop Dose Admin Atorvastatin Calcium 20 mg 06/15/18 22:00 Lipitor - PO HS DAVID Heparin Sodium (Porcine) 5,000 unit 06/15/18 06:00 06/15/18 06:17 Heparin - SQ Not Given TID DAVID Isosorbide Mononitrate 30 mg 06/16/18 10:00 Imdur - PO DAILY DAVID Levothyroxine Sodium 50 mcg 06/16/18 10:00 Synthroid - PO DAILY [facility] Metoprolol Tartrate 50 mg 06/16/18 10:00 Lopressor - PO DAILY DAVID Oxycodone HCl 10 mg 06/15/18 10:58 Roxicodone - PO Q4H PRN PAIN LEVEL 6-10 Pantoprazole Sodium 40 mg 06/16/18 10:00 Protonix - PO DAILY DAVID Prednisone 5 mg 06/16/18 10:00 Deltasone - PO DAILY [facility] Tramadol HCl 50 mg 06/15/18 02:31 06/15/18 07:29 Ultram - PO 50 mg Q8H PRN Administration PAIN LEVEL 6-10 Laboratory Results - last 24 hr 06/14/18 06/14/18 06/14/18 20:35 20:35 20:35 WBC 12.5 H RBC 4.38 Hgb 13.3 Hct 39.7 D MCV 90.6 MCH 30.3 MCHC 33.4 RDW 14.9 D Plt Count 712 H MPV 6.0 L Absolute Neuts (auto) 10.8 H Neutrophils % 86.0 H Lymphocytes % 6.2 L D Monocytes % 6.1 Eosinophils % 0.9 Basophils % 0.8 Nucleated RBC % 0 D-Dimer VBG pH 7.39 POC VBG pCO2 44.4 POC VBG pO2 46.9 Mixed VBG HCO3 26.1 H Sodium 136 Potassium 3.3 L Chloride 99 Carbon Dioxide 26 Anion Gap 11 BUN 7 Creatinine 0.6 Creat Clearance w eGFR > 60 Random Glucose 159 H Hemoglobin A1c % Calcium 9.0 Total Bilirubin 0.2 AST 14 L ALT 12 Alkaline Phosphatase 118 H Creatine Kinase 71 Troponin I 0.04 Total Protein 8.5 H Albumin 3.3 L 06/14/18 06/15/18 06/15/18 21:33 09:30 09:30 WBC 12.2 H RBC 4.06 Hgb 12.2 Hct 36.1 MCV 88.9 MCH 29.9 MCHC 33.7 RDW 14.5 Plt Count 702 H MPV 5.9 L Absolute Neuts (auto) Neutrophils % Lymphocytes % Monocytes % Eosinophils % Basophils % Nucleated RBC % D-Dimer 2044 H VBG pH POC VBG pCO2 POC VBG pO2 Mixed VBG HCO3 Sodium Potassium Chloride Carbon Dioxide Anion Gap BUN Creatinine Creat Clearance w eGFR Random Glucose Hemoglobin A1c % 5.8 Calcium Total Bilirubin AST ALT Alkaline Phosphatase Creatine Kinase Troponin I Total Protein Albumin S1 S2 RRR lungs clear Abd- soft, Nt No edema left knee hyperflexed calcified deposits to thighs PLAN -Ortho eval - xray noted - may need cortisone injection to knee - PT eval -- pain control Problem List - Problems (1) Asymptomatic hypertensive urgency Assessment/Plan: due to pain in left knee- BP better Code(s): I16.0 - HYPERTENSIVE URGENCY (2) Knee pain, left Code(s): M25.562 - PAIN IN LEFT KNEE Qualifiers: Chronicity: acute Qualified Code(s): M25.562 - Pain in left knee (3) Arthritis Code(s): M19.90 - UNSPECIFIED OSTEOARTHRITIS, UNSPECIFIED SITE
[2018-06-15 11:17] LABS: CHLORIDE 100 mmol/L (98-107); POTASSIUM 3.5 mmol/L (3.5-5.1); SODIUM 136 mmol/L (136-145)
[2018-06-15 11:43] LABS: ALBUMIN 3.1 g/dl (3.4-5.0); ALK PHOS 106 U/L (45-117); ANION GAP 16 MMOL/L (8-16); BILIRUBIN,TOTAL 0.3 mg/dL (0.2-1.0); BLOOD UREA NITROGEN 15 mg/dL (7-18); CALCIUM 8.7 mg/dL (8.5-10.1); CO2 20 mmol/L (21-32); CREATININE 0.8 mg/dL (0.55-1.02); GLUCOSE,RANDOM 136 mg/dL (74-106); PHOSPHOROUS 4.2 mg/dL (2.5-4.9); SGOT/AST 13 U/L (15-37); SGPT/ALT 11 U/L (12-78); TOT PROT 7.6 g/dl (6.4-8.2)
--- NOTE | 2018-06-15 14:33 | PN ---
Progress Note (short form) - Note Progress Note: Pt seen and examined. She is an 88 year old F pt with a 4 week h/o "severe" left knee pain. Denies previous pain, denies any traumatic event. She states she has kept it in a flexed position for 4 weeks. Cannot ambulate bc of pain. No recent illnesses or infections. PE Left knee held is a hyperflexed position No swelling No signs of infection: not hot, not red + tender globally, non specific Xrays Show no acute bony pathology, no fractures, no dislocations + mild-moderate OA Imp 4 weeks of "severe" left knee pain with a very benign physical exam Rec I extended the knee into full flexion. The hyperflexion position may have been a secondary cause of her pain. I rec an injection of cortisone and lidocaine, I ordered it to the floor, will give Saturday No knee brace needed yet. She should do P.T., WBAT left leg
[2018-06-15 21:01] LABS: URINE APPEARANCE CLOUDY; URINE BILIRUBIN NEGATIVE (<2.0 mg/dL); URINE COLOR AMBER; URINE GLUCOSE (UA) NEGATIVE (NEGATIVE); URINE KETONE NEGATIVE (NEGATIVE); URINE LEUK ESTERASE NEGATIVE (NEGATIVE); URINE NITRITE NEGATIVE (NEGATIVE); URINE UROBILINOGEN NEGATIVE mg/dL (0.2-1.0)
[2018-06-15] MEDS: oxyCODONE HCL 5 MG TABLET PO PRN (21:04)
[2018-06-15] MEDS: ATORVASTATIN CA 20 MG TABLET (FP) PO SCH (21:05)
[2018-06-15 21:06] LABS: URINE PROTEIN 2+ (NEGATIVE)
[2018-06-15 21:08] LABS: EPI CELLS RARE /HPF (FEW); URINE MUCUS RARE
[2018-06-15] MEDS ORDERED: CHLORHEXIDINE GLUCONATE 4% CLEANSER FOR DECOLONIZATION TP SCH (22:00)
[2018-06-16] MEDS ORDERED: MELATONIN 5 MG TABLETS PO ONE (00:06)
[2018-06-16] MEDS: oxyCODONE HCL 5 MG TABLET PO PRN ×5 (01:43→22:59)
[2018-06-16] MEDS ORDERED: ARIPiprazole 2 MG TABLET PO ONE (03:06)
[2018-06-16] MEDS: HEPARIN NA (PORCINE) 5,000 UNITS/ML 1ML VIAL SQ SCH ×3 (06:00→21:06)
[2018-06-16] MEDS: METOPROLOL TARTRATE 50 MG TABLET (FP) PO SCH (09:36)
[2018-06-16] MEDS: PANTOPRAZOLE 40 MG TABLET (FP) PO SCH (09:37)
[2018-06-16] MEDS: LEVOTHYROXINE NA 50 MCG TABLET (FP) PO SCH (09:37)
[2018-06-16] MEDS: predniSONE 5 MG TABLET (UD) PO SCH (09:37)
[2018-06-16] MEDS: ISOSORBIDE MONONITRATE 30 MG TAB.SR.24H (FP) PO SCH (09:37)
--- NOTE | 2018-06-16 10:38 | EKG ---
Test Reason : Blood Pressure : / mmHG Vent. Rate : 095 BPM Atrial Rate : 095 BPM P-R Int : 148 ms QRS Dur : 142 ms QT Int : 420 ms P-R-T Axes : 073 -68 017 degrees QTc Int : 527 ms NORMAL SINUS RHYTHM RIGHT BUNDLE BRANCH BLOCK LEFT ANTERIOR FASCICULAR BLOCK BIFASCICULAR BLOCK SEPTAL INFARCT , AGE UNDETERMINED ABNORMAL ECG WHEN COMPARED WITH ECG OF 06-JUN-2018 10:11, NO SIGNIFICANT CHANGE WAS FOUND Confirmed by MICHELLE ROBINS MD ([id number]) on 06/16/2018 10:38:23 AM Referred By: Confirmed By:MICHELLE ROBINS MD
[2018-06-16] MEDS ORDERED: methylPREDNISolone ACET (DEPO) 80 MG/1 ML VIAL IAR ONE (10:45)
[2018-06-16] MEDS ORDERED: LIDOCAINE HCL 2% (20ML MULTI-DOSE VIAL) NR ONE (10:45)
[2018-06-16] MEDS ORDERED: LIDOCAINE HCL 1%, 10 MG/ML (50 mL VIAL) SQ ONE (10:45)
--- NOTE | 2018-06-16 10:49 | PN ---
Progress Note (short form) - Note Progress Note: pt seen/ examined chart reviewed c/c - pain in left knee just got medrol injection- left knee Vital Signs Temp 98.4 F 06/16/18 06:00 Pulse 101 H 06/16/18 06:00 Resp 18 06/16/18 06:00 BP 122/64 06/16/18 06:00 Pulse Ox 97 06/15/18 21:00 Intake & Output 06/15/18 06/15/18 06/16/18 11:59 23:59 11:59 Intake Total 240 360 Balance 240 360 Weight 90 lb 1.6 oz Intake: Oral 240 360 Other: Voiding Method Incontinent Incontinent Diaper # Unmeasured Voids Void 1 2 1 Bowel Movement No No Height 5 ft 4 in Body Mass Index (BMI) 15.4 Weight Measurement Method Patient Lift Scale Active Medications Atorvastatin Calcium (Lipitor -) 20 mg PO HS [facility] Last Admin: 06/15/18 21:05 Dose: 20 mg Heparin Sodium (Porcine) (Heparin -) 5,000 unit SQ TID [facility] Last Admin: 06/16/18 06:00 Dose: Not Given Isosorbide Mononitrate (Imdur -) 30 mg PO DAILY [facility] Last Admin: 06/16/18 09:37 Dose: 30 mg Levothyroxine Sodium (Synthroid -) 50 mcg PO DAILY [facility] Last Admin: 06/16/18 09:37 Dose: 50 mcg Metoprolol Tartrate (Lopressor -) 50 mg PO DAILY [facility] Last Admin: 06/16/18 09:36 Dose: 50 mg Oxycodone HCl (Roxicodone -) 5 mg PO Q4H PRN PRN Reason: PAIN LEVEL 6-10 Last Admin: 06/16/18 09:37 Dose: 5 mg Pantoprazole Sodium (Protonix -) 40 mg PO DAILY [facility] Last Admin: 06/16/18 09:37 Dose: 40 mg Prednisone (Deltasone -) 5 mg PO DAILY [facility] Last Admin: 06/16/18 09:37 Dose: 5 mg CBC, BMP 06/15/18 09:30 06/15/18 09:30 Physical S1 S2 RRR lungs clear Abd- soft, Nt No edema left knee hyperflexed-- flattened PLAN -depo injection - PT eval -- pain control - discussed with nursing staff - may need str - anticipate d/c tomorrow - will follow Problem List - Problems (1) Asymptomatic hypertensive urgency Assessment/Plan: due to pain in left knee- BP better Code(s): I16.0 - HYPERTENSIVE URGENCY (2) Knee pain, left Code(s): M25.562 - PAIN IN LEFT KNEE Qualifiers: Chronicity: acute Qualified Code(s): M25.562 - Pain in left knee (3) Arthritis Code(s): M19.90 - UNSPECIFIED OSTEOARTHRITIS, UNSPECIFIED SITE
--- NOTE | 2018-06-16 11:08 | PN ---
Progress Note (short form) - Note Progress Note: Ortho Pt seen and examined c/o left knee pain + swelling, + ttp, decr rom, nvi a/p consent obtained, under sterile technique, lido/depo injection was given, injection tolerated well inj will take 3-4 days to take effect PT eval ROM exercises pain control will follow d/w Dr. [place]
[2018-06-16] MEDS: ATORVASTATIN CA 20 MG TABLET (FP) PO SCH (21:06)
[2018-06-17] MEDS: HEPARIN NA (PORCINE) 5,000 UNITS/ML 1ML VIAL SQ SCH (05:49)
[2018-06-17] MEDS: oxyCODONE HCL 5 MG TABLET PO PRN ×4 (07:07→21:06)
[2018-06-17] MEDS: PANTOPRAZOLE 40 MG TABLET (FP) PO SCH (09:26)
[2018-06-17] MEDS: METOPROLOL TARTRATE 50 MG TABLET (FP) PO SCH (09:27)
[2018-06-17] MEDS: ISOSORBIDE MONONITRATE 30 MG TAB.SR.24H (FP) PO SCH (09:27)
[2018-06-17] MEDS: LEVOTHYROXINE NA 50 MCG TABLET (FP) PO SCH (09:27)
[2018-06-17] MEDS: predniSONE 5 MG TABLET (UD) PO SCH (09:27)
[2018-06-17 10:16] LABS: BASO % 0.7 % (0-2.0); EOS % 0.7 % (0-4.5); HEMATOCRIT 34.6 % (32.4-45.2); HEMOGLOBIN 11.4 GM/dL (10.7-15.3); LYMPH % 11.9 % (8-40); MCH 29.5 pg (25.7-33.7); MCHC 32.9 g/dl (32.0-36.0); MEAN CELL VOLUME 89.8 fl (80-96); MEAN PLT VOLUME 5.9 fl (7.5-11.1); MONO % 9.3 % (3.8-10.2); NEUT % 77.4 % (42.8-82.8); PLATELET COUNT 613 K/MM3 (134-434); RBC 3.85 M/mm3 (3.60-5.2); RDW 14.9 % (11.6-15.6); WHITE BLOOD COUNT 7.9 K/mm3 (4.0-10.0)
[2018-06-17] MEDS ORDERED: MAG HYDROX/AL HYDROX/SIMETH 30 ML UNIT-DOSE CUP PO ONE (10:30)
[2018-06-17 10:45] LABS: ANION GAP 11 MMOL/L (8-16); BILIRUBIN,TOTAL 0.3 mg/dL (0.2-1.0); BLOOD UREA NITROGEN 13 mg/dL (7-18); CALCIUM 9.2 mg/dL (8.5-10.1); CHLORIDE 101 mmol/L (98-107); CO2 24 mmol/L (21-32); CREATININE 0.6 mg/dL (0.55-1.02); GLUCOSE,RANDOM 118 mg/dL (74-106); MAGNESIUM 2.3 mg/dL (1.8-2.4); PHOSPHOROUS 2.8 mg/dL (2.5-4.9); POTASSIUM 3.3 mmol/L (3.5-5.1); SGOT/AST 18 U/L (15-37); SGPT/ALT 15 U/L (12-78); SODIUM 136 mmol/L (136-145); TOT PROT 7.3 g/dl (6.4-8.2)
[2018-06-17] MEDS ORDERED: ACETAMINOPHEN 1000 MG/100 ML VIAL (NON FORMULARY) IVPB ONE (10:45)
[2018-06-17 10:49] LABS: ALK PHOS 99 U/L (45-117)
[2018-06-17] MEDS ORDERED: HEPARIN NA (PORCINE) 5,000 UNITS/ML 1ML VIAL IVPUSH PRN ×3 (11:16→12:12)
[2018-06-17 11:26] LABS: N-TERMINAL BNP 962.87 pg/ml (5-450)
--- NOTE | 2018-06-17 11:29 | RAPID ---
<Jose Haile - Last Filed: 06/17/18 11:20> Physical Examination Vital Signs: Vital Signs Temperature 98.9 F 06/17/18 09:30 Pulse Rate 133 H 06/17/18 09:30 Respiratory Rate 19 06/17/18 09:30 Blood Pressure 138/76 06/17/18 09:30 O2 Sat by Pulse Oximetry (%) 100 06/16/18 21:00 Labs: CBC, BMP 06/17/18 09:50 06/17/18 09:50 Rapid Response - Rapid Response Assessment: Rapid Response called at 9:31 this AM Arrived to find patient complaining of chest pain which she states is similar to her chronic GERD symptoms. Pt initially admitted with knee pain which she says is severe, she received steroid injection yesterday. Denied pressure, SOB, Nausea, Vomiting. Exam: Vitals on arrival: BP 128/60, HR 130, O2 95% on RA In no acute distress, awake and responsive Tachycardic, regular rythm, S1S2 Lungs CTA Abdomen soft nontender Left knee swelling and tenderness on palpation and motion A/P -Tachycardia could be induced by knee and GERD pain, r/o ACS -CBC, CMP, Mg, Phos, Cardiac Profile, BNP, EKG -EKG noted, Sinus tachycardia, no ST changes compared with previous -Pt on Lopressor PO given immediately after vitals before RR. -CTA chest stat for PE r/o, will follow results -Tx to Telemetry -Case discussed with Primary, Dr. Godwin HR improved to 80s. Note Tropin 1.02 Cardiology consulted and case discussed Increase Lipitor to 80 mg Daily Will see patient in telemetry <Shanice Garcia - Last Filed: 06/17/18 12:01> Rapid Response - Rapid Response Assessment: Patient reported having breakfast and had some 'chest burning' similar to her prior episodes of GERD. Denied any palpitations, chest pressure, dyspnea, dizziness, arm or jaw or back pain. But reported persistent left knee pain and discomfort from the same. HR 120s, SBP 120s. EKG done, with LVH, sinus tach, known RBBB/LAFB, with strain pattern, no ST elevations noted. AM metoprolol given. Tylenol 1 g IV and maalox x1 given. CTA chest and labs ordered. Trop noted to be 1.02. Patient was re-evaluated, chest pain free. SBP 100s and HR 80s, looked comfortable. Case discussed in detail with Dr. Godwin and further care transferred to him EKG, troponin reviewed in detail with Dr. Hi, advised lipitor 80 mg x1, ordered. Patient reports recent dark stools with ongoing outpatient GI work up, updated Dr. Hi on the same. Patient transferred to telemetry and further care endorsed to Dr. Godwin. Total critical care time spent at bedside 35 min. Total time spent including patient visit, critical care management, workup, discussion with primary team, cardiology, nursing and co-ordination of care 75 min. Critical Care Total Critical Care Time (in minutes): 35 (total patient care time 75 min) Critical Care Statement: The care of this patient involved high complexity decision making to prevent further life threatening deterioration of the patient 's condition and/or to evaluate & treat vital organ system(s) failure or risk of failure.
[2018-06-17] MEDS ORDERED: HEPARIN SOD,PORK IN 0.45% NACL 25,000 UNIT/500 ML INFUS.BAG IVPB SCH (11:30)
[2018-06-17] MEDS: ATORVASTATIN CA 80 MG TABLET (FP) PO SCH (11:47)
--- NOTE | 2018-06-17 11:56 | PN ---
Progress Note (short form) - Note Progress Note: chest pain this AM- rapid respoinse called transferred to telemetry currently denies chest pain Vital Signs - 24 hr 06/16/18 06/17/18 06/17/18 21:00 06:00 09:30 Temperature 98.4 F 98.9 F Pulse Rate 94 H 133 H Respiratory 20 20 19 Rate Blood Pressure 141/80 138/76 O2 Sat by Pulse 100 Oximetry (%) 06/17/18 06/17/18 06/17/18 11:29 14:00 15:00 Temperature 98.2 F 98.5 F Pulse Rate 82 91 H Respiratory 18 18 Rate Blood Pressure 105/60 125/79 O2 Sat by Pulse 98 Oximetry (%) Current Medications Generic Name Dose Route Start Last Admin Trade Name Freq PRN Reason Stop Dose Admin Atorvastatin Calcium 80 mg 06/17/18 11:15 06/17/18 11:47 Lipitor - PO 80 mg HS DAVID Administration Heparin Sodium (Porcine) 5,000 unit 06/17/18 12:12 Heparin - IVPUSH PRN PRN Heparin Heparin Sodium/Dextrose 25,000 units in 500 mls @ 16 mls/hr 06/17/18 12:15 12:30 Heparin Infusion - IVPB 800 units/hr TITR DAVID 16 mls/hr Administration Protocol 800 UNITS/HR Isosorbide Mononitrate 30 mg 06/16/18 10:00 06/17/18 09:27 Imdur - PO 30 mg DAILY DAVID Administration Levothyroxine Sodium 50 mcg 06/16/18 10:00 06/17/18 09:27 Synthroid - PO 50 mcg DAILY DAVID Administration Metoprolol Tartrate 25 mg 06/17/18 22:00 Lopressor - PO BID DAVID Oxycodone HCl 5 mg 06/15/18 11:29 06/17/18 15:40 Roxicodone - PO 5 mg Q4H PRN Administration PAIN LEVEL 6-10 Pantoprazole Sodium 40 mg 06/16/18 10:00 06/17/18 09:26 Protonix - PO 40 mg DAILY DAVID Administration Prednisone 5 mg 06/16/18 10:00 06/17/18 09:27 Deltasone - PO 5 mg DAILY DAVID Administration Laboratory Results - last 24 hr 06/17/18 06/17/18 06/17/18 09:20 09:50 09:50 WBC 7.9 RBC 3.85 Hgb 11.4 Hct 34.6 MCV 89.8 MCH 29.5 MCHC 32.9 RDW 14.9 Plt Count 613 H MPV 5.9 L Absolute Neuts (auto) 6.1 Neutrophils % 77.4 Lymphocytes % 11.9 D Monocytes % 9.3 Eosinophils % 0.7 Basophils % 0.7 Nucleated RBC % 0 Sodium 136 Potassium 3.3 L Chloride 101 Carbon Dioxide 24 Anion Gap 11 BUN 13 Creatinine 0.6 Creat Clearance w eGFR > 60 Random Glucose 118 H Calcium 9.2 Phosphorus 2.8 Magnesium 2.3 Total Bilirubin 0.3 AST 18 ALT 15 Alkaline Phosphatase 99 Creatine Kinase 204 H Creatine Kinase Index 1.4 CK-MB (CK-2) 2.94 Troponin I 1.02 H* B-Natriuretic Peptide 959.21 H 962.87 H Total Protein 7.3 Albumin 3.0 L 06/17/18 06/17/18 09:50 15:30 WBC RBC Hgb Hct MCV MCH MCHC RDW Plt Count MPV Absolute Neuts (auto) Neutrophils % Lymphocytes % Monocytes % Eosinophils % Basophils % Nucleated RBC % Sodium Potassium Chloride Carbon Dioxide Anion Gap BUN Creatinine Creat Clearance w eGFR Random Glucose Calcium Phosphorus Magnesium Total Bilirubin AST ALT Alkaline Phosphatase Creatine Kinase Cancelled 164 Creatine Kinase Index 1.4 CK-MB (CK-2) 2.40 Troponin I Cancelled 0.95 H* B-Natriuretic Peptide Total Protein Albumin S1 S2 RRR lungs clear Abd- soft, Nt No edema left knee hyperflexed calcified deposits to thighs PLAN -check serial cardiac enzymes-- troponin is elevated- start Heparin drip - cardiology eval - Echo, Telemetry -- pain control- received cortisone injection yesterday Problem List - Problems (1) Asymptomatic hypertensive urgency Code(s): I16.0 - HYPERTENSIVE URGENCY (2) Knee pain, left Code(s): M25.562 - PAIN IN LEFT KNEE Qualifiers: Chronicity: acute Qualified Code(s): M25.562 - Pain in left knee (3) Arthritis Code(s): M19.90 - UNSPECIFIED OSTEOARTHRITIS, UNSPECIFIED SITE (4) Chest pain Code(s): R07.9 - CHEST PAIN, UNSPECIFIED (5) Chest pain Code(s): R07.9 - CHEST PAIN, UNSPECIFIED (6) Elevated troponin I level Code(s): R74.8 - ABNORMAL LEVELS OF OTHER SERUM ENZYMES
[2018-06-17] MEDS ORDERED: POTASSIUM CHLORIDE TABS 20 MEQ TABLET.ER (FP) PO ONE ×2 (12:24→18:00)
--- NOTE | 2018-06-17 12:27 | PN ---
Progress Note (short form) - Note Progress Note: Ortho Pt seen and examined c/o left knee pain- no improvement yet from the injection. Pt also keeps flexing her knee and not keeping it in extension + swelling, + ttp, decr rom, nvi a/p Instructed pt to keep knee extended not flexed Pt continues to ignore this PT eval wbat Injection shoulder take effect in the next 2-3 days d/w Dr. Madera
[2018-06-17] MEDS: HEPARIN INFUSION - 25,000 UNITS/500 ML INFUS.BAG IVPB SCH (12:30)
--- NOTE | 2018-06-17 12:57 | CON.CARD ---
Consult Consult Specialty:: cardiology Reason for Consultation:: tachycardia - History of Present Illness Chief Complaint: A&Ox3; denies chest pain or dyspnea; c/o mld left knee pain History of Present Illness: 88 y/o afebrile black female with PMH OA with left hip replacement in 10/2017 for [id number] OA, HLD, CAD (on plavix) c/o worsened left knee pain for over 1 week. HISTORY OF PRESENT ILLNESS: The patient states 8 days ago she started having left knee pain. She was seen here, had a negative left knee xray and a doppler that was negative for DVT. She was discharged. She states her left knee pain and swelling has gotten worse and she cannot extend her left knee. She states she can't walk. She denies fall, trauma, redness, streaking, fever, chills. PMHx: CAD--> FELIPA RCA in 2010;; FELIPA m LCX 03/18; negqative stress MIBI 08/2012 Bifascicular block COPD HTN Hyperlipidemia; hypothyroidism; PAD s/p angiogram showing 30-40% diffuse disease 03/2012 RA/OA TIA 06/2012; treated at [facility] - History Source History Provided By: Patient, Medical Record Limitations to Obtaining History: No Limitations - Past Medical History Cardio/Vascular: Yes: CAD, HTN, Hyperlipdemia Pulmonary: Yes: COPD Gastrointestinal: Yes: Other (chronic biliary dilitation, dilitation common intrahepatic, hx colitis) Hepatobiliary: Yes: Other (MRCP--dilated intrahepatic ducts) Renal/: Yes: Other (hyponatremia) Reproductive: Yes: Postmenopausal ...: No Musculoskeletal: Yes: Osteoarthritis (thigh pain , right THR), Other ( calicifications both thighs-- chronic per pt -- due to ?injection) Rheumatology: Yes: Rheumatoid Arthritis - Past Surgical History Past Surgical History: Yes: Appendectomy, Cholecystectomy, Joint Replacement (R THR), Stent - Alcohol/Substance Use Hx Alcohol Use: No - Smoking History Smoking history: Former smoker Have you smoked in the past 12 months: No Aproximately how many cigarettes per day: 2 If you are a former smoker, when did you quit?: 1 year ago - Social History Usual Living Arrangement: Alone Occupation: retired clinical secretary History of Recent Travel: No Home Medications - Allergies Allergies/Adverse Reactions: Allergies Allergy/AdvReac Type Severity Reaction Status Date / Time lactose Allergy Mild Verified 06/06/18 09:59 meperidine HCl [From Demerol] Allergy Verified 06/06/18 09:59 TAPE AdvReac Intermediate Uncoded 06/06/18 09:59 - Home Medications Home Medications: Ambulatory Orders Atorvastatin Calcium 20 mg PO HS 06/06/18 Clopidogrel Bisulfate [Plavix] 75 mg PO DAILY 06/06/18 Esomeprazole Magnesium 40 mg PO DAILY 06/06/18 Folic Acid 1 mg PO DAILY 06/06/18 Isosorbide Mononitrate [Isosorbide Mononitrate ER] 30 mg PO DAILY 06/06/18 Levothyroxine [Synthroid -] 50 mcg PO DAILY 06/06/18 Metoprolol Tartrate 50 mg PO DAILY 06/06/18 Multivitamins [Tab-A-Vit -] 1 tab PO DAILY 06/06/18 Prednisone 5 mg PO DAILY 06/06/18 Tramadol HCl 25 mg PO QID PRN #20 tablet MDD 4 06/06/18 Tramadol HCl 25 mg PO QID PRN #10 tablet MDD 4 06/14/18 Family Disease History - Family Disease History Family Disease History: Heart Disease: Father, Mother, Other: Daughter (healthy and living) Review of Systems - Review of Systems Constitutional: reports: Weakness Eyes: reports: No Symptoms HENT: reports: No Symptoms Neck: reports: No Symptoms Cardiovascular: reports: No Symptoms Respiratory: reports: No Symptoms Gastrointestinal: reports: No Symptoms Genitourinary: reports: No Symptoms Breasts: reports: No Symptoms Reported Musculoskeletal: reports: Muscle Weakness Integumentary: reports: No Symptoms Endocrine: reports: No Symptoms Hematology/Lymphatic: reports: No Symptoms Psychiatric: reports: Anxiety - Risk Factors Known Risk Factors: Yes: Age, Hypertension, Physical Inactivity, Race, Other ( CAD; PAD) Vital Signs: Vital Signs Temperature 98.2 F 06/17/18 11:29 Pulse Rate 82 06/17/18 11:29 Respiratory Rate 18 06/17/18 11:29 Blood Pressure 105/60 06/17/18 11:29 O2 Sat by Pulse Oximetry (%) 100 06/16/18 21:00 Constitutional: Yes: Anxious Eyes: Yes: WNL HENT: Yes: WNL Neck: Yes: WNL Respiratory: Yes: WNL Gastrointestinal: Yes: Soft Renal/: No: Anuria Cardiovascular: Yes: WNL JVD: No Carotid Bruit: No PMI: Non-Displaced Heart Sounds: Yes: S1, Split S2 Murmur: Yes: Systolic Murmur, Grade 2 Musculoskeletal: Yes: Muscle Pain, Muscle Weakness, Other (left knee pain) Extremities: Yes: Cool Edema: No Peripheral Pulses WNL: Yes Integumentary: Yes: Other (left thigh anerior chronic hardening (calcified lsesion "from an injection long ago").) Neurological: Yes: Alert, Oriented, Weakness Psychiatric: Yes: Other - Other Data Labs, Other Data: CBC, BMP 06/17/18 09:50 06/17/18 09:50 Troponin, BNP 06/17/18 06/17/18 09:50 09:50 Troponin I 1.02 H* Cancelled B-Natriuretic Peptide 962.87 H Troponin, BNP 06/17/18 06/17/18 09:50 09:50 Troponin I 1.02 H* Cancelled B-Natriuretic Peptide 962.87 H Abnormal Lab Results 06/17/18 06/17/18 06/17/18 09:20 09:50 09:50 Plt Count 613 H MPV 5.9 L PTT (Actin FS) Potassium 3.3 L Random Glucose 118 H Creatine Kinase 204 H Troponin I 1.02 H* B-Natriuretic Peptide 959.21 H 962.87 H Albumin 3.0 L 06/17/18 06/17/18 06/17/18 15:30 18:00 18:00 Plt Count MPV PTT (Actin FS) 80.8 H Potassium Random Glucose Creatine Kinase Troponin I 0.95 H* 0.89 H* B-Natriuretic Peptide Albumin 06/18/18 05:30 Plt Count MPV PTT (Actin FS) Potassium Random Glucose Creatine Kinase 289 H Troponin I 0.79 H* B-Natriuretic Peptide Albumin Prior Cardiac Procedures: Cardiac Catheterization, PTCA with Stent Ejection Fraction %: LVEF > or = 40 % Imaging - Results Chest X-ray: Image Reviewed EKG: Image Reviewed (NSR; RBBB; old septal infarct cannot be ruled out) Problem List - Problems (1) Elevated troponin I level Assessment/Plan: TNI 0.04 on 06/14/18->1.02 this morning. CK/MB relative index is low. Hx CAD-->coronary stent x 2 several years ago. EKG: sinus tachycardia; RBBB; (no significant changes from admission). Telemetry: now in normal sinus rhythm (pain in knee has decreaed from severe to mild). R/o NSTEMI, though other factors (CHF, uncontrolled HTN, pain) may contribute to rise in TNI. On ASA and clopidogrel; started IV heparin. Increase atorvatatin to 80 mg daily. Serial TNI and EKG; pt now on telemtry monitoring. Pain management. ECHO for LVEF, wall motion. Code(s): R74.8 - ABNORMAL LEVELS OF OTHER SERUM ENZYMES (2) Knee pain, left Assessment/Plan: pain management. XRAY shows no gross fracture. Code(s): M25.562 - PAIN IN LEFT KNEE Qualifiers: Chronicity: acute Qualified Code(s): M25.562 - Pain in left knee (3) Abnormal EKG Code(s): R94.31 - ABNORMAL ELECTROCARDIOGRAM [ECG] [EKG] (4) Dilated cbd, acquired Code(s): K83.8 - OTHER SPECIFIED DISEASES OF BILIARY TRACT (5) Elevated BP Assessment/Plan: on metoprolol; change to bid for better 24 hour coverage. Code(s): I10 - ESSENTIAL (PRIMARY) HYPERTENSION (6) Gastroenteritis Code(s): K52.9 - NONINFECTIVE GASTROENTERITIS AND COLITIS, UNSPECIFIED (7) Hypokalemia Assessment/Plan: replete ; f/u all electrolytes. Code(s): E87.6 - HYPOKALEMIA
--- NOTE | 2018-06-17 17:13 | EKG ---
Test Reason : Blood Pressure : / mmHG Vent. Rate : 123 BPM Atrial Rate : 123 BPM P-R Int : 000 ms QRS Dur : 146 ms QT Int : 350 ms P-R-T Axes : 000 -29 -24 degrees QTc Int : 501 ms SINUS TACHYCARDIA RIGHT BUNDLE BRANCH BLOCK MINIMAL VOLTAGE CRITERIA FOR LVH, MAY BE NORMAL VARIANT SEPTAL INFARCT (CITED ON OR BEFORE 14-JUN-2018) ABNORMAL ECG Confirmed by MD HUMBERTO, ANDRÉS ([id number]) on 06/17/2018 5:13:13 PM Referred By: Confirmed By:ANDRÉS PAUL MD
[2018-06-17] MEDS: METOPROLOL TARTRATE 25 MG TABLET (FP) PO SCH (21:06)
[2018-06-18] MEDS: oxyCODONE HCL 5 MG TABLET PO PRN ×4 (01:56→21:18)
[2018-06-18] MEDS: ISOSORBIDE MONONITRATE 30 MG TAB.SR.24H (FP) PO SCH (10:16)
[2018-06-18] MEDS: PANTOPRAZOLE 40 MG TABLET (FP) PO SCH (10:16)
[2018-06-18] MEDS: METOPROLOL TARTRATE 25 MG TABLET (FP) PO SCH ×2 (10:16→21:13)
[2018-06-18] MEDS: LEVOTHYROXINE NA 50 MCG TABLET (FP) PO SCH (10:16)
[2018-06-18] MEDS: predniSONE 5 MG TABLET (UD) PO SCH (10:16)
--- NOTE | 2018-06-18 11:40 | PN ---
Progress Note (short form) - Note Progress Note: no chest pain , has pain in left knee and hip no SOB Vital Signs - 24 hr Vital Signs - 24 hr 06/17/18 06/17/18 06/17/18 14:00 15:00 17:00 Temperature 98.5 F 98.4 F Pulse Rate 91 H 90 Respiratory 18 20 Rate Blood Pressure 125/79 129/69 O2 Sat by Pulse 98 Oximetry (%) 06/17/18 06/17/18 06/18/18 21:00 22:00 02:00 Temperature 98.0 F 98.8 F Pulse Rate 90 89 Respiratory 20 20 20 Rate Blood Pressure 146/68 142/68 O2 Sat by Pulse 100 Oximetry (%) 06/18/18 06/18/18 06:00 10:12 Temperature 98.7 F 98.2 F Pulse Rate 96 H 96 H Respiratory 20 20 Rate Blood Pressure 148/81 168/76 O2 Sat by Pulse Oximetry (%) Current Medications Generic Name Dose Route Start Last Admin Trade Name Freq PRN Reason Stop Dose Admin Atorvastatin Calcium 80 mg 06/17/18 11:15 06/17/18 11:47 Lipitor - PO 80 mg HS DAVID Administration Heparin Sodium (Porcine) 5,000 unit 06/17/18 12:12 Heparin - IVPUSH PRN PRN Heparin Heparin Sodium/Dextrose 25,000 units in 500 mls @ 16 mls/hr 06/17/18 12:15 12:30 Heparin Infusion - IVPB 800 units/hr TITR DAVID 16 mls/hr Administration Protocol 800 UNITS/HR Isosorbide Mononitrate 30 mg 06/16/18 10:00 06/18/18 10:16 Imdur - PO 30 mg DAILY DAVID Administration Levothyroxine Sodium 50 mcg 06/16/18 10:00 06/18/18 10:16 Synthroid - PO 50 mcg DAILY DAVID Administration Metoprolol Tartrate 25 mg 06/17/18 22:00 06/18/18 10:16 Lopressor - PO 25 mg BID DAVID Administration Oxycodone HCl 5 mg 06/15/18 11:29 06/18/18 05:50 Roxicodone - PO 5 mg Q4H PRN Administration PAIN LEVEL 6-10 Pantoprazole Sodium 40 mg 06/16/18 10:00 06/18/18 10:16 Protonix - PO 40 mg DAILY DAVID Administration Prednisone 5 mg 06/16/18 10:00 06/18/18 10:16 Deltasone - PO 5 mg DAILY DAVID Administration Laboratory Results - last 24 hr 06/17/18 06/17/18 06/17/18 09:20 15:30 18:00 PTT (Actin FS) Creatine Kinase 164 176 Creatine Kinase Index 1.4 1.3 CK-MB (CK-2) 2.40 2.31 Troponin I 0.95 H* 0.89 H* B-Natriuretic Peptide 959.21 H 06/17/18 06/18/18 18:00 05:30 PTT (Actin FS) 80.8 H Creatine Kinase 289 H Creatine Kinase Index 0.9 CK-MB (CK-2) 2.86 Troponin I 0.79 H* B-Natriuretic Peptide S1 S2 RRR lungs clear Abd- soft, Nt No edema left knee hyperflexed calcified deposits to thighs PLAN -troponin trending down - cardiology eval appreciated -echo pending -- pain control -- watch for signs of bleeding Problem List - Problems (1) Asymptomatic hypertensive urgency Code(s): I16.0 - HYPERTENSIVE URGENCY (2) Knee pain, left Code(s): M25.562 - PAIN IN LEFT KNEE Qualifiers: Chronicity: acute Qualified Code(s): M25.562 - Pain in left knee (3) Arthritis Code(s): M19.90 - UNSPECIFIED OSTEOARTHRITIS, UNSPECIFIED SITE (4) Chest pain Code(s): R07.9 - CHEST PAIN, UNSPECIFIED (5) Chest pain Code(s): R07.9 - CHEST PAIN, UNSPECIFIED (6) Elevated troponin I level Code(s): R74.8 - ABNORMAL LEVELS OF OTHER SERUM ENZYMES
--- NOTE | 2018-06-18 11:42 | PN ---
Progress Note, Physician History of Present Illness: 88 y/o afebrile black female with PMH OA with left hip replacement in 10/2017 for [id number] OA, HLD, CAD (on plavix) c/o worsened left knee pain for over 1 week. HISTORY OF PRESENT ILLNESS: The patient states 8 days ago she started having left knee pain. She was seen here, had a negative left knee xray and a doppler that was negative for DVT. She was discharged. She states her left knee pain and swelling has gotten worse and she cannot extend her left knee. She states she can't walk. She denies fall, trauma, redness, streaking, fever, chills. PMHx: CAD--> FELIPA RCA in 2010;; FELIPA m LCX 03/18; negqative stress MIBI 08/2012 Bifascicular block COPD HTN Hyperlipidemia; hypothyroidism; PAD s/p angiogram showing 30-40% diffuse disease 03/2012 RA/OA TIA 06/2012; treated at [facility] - Current Medication List Current Medications: Active Medications Atorvastatin Calcium (Lipitor -) 80 mg PO HS [facility] Last Admin: 06/17/18 11:47 Dose: 80 mg Heparin Sodium (Porcine) (Heparin -) 5,000 unit IVPUSH PRN PRN PRN Reason: Heparin Heparin Sodium/Dextrose (Heparin Infusion -) 25,000 units in 500 mls @ 16 mls/ hr IVPB TITR [facility]; Protocol Last Admin: 06/17/18 12:30 Dose: 800 units/hr, 16 mls/hr Isosorbide Mononitrate (Imdur -) 30 mg PO DAILY [facility] Last Admin: 06/18/18 10:16 Dose: 30 mg Levothyroxine Sodium (Synthroid -) 50 mcg PO DAILY [facility] Last Admin: 06/18/18 10:16 Dose: 50 mcg Metoprolol Tartrate (Lopressor -) 25 mg PO BID [facility] Last Admin: 06/18/18 10:16 Dose: 25 mg Oxycodone HCl (Roxicodone -) 5 mg PO Q4H PRN PRN Reason: PAIN LEVEL 6-10 Last Admin: 06/18/18 05:50 Dose: 5 mg Pantoprazole Sodium (Protonix -) 40 mg PO DAILY [facility] Last Admin: 06/18/18 10:16 Dose: 40 mg Prednisone (Deltasone -) 5 mg PO DAILY [facility] Last Admin: 06/18/18 10:16 Dose: 5 mg - Objective Vital Signs: Vital Signs Temperature 98.2 F 06/18/18 10:12 Pulse Rate 96 H 06/18/18 10:12 Respiratory Rate 20 06/18/18 10:12 Blood Pressure 168/76 06/18/18 10:12 O2 Sat by Pulse Oximetry (%) 100 06/17/18 21:00 Eyes: Yes: WNL, Conjunctiva Clear, EOM Intact HENT: Yes: WNL, Atraumatic, Normocephalic Neck: Yes: WNL, Supple, Trachea Midline Cardiovascular: Yes: WNL, Regular Rate and Rhythm Respiratory: Yes: WNL, Regular, CTA Bilaterally Gastrointestinal: Yes: WNL, Normal Bowel Sounds Genitourinary: Yes: WNL Musculoskeletal: Yes: WNL Extremities: Yes: WNL Edema: No Integumentary: Yes: WNL Neurological: Yes: WNL, Alert, Oriented ...Motor Strength: WNL Psychiatric: Yes: WNL Labs: CBC, BMP 06/17/18 09:50 06/17/18 09:50 Assessment/Plan - Problems (1) Elevated troponin I level Assessment/Plan: TNI 0.04 on 06/14/18->1.02 - 0.79 this morning. CK/MB relative index is low. Hx CAD-->coronary stent x 2 several years ago. EKG: sinus tachycardia; RBBB; (no significant changes from admission). Telemetry: now in normal sinus rhythm (pain in knee has decreaed from severe to mild). R/o NSTEMI, though other factors (CHF, uncontrolled HTN, pain) may contribute to rise in TNI. On ASA and clopidogrel; started IV heparin. Increase atorvatatin to 80 mg daily. Serial TNI and EKG; pt now on telemtry monitoring. Pain management. ECHO for LVEF, wall motion. Code(s): R74.8 - ABNORMAL LEVELS OF OTHER SERUM ENZYMES (2) Knee pain, left Assessment/Plan: pain management. XRAY shows no gross fracture. Code(s): M25.562 - PAIN IN LEFT KNEE Qualifiers: Chronicity: acute Qualified Code(s): M25.562 - Pain in left knee (3) Abnormal EKG Code(s): R94.31 - ABNORMAL ELECTROCARDIOGRAM [ECG] [EKG] (4) Dilated cbd, acquired Code(s): K83.8 - OTHER SPECIFIED DISEASES OF BILIARY TRACT (5) Elevated BP Assessment/Plan: on metoprolol; change to bid for better 24 hour coverage. Code(s): I10 - ESSENTIAL (PRIMARY) HYPERTENSION (6) Gastroenteritis Code(s): K52.9 - NONINFECTIVE GASTROENTERITIS AND COLITIS, UNSPECIFIED (7) Hypokalemia Assessment/Plan: replete ; f/u all electrolytes. Code(s): E87.6 - HYPOKALEMIA
--- NOTE | 2018-06-18 12:03 | PN ---
Progress Note (short form) - Note Progress Note: Ortho Pt seen and examined c/o left knee pain- no improvement yet from the injection. Pt also keeps flexing her knee and not keeping it in extension + swelling, + ttp, decr rom, nvi a/p Instructed pt to keep knee extended not flexed Pt continues to ignore this PT eval wbat Injection should take effect in the next 2-3 days d/w Dr. Madera
[2018-06-18] MEDS: HEPARIN INFUSION - 25,000 UNITS/500 ML INFUS.BAG IVPB SCH (14:15)
[2018-06-18] MEDS: ATORVASTATIN CA 80 MG TABLET (FP) PO SCH (21:13)
[2018-06-19 06:28] LABS: HEMATOCRIT 34.5 % (32.4-45.2); HEMOGLOBIN 11.3 GM/dL (10.7-15.3); MCH 29.5 pg (25.7-33.7); MCHC 32.7 g/dl (32.0-36.0); MEAN CELL VOLUME 90.4 fl (80-96); MEAN PLT VOLUME 6.2 fl (7.5-11.1); PLATELET COUNT 560 K/MM3 (134-434); RBC 3.81 M/mm3 (3.60-5.2); RDW 14.8 % (11.6-15.6); WHITE BLOOD COUNT 9.6 K/mm3 (4.0-10.0)
[2018-06-19] MEDS: oxyCODONE HCL 5 MG TABLET PO PRN ×3 (06:32→19:51)
[2018-06-19 06:56] LABS: ANION GAP 8 MMOL/L (8-16); BLOOD UREA NITROGEN 8 mg/dL (7-18); CALCIUM 8.8 mg/dL (8.5-10.1); CHLORIDE 104 mmol/L (98-107); CO2 25 mmol/L (21-32); CREATININE 0.6 mg/dL (0.55-1.02); GLUCOSE,RANDOM 97 mg/dL (74-106); POTASSIUM 4.6 mmol/L (3.5-5.1); SODIUM 137 mmol/L (136-145)
--- NOTE | 2018-06-19 07:23 | PN ---
Progress Note, Physician Chief Complaint: Pt A&Ox3; still c/o left knee warmth and pain with even slight movement No cheswt pain or dyspnea. History of Present Illness: 88 y/o afebrile black female with PMH OA with left hip replacement in 10/2017 for [id number] OA, HLD, CAD (on plavix) c/o worsened left knee pain for over 1 week. HISTORY OF PRESENT ILLNESS: The patient states 8 days ago she started having left knee pain. She was seen here, had a negative left knee xray and a doppler that was negative for DVT. She was discharged. She states her left knee pain and swelling has gotten worse and she cannot extend her left knee. She states she can't walk. She denies fall, trauma, redness, streaking, fever, chills. PMHx: CAD--> FELIPA RCA in 2010;; FELIPA m LCX 03/18; negqative stress MIBI 08/2012 Bifascicular block COPD HTN Hyperlipidemia; hypothyroidism; PAD s/p angiogram showing 30-40% diffuse disease 03/2012 RA/OA TIA 06/2012; treated at [facility] - Current Medication List Current Medications: Active Medications Atorvastatin Calcium (Lipitor -) 80 mg PO HS [facility] Last Admin: 06/18/18 21:13 Dose: 80 mg Heparin Sodium (Porcine) (Heparin -) 5,000 unit IVPUSH PRN PRN PRN Reason: Heparin Heparin Sodium/Dextrose (Heparin Infusion -) 25,000 units in 500 mls @ 16 mls/ hr IVPB TITR [facility]; Protocol Last Admin: 06/18/18 14:15 Dose: 750 units/hr, 15 mls/hr Isosorbide Mononitrate (Imdur -) 30 mg PO DAILY [facility] Last Admin: 06/18/18 10:16 Dose: 30 mg Levothyroxine Sodium (Synthroid -) 50 mcg PO DAILY [facility] Last Admin: 06/18/18 10:16 Dose: 50 mcg Metoprolol Tartrate (Lopressor -) 25 mg PO BID [facility] Last Admin: 06/18/18 21:13 Dose: 25 mg Oxycodone HCl (Roxicodone -) 5 mg PO Q4H PRN PRN Reason: PAIN LEVEL 6-10 Last Admin: 06/19/18 06:32 Dose: 5 mg Pantoprazole Sodium (Protonix -) 40 mg PO DAILY [facility] Last Admin: 06/18/18 10:16 Dose: 40 mg Prednisone (Deltasone -) 5 mg PO DAILY [facility] Last Admin: 06/18/18 10:16 Dose: 5 mg - Objective Vital Signs: Vital Signs Temperature 97.6 F 06/19/18 06:00 Pulse Rate 82 06/19/18 06:00 Respiratory Rate 20 06/19/18 06:00 Blood Pressure 131/71 06/19/18 06:00 O2 Sat by Pulse Oximetry (%) 98 06/18/18 21:00 Constitutional: Yes: Calm, Thin Eyes: Yes: WNL HENT: Yes: WNL Neck: Yes: WNL Cardiovascular: Yes: WNL Respiratory: Yes: WNL Gastrointestinal: Yes: Soft ...Rectal Exam: Yes: Deferred Genitourinary: No: Anuria Breast(s): Yes: WNL Musculoskeletal: Yes: Joint Stiffness, Joint Swelling, Muscle Weakness Edema: No Peripheral Pulses WNL: No Peripheral Pulses: Left Doralis Pedis: 1+, Right Dorsalis Pedis: 1+ Integumentary: Yes: WNL Neurological: Yes: Alert, Oriented, Unsteady Gait, Weakness Psychiatric: Yes: WNL Labs: CBC, BMP 06/19/18 05:30 06/19/18 05:30 Abnormal Lab Results 06/18/18 06/18/18 06/19/18 05:30 13:20 05:30 Plt Count 560 H MPV 6.2 L PTT (Actin FS) 67.8 H Creatine Kinase 289 H Troponin I 0.79 H* 06/19/18 05:30 Plt Count MPV PTT (Actin FS) 84.6 H Creatine Kinase Troponin I - ....Imaging Other: Image Reviewed (NSR; onc set of ventricular couplets (hypokalemic hours before)) Problem List - Problems (1) Elevated troponin I level Assessment/Plan: TNI trending down. NO chest pain or dyspnea. No leg edema; no JVD. Will discontinue IV heparin and telemetry. F/u lipid panel (elevated LDL in 2015). F/u ECHO for LVEF, regional wall motion, valve status.Unless major changes are noted, I would tend to be conservative in managing cardiac issues, with medications, exercise, and diet adjustments, and reserving coronarry artery workup for major increase in symptoms, EKG, wall motion, or TNI.Pt is frail, has other major comorbidities, and has periods of confusion. Code(s): R74.8 - ABNORMAL LEVELS OF OTHER SERUM ENZYMES (2) Knee pain, left Assessment/Plan: pain management. XRAY shows no gross fracture. Code(s): M25.562 - PAIN IN LEFT KNEE Qualifiers: Chronicity: acute Qualified Code(s): M25.562 - Pain in left knee (3) Abnormal EKG Code(s): R94.31 - ABNORMAL ELECTROCARDIOGRAM [ECG] [EKG] (4) Dilated cbd, acquired Code(s): K83.8 - OTHER SPECIFIED DISEASES OF BILIARY TRACT (5) Elevated BP Assessment/Plan: on metoprolol; change to bid for better 24 hour coverage. Code(s): I10 - ESSENTIAL (PRIMARY) HYPERTENSION (6) Gastroenteritis Code(s): K52.9 - NONINFECTIVE GASTROENTERITIS AND COLITIS, UNSPECIFIED (7) Hypokalemia Assessment/Plan: repleted, and WNL. Code(s): E87.6 - HYPOKALEMIA (8) Confusion Assessment/Plan: Pt is alert and oriented at times; at others (?owning"), she reportedly sees persons in her room who are not there, becomes belligerant. Code(s): R41.0 - DISORIENTATION, UNSPECIFIED
[2018-06-19 09:26] LABS: CHOLESTEROL 186 mg/dL (50-200); TRIGLYCERIDES 111 mg/dL (35-160)
[2018-06-19 09:27] LABS: HDL CHOLESTEROL 70 mg/dL (40-60)
--- NOTE | 2018-06-19 10:11 | PN ---
Progress Note (short form) - Note Progress Note: Ortho Pt seen and examined c/o left knee pain- no improvement from the injection. Pt also keeps flexing her knee and not keeping it in extension + swelling, + ttp, decr rom, nvi a/p Risks and benefits were d/w pt given djd in left knee and failing conservative treatment, only other option is for left tkr Pt will think about having this done- she had done well from THR d/w Dr. Morelos
[2018-06-19] MEDS: PANTOPRAZOLE 40 MG TABLET (FP) PO SCH (11:12)
[2018-06-19] MEDS: METOPROLOL TARTRATE 25 MG TABLET (FP) PO SCH ×2 (11:12→21:02)
[2018-06-19] MEDS: LEVOTHYROXINE NA 50 MCG TABLET (FP) PO SCH (11:12)
[2018-06-19] MEDS: ISOSORBIDE MONONITRATE 30 MG TAB.SR.24H (FP) PO SCH (11:12)
[2018-06-19] MEDS: predniSONE 5 MG TABLET (UD) PO SCH (11:12)
--- NOTE | 2018-06-19 11:50 | PN ---
Progress Note (short form) - Note Progress Note: no chest pain , has pain in left knee and hip no SOB transferred to [facility] surg Vital Signs - 24 hr 06/18/18 06/18/18 06/18/18 14:00 17:00 21:00 Temperature 98.8 F 98.0 F Pulse Rate 90 89 Respiratory 20 20 Rate Blood Pressure 114/68 148/79 O2 Sat by Pulse 98 Oximetry (%) 06/18/18 06/19/18 06/19/18 22:00 01:19 05:00 Temperature 98.0 F 98.2 F 97.6 F Pulse Rate 94 H 82 82 Respiratory 20 20 20 Rate Blood Pressure 121/69 143/66 131/71 O2 Sat by Pulse Oximetry (%) 06/19/18 06/19/18 06/19/18 06:00 08:48 08:57 Temperature 97.6 F 98.9 F Pulse Rate 82 92 H Respiratory 20 18 Rate Blood Pressure 131/71 148/68 O2 Sat by Pulse 100 Oximetry (%) Current Medications Generic Name Dose Route Start Last Admin Trade Name Freq PRN Reason Stop Dose Admin Atorvastatin Calcium 80 mg 06/17/18 11:15 06/18/18 21:13 Lipitor - PO 80 mg HS DAVID Administration Heparin Sodium (Porcine) 5,000 unit 06/17/18 12:12 Heparin - IVPUSH PRN PRN Heparin Isosorbide Mononitrate 30 mg 06/16/18 10:00 06/19/18 11:12 Imdur - PO 30 mg DAILY DAVID Administration Levothyroxine Sodium 50 mcg 06/16/18 10:00 06/19/18 11:12 Synthroid - PO 50 mcg DAILY DAVID Administration Metoprolol Tartrate 25 mg 06/17/18 22:00 06/19/18 11:12 Lopressor - PO 25 mg BID DAVID Administration Oxycodone HCl 5 mg 06/15/18 11:29 06/19/18 11:16 Roxicodone - PO 5 mg Q4H PRN Administration PAIN LEVEL 6-10 Pantoprazole Sodium 40 mg 06/16/18 10:00 06/19/18 11:12 Protonix - PO 40 mg DAILY DAVID Administration Prednisone 5 mg 06/16/18 10:00 06/19/18 11:12 Deltasone - PO 5 mg DAILY DAVID Administration Laboratory Results - last 24 hr 06/18/18 06/19/18 06/19/18 13:20 05:30 05:30 WBC 9.6 RBC 3.81 Hgb 11.3 Hct 34.5 MCV 90.4 MCH 29.5 MCHC 32.7 RDW 14.8 Plt Count 560 H MPV 6.2 L PTT (Actin FS) 67.8 H 84.6 H Sodium Potassium Chloride Carbon Dioxide Anion Gap BUN Creatinine Creat Clearance w eGFR Random Glucose Calcium Triglycerides Cholesterol Total LDL Cholesterol HDL Cholesterol 06/19/18 06/19/18 05:30 05:30 WBC RBC Hgb Hct MCV MCH MCHC RDW Plt Count MPV PTT (Actin FS) Sodium 137 Potassium 4.6 Chloride 104 Carbon Dioxide 25 Anion Gap 8 BUN 8 Creatinine 0.6 Creat Clearance w eGFR > 60 Random Glucose 97 Calcium 8.8 Triglycerides 111 Cancelled Cholesterol 186 Cancelled Total LDL Cholesterol 109 H Cancelled HDL Cholesterol 70 H Cancelled S1 S2 RRR lungs clear Abd- soft, Nt No edema left knee hyperflexed, effusion calcified deposits to thighs PLAN - medical management for NSTEMI -echo pending -- start ASA -- pain control -- PT eval -- will need SNF Problem List - Problems (1) Asymptomatic hypertensive urgency Code(s): I16.0 - HYPERTENSIVE URGENCY (2) Knee pain, left Code(s): M25.562 - PAIN IN LEFT KNEE Qualifiers: Chronicity: acute Qualified Code(s): M25.562 - Pain in left knee (3) Arthritis Code(s): M19.90 - UNSPECIFIED OSTEOARTHRITIS, UNSPECIFIED SITE (4) Chest pain Code(s): R07.9 - CHEST PAIN, UNSPECIFIED (5) Chest pain Code(s): R07.9 - CHEST PAIN, UNSPECIFIED (6) Elevated troponin I level Code(s): R74.8 - ABNORMAL LEVELS OF OTHER SERUM ENZYMES
--- NOTE | 2018-06-19 15:09 | ECHO ---
Name: MARY WADE Exam:Adult Echocardiogram Study Date: 06/19/2018 10:58 AM Age: 88 yrs Reason For Study: elev tni Height: 60 in Weight: 90 lb BSA: 1.3 m2 MMode/2D Measurements & Calculations IVSd: 1.2 cm Ao root diam: 2.7 cm LVIDd: 3.8 cm LA dimension: 3.2 cm LVIDs: 2.4 cm LVPWd: 0.83 cm EDV(Teich): 62.8 ml TAPSE: 1.6 cm ESV(Teich): 21.1 ml RV S Kodak: 6.9 cm/sec Doppler Measurements & Calculations MV E max kodak: 34.6 cm/sec MR max kodak: 230.8 cm/sec MV A max kodak: 58.2 cm/sec MR max P.3 mmHg MV E/A: 0.59 TR max kodak: 235.8 cm/sec PI end-d kodak: 108.6 cm/sec TR max P.4 mmHg Med Peak E' Kodak: 2.8 cm/sec Med E/e': 12.2 Lat Peak E' Kodak: 4.7 cm/sec Lat E/e': 7.3 Procedure A complete two-dimensional transthoracic echocardiogram was performed (2D, M-mode, Doppler and color flow Doppler). Left Ventricle There is mild concentric left ventricular hypertrophy. The left ventricular ejection fraction is norm al. Ejection Fraction = 60-65%. The left ventricular wall motion is normal. Right Ventricle The right ventricle is normal in size and function. Atria Normal left and right atrial size and function. Mitral Valve There is mild mitral regurgitation. Tricuspid Valve There is mild tricuspid regurgitation. Right ventricular systolic pressure is normal. Aortic Valve There is moderate aortic sclerosis.;. No hemodynamically significant valvular aortic stenosis. No aor tic regurgitation is present. Pulmonic Valve Mild pulmonic valvular regurgitation. Great Vessels The aortic root is normal size. Pericardium/Pleura There is no pericardial effusion. Interpretation Summary There is mild concentric left ventricular hypertrophy. The left ventricular ejection fraction is normal. The right ventricle is normal in size and function. There is mild mitral regurgitation. There is mild tricuspid regurgitation. There is moderate aortic sclerosis. Mild pulmonic valvular regurgitation. MD Bryon Barger 06/19/2018 03:09 PM
[2018-06-19] MEDS: ATORVASTATIN CA 80 MG TABLET (FP) PO SCH (21:02)
[2018-06-20] MEDS: oxyCODONE HCL 5 MG TABLET PO PRN ×3 (01:01→13:09)
[2018-06-20] MEDS ORDERED: LEVOTHYROXINE NA 50 MCG TABLET (FP) PO SCH (07:00)
[2018-06-20 08:42] LABS: HEMATOCRIT 36.3 % (32.4-45.2); HEMOGLOBIN 11.9 GM/dL (10.7-15.3); MCH 29.8 pg (25.7-33.7); MCHC 32.8 g/dl (32.0-36.0); MEAN CELL VOLUME 90.7 fl (80-96); PLATELET COUNT 596 K/MM3 (134-434); RBC 4.01 M/mm3 (3.60-5.2); RDW 14.9 % (11.6-15.6); WHITE BLOOD COUNT 9.2 K/mm3 (4.0-10.0)
[2018-06-20] MEDS: METOPROLOL TARTRATE 25 MG TABLET (FP) PO SCH (09:14)
[2018-06-20] MEDS ORDERED: predniSONE 5 MG TABLET (UD) PO SCH (10:00)
[2018-06-20] MEDS ORDERED: ASPIRIN 81 MG CHEWABLE TABLETS PO SCH (10:00)
[2018-06-20] MEDS ORDERED: PANTOPRAZOLE 40 MG TABLET (FP) PO SCH (10:00)
[2018-06-20] MEDS ORDERED: ISOSORBIDE MONONITRATE 30 MG TAB.SR.24H (FP) PO SCH (10:00)
--- NOTE | 2018-06-20 10:59 | DS ---
Physical Examination Vital Signs: Vital Signs Temperature 98.1 F 06/20/18 08:59 Pulse Rate 95 H 06/20/18 08:59 Respiratory Rate 18 06/20/18 08:59 Blood Pressure 157/81 06/20/18 08:59 O2 Sat by Pulse Oximetry (%) 98 06/19/18 21:00 Findings/Remarks: pt seen/ examined comfortable chart reviewed. denies cp/ sob. Constitutional: Yes: No Distress, Calm Eyes: Yes: Conjunctiva Clear Neck: Yes: Supple Cardiovascular: Yes: Regular Rate and Rhythm Respiratory: Yes: CTA Bilaterally Edema: No Neurological: Yes: Alert Labs: CBC, BMP 06/20/18 07:00 06/19/18 05:30 Discharge Summary Reason For Visit: ASYMPTOMATIC HYPERTENSIVE URGENCY Current Active Problems Asymptomatic hypertensive urgency (Acute) Chest pain (Acute) Chest pain (Acute) Confusion (Acute) Elevated troponin I level (Acute) Hypokalemia (Acute) Knee pain, left (Acute) Hospital Course: admitted for left knee pain. got injection. ortho followed. will need tkr in future hospital course complicated by nstmi --medically managed -- cardiology followed. now stable for d/c to residential -- str pt in agreement. meds reconcilled. discussed with nursing staff also. Condition: Fair - Instructions Diet, Activity, Other Instructions: Discharge Instructions: -The xray of your knee did not show any broken bones or swelling -A prescription for pain medication has been sent to your pharmacy; please take as prescribed if needed for pain -Call Dr. Morelos on Saturday to schedule a follow up appointment as soon as possible -Follow RICE instructions and use YAQUELIN bandage for comfort. Referrals: Shaggy Morelos MD [Staff Physician] - (Call Saturday) Disposition: [facility] - Home Medications Comprehensive Discharge Medication List: Ambulatory Orders Clopidogrel Bisulfate [Plavix] 75 mg PO DAILY 06/06/18 Folic Acid 1 mg PO DAILY 06/06/18 Isosorbide Mononitrate [Isosorbide Mononitrate ER] 30 mg PO DAILY 06/06/18 Levothyroxine [Synthroid -] 50 mcg PO DAILY 06/06/18 Multivitamins [Multivit ([facility] Formulary)] 1 tab PO DAILY 06/06/18 Aspirin [ASA -] 81 mg PO DAILY tab.chew 06/20/18 Atorvastatin Ca [Lipitor] 80 mg PO HS tablet 06/20/18 Heparin - 5,000 unit SQ BID #30 ml 06/20/18 Metoprolol Tartrate [Lopressor -] 25 mg PO BID tablet 06/20/18 Pantoprazole Sodium [Protonix -] 40 mg PO DAILY tablet.ec 06/20/18 oxyCODONE HCL [Roxicodone -] 5 mg PO Q4H PRN #30 tablet MDD 4 06/20/18 colace 100 mg tid miralax 17 gm daily
--- NOTE | 2018-06-20 12:16 | PN ---
Progress Note, Physician History of Present Illness: 88 y/o afebrile black female with PMH OA with left hip replacement in 10/2017 for [id number] OA, HLD, CAD (on plavix) c/o worsened left knee pain for over 1 week. HISTORY OF PRESENT ILLNESS: The patient states 8 days ago she started having left knee pain. She was seen here, had a negative left knee xray and a doppler that was negative for DVT. She was discharged. She states her left knee pain and swelling has gotten worse and she cannot extend her left knee. She states she can't walk. She denies fall, trauma, redness, streaking, fever, chills. PMHx: CAD--> FELIPA RCA in 2010;; FELIPA m LCX 03/18; negqative stress MIBI 08/2012 Bifascicular block COPD HTN Hyperlipidemia; hypothyroidism; PAD s/p angiogram showing 30-40% diffuse disease 03/2012 RA/OA TIA 06/2012; [facility] at [facility] - Current Medication List Current Medications: Active Medications Aspirin (Asa -) 81 mg PO DAILY [facility] Last Admin: 06/20/18 09:14 Dose: 81 mg Atorvastatin Calcium (Lipitor -) 80 mg PO HS [facility] Last Admin: 06/19/18 21:02 Dose: 80 mg Isosorbide Mononitrate (Imdur -) 30 mg PO DAILY [facility] Last Admin: 06/20/18 09:14 Dose: 30 mg Levothyroxine Sodium (Synthroid -) 50 mcg PO DAILY@0700 [facility] Last Admin: 06/20/18 06:10 Dose: 50 mcg Metoprolol Tartrate (Lopressor -) 25 mg PO BID [facility] Last Admin: 06/20/18 09:14 Dose: 25 mg Oxycodone HCl (Roxicodone -) 5 mg PO Q4H PRN PRN Reason: PAIN LEVEL 6-10 Last Admin: 06/20/18 07:43 Dose: 5 mg Pantoprazole Sodium (Protonix -) 40 mg PO DAILY [facility] Last Admin: 06/20/18 09:15 Dose: 40 mg Prednisone (Deltasone -) 5 mg PO DAILY [facility] Last Admin: 06/20/18 09:15 Dose: 5 mg - Objective Vital Signs: Vital Signs Temperature 98.1 F 06/20/18 08:59 Pulse Rate 95 H 06/20/18 08:59 Respiratory Rate 18 06/20/18 08:59 Blood Pressure 157/81 06/20/18 08:59 O2 Sat by Pulse Oximetry (%) 98 06/20/18 09:00 Eyes: Yes: WNL, Conjunctiva Clear, EOM Intact HENT: Yes: WNL, Atraumatic, Normocephalic Neck: Yes: WNL, Supple, Trachea Midline Cardiovascular: Yes: WNL, Regular Rate and Rhythm Respiratory: Yes: WNL, Regular, CTA Bilaterally Gastrointestinal: Yes: WNL, Normal Bowel Sounds Genitourinary: Yes: WNL Musculoskeletal: Yes: WNL Extremities: Yes: WNL Edema: No Integumentary: Yes: WNL Neurological: Yes: WNL, Alert, Oriented ...Motor Strength: WNL Psychiatric: Yes: WNL Labs: CBC, BMP 06/20/18 07:00 06/19/18 05:30 Assessment/Plan - Problems (1) Elevated troponin I level Assessment/Plan: TNI trending down. NO chest pain or dyspnea. No leg edema; no JVD. Will discontinue IV heparin and telemetry. F/u lipid panel (elevated LDL in 2014). F/u ECHO for LVEF, regional wall motion, valve status.Unless major changes are noted, I would tend to be conservative in managing cardiac issues, with medications, exercise, and diet adjustments, and reserving coronarry artery workup for major increase in symptoms, EKG, wall motion, or TNI.Pt is frail, has other major comorbidities, and has periods of confusion. Code(s): R74.8 - ABNORMAL LEVELS OF OTHER SERUM ENZYMES (2) Knee pain, left Assessment/Plan: pain management. XRAY shows no gross fracture. Code(s): M25.562 - PAIN IN LEFT KNEE Qualifiers: Chronicity: acute Qualified Code(s): M25.562 - Pain in left knee (3) Abnormal EKG Code(s): R94.31 - ABNORMAL ELECTROCARDIOGRAM [ECG] [EKG] (4) Dilated cbd, acquired Code(s): K83.8 - OTHER SPECIFIED DISEASES OF BILIARY TRACT (5) Elevated BP Assessment/Plan: on metoprolol; change to bid for better 24 hour coverage. Code(s): I10 - ESSENTIAL (PRIMARY) HYPERTENSION (6) Gastroenteritis Code(s): K52.9 - NONINFECTIVE GASTROENTERITIS AND COLITIS, UNSPECIFIED (7) Hypokalemia Assessment/Plan: repleted, and WNL. Code(s): E87.6 - HYPOKALEMIA (8) Confusion Assessment/Plan: Pt is alert and oriented at times; at others (?ing"), she reportedly sees persons in her room who are not there, becomes belligerant. Code(s): R41.0 - DISORIENTATION, UNSPECIFIED
[2018-06-20 13:21] VITALS: BMI 15.0
--- NOTE | 2018-06-20 14:18 | PN ---
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
[2018-06-20 14:57] VITALS: BP 129/75; PULSE 92; TEMP 98.3
== END 2018-06-20 15:49 | DRG 280 ==
LOC: JER 12:01 → JERBED 06-15 01:36 → J5S 06-15 05:55 → J4W 06-17 11:16 → J8W 06-19 11:48
PROVIDERS: ADMIT Internal Medicine; ATTEND Internal Medicine
DX: I16.0 Hypertensive urgency (principal); E43 Unspecified severe protein-calorie malnutrition; I21.4 Non-ST elevation (NSTEMI) myocardial infarction; I45.2 Bifascicular block; E87.6 Hypokalemia; I25.10 Atherosclerotic heart disease of native coronary artery without angina pectoris; E78.5 Hyperlipidemia, unspecified; Z96.641 Presence of right artificial hip joint; D64.9 Anemia, unspecified; M17.12 Unilateral primary osteoarthritis, left knee; E03.9 Hypothyroidism, unspecified; J44.9 Chronic obstructive pulmonary disease, unspecified; Z95.5 Presence of coronary angioplasty implant and graft; Z86.11 Personal history of tuberculosis; Z90.2 Acquired absence of lung [part of]; K21.9 Gastro-esophageal reflux disease without esophagitis; M19.90 Unspecified osteoarthritis, unspecified site; Z87.891 Personal history of nicotine dependence; R41.0 Disorientation, unspecified
CPT/HCPCS: 36415; 71045-TC-FY; 73560-TC-LT-FY; 80048; 80053; 80061; 81003; 81015; 82550; 82553; 82803; 83036; 83721; 83735; 83880; 84100; 84484; 85025; 85027; 85379; 85730; 87086; 93005; 93010; 93306-TC; 97116-GP; 97162-GP; 99285-25; J0131; J1644